=== PATIENT | female | born 1930 | race Hispanic/Latino ===

== ENCOUNTER 2017-05-11 10:45 | Inpatient (IN) | payer MEDICARE ==
[2017-05-11] MEDS ORDERED: Sodium Chloride 0.9% 1,000 ML IV STA (11:43)
--- NOTE | 2017-05-11 11:49 | ED PDOC ---
Arrival/HPI - General Chief Complaint: GI Problem Time Seen by Provider: 05/11/17 11:41 Historian: Patient - History of Present Illness Narrative History of Present Illness (Text): 05/11/17 11:44 Celestina Cruz is a 87 year old female, with a history of diverticulitis, TIA , and recent aortic valve replacement on Plavix, presents to the emergency department complaining of 2 day duration of rectal bleeding. States that symptoms are similar to her previous episode of diverticulitis. Reports she noticed bright red blood while wiping. Denies any abdominal pain, straining, and constipation. Patient was advised by to stop taking Plavix. She also complains of lightheadedness, generalized weakness and decreased appetite since the onset of symptoms. Denies any fever, chills ,chest pain, shortness of breath, nausea, vomiting, diarrhea, urinary symptoms or any other complaints at this time. PMD: . Time/Duration: Other (2 days ) Symptom Onset: Sudden Severity Level: Mild Activities at Onset: Light Past Medical History - Provider Review Nursing Documentation Reviewed: Yes - Infectious Disease Hx of Infectious Diseases: None - Tetanus Immunization Tetanus Immunization: Unknown - Reproductive Menopause: Yes - Cardiac Hx Cardiac Disorders: Yes (aortic sclerosis, MR) Hx Hypertension: Yes - Pulmonary Hx Chronic Obstructive Pulmonary Disease (COPD): No - Neurological HX Cerebrovascular Accident: No - HEENT Hx HEENT Disorder: No Hx Blind: No Hx Cataracts: No Hx Deafness: No Hx Difficulty Chewing: No Hx Epistaxis: No Hx Glaucoma: No Hx Macular Degeneration: No - Renal Hx Renal Failure: No - Endocrine/Metabolic Hx Diabetes Mellitus Type 1: No Hx Diabetes Mellitus Type 2: No Hx Hypothyroidism: No - Hematological/Oncological Hx Blood Transfusions: Yes (2 units before transfer ) Hx Blood Transfusion Reaction: No - Integumentary Hx Dermatological Disorder: No Hx Basal Cell Carcinoma: No Hx Eczema: No Hx Melanoma: No Hx Psoriasis: No Hx Squamous Cell Carcinoma: No - Musculoskeletal/Rheumatological Hx Arthritis: No - Gastrointestinal Hx Gastrointestinal Disorders: No Hx Colostomy: No Hx Crohn's Disease: No Hx Diverticulitis: No Hx Gall Bladder Disease: No Hx Gastroesophageal Reflux: Yes (history of Gi bleed) Hx Ileostomy: No Hx Liver Failure: No Hx Pancreatitis: No HX Swallowing Problems: No - Genitourinary/Gynecological Hx Genitourinary Disorders: No Hx Hematuria: No Hx Incontinence: No Hx Sexually Transmitted Diseases: No Hx Urinary Tract Infection: No - Psychiatric Hx Psychophysiologic Disorder: No Hx Anxiety: No Hx Bipolar Disorder: No Hx Depression: No Hx Emotional Abuse: No Hx Hallucinations: No Hx Panic Disorder: No Hx Post Traumatic Stress Disorder: No Hx Psychosis: No Hx Physical Abuse: No Hx Schizophrenia: No Hx Sexual Abuse: No Hx Substance Use: No - Past Surgical History Past Surgical History: No Previous - Surgical History Hx Tonsillectomy: Yes Hx Valve Replacement: Yes (03/2017) Other/Comment: hip surgery implant left - Anesthesia Hx Anesthesia: Yes Hx Anesthesia Reactions: No Hx Malignant Hyperthermia: No - Suicidal Assessment Feels Threatened In Home Enviroment: No Family/Social History - Physician Review Nursing Documentation Reviewed: Yes Family/Social History: No Known Family HX Smoking Status: Former Smoker Hx Alcohol Use: No Hx Substance Use: No Hx Substance Use Treatment: No Allergies/Home Meds Allergies/Adverse Reactions: Allergies No Known Allergies Allergy (Verified 05/11/17 11:21) Home Medications: Home Meds Medication Instructions Recorded Confirmed Aspirin [Aspirin Chewable] 81 mg PO DAILY 05/11/17 05/11/17 Atorvastatin [Lipitor] 40 mg PO HS 05/11/17 05/11/17 Clopidogrel [Plavix] 1 tab PO DAILY 05/11/17 05/11/17 Review of Systems - Physician Review All systems were reviewed & negative as marked: Yes - Review of Systems Constitutional: Fatigue. absent: Weight Change, Fevers Respiratory: Normal. absent: SOB, Cough, Sputum Cardiovascular: Normal. absent: Chest Pain, Palpitations Gastrointestinal: Appetite Changes, Hematochezia, Other (rectal bleeding ). absent: Abdominal Pain, Diarrhea, Nausea, Vomiting, Hematemesis Genitourinary Female: Normal. absent: Dysuria, Frequency Musculoskeletal: Normal Neurological: Other (lightheadedness ). absent: Headache, Focal Weakness Physical Exam Vital Signs Reviewed: Yes Vital Signs Temp Pulse Resp BP Pulse Ox 05/11/17 14:47 109 H 18 139/67 100 05/11/17 12:17 100 H 18 147/73 97 05/11/17 11:11 98.4 F 118 H 19 137/79 96 Temperature: Afebrile Blood Pressure: Normal Pulse: Tachycardic Respiratory Rate: Normal Appearance: Positive for: Well-Appearing, Non-Toxic, Comfortable Pain Distress: None Mental Status: Positive for: Alert and Oriented X 3 - Systems Exam Head: Present: Atraumatic, Normocephalic Pupils: Present: PERRL Conjunctiva: Present: Normal Respiratory/Chest: Present: Clear to Auscultation, Good Air Exchange. No: Respiratory Distress, Accessory Muscle Use Cardiovascular: Present: Regular Rate and Rhythm, Normal S1, S2. No: Murmurs Abdomen: Present: Normal Bowel Sounds. No: Tenderness, Distention, Peritoneal Signs, Rebound, Guarding Rectal: Present: Melena, Other (Chaperoned by EMTDorinda. guaiac positive. + ve black stool. ). No: Rectal Tenderness, Hemorrhoids, Fissures Upper Extremity: Present: Normal Inspection. No: Cyanosis, Edema Lower Extremity: Present: Normal Inspection. No: Edema Neurological: Present: GCS=15, CN II-XII Intact, Speech Normal, Motor Func Grossly Intact, Normal Sensory Function Skin: Present: Warm, Dry, Normal Color. No: Rashes Psychiatric: Present: Alert, Oriented x 3, Normal Insight, Normal Concentration Medical Decision Making ED Course and Treatment: 05/11/17 11:52 Impression: A 87 year old female who presents to the emergency department complaining of rectal bleeding for past 2 days. Differential Diagnosis included but are not limited to: GI bleed r/o diverticulitis Plan: -- EKG -- CT Abd/Pel -- Labs, cardiac enzymes -- Chest X-ray -- Protonix -- IVF -- Urinalysis -- Reassess and disposition Progress Notes: 05/11/17 11:54 EKG interpreted by me: Sinus Tachycardia @ 105 bpm. Normal [place]. Normal interval. 05/11/17 14:46 Chest X-ray read by radiologist IMPRESSION: No acute cardiopulmonary disease. 05/11/17 15:03 PROCEDURE: CT Abdomen and Pelvis with contrast FINDINGS: IMPRESSION: 1. No bowel or urinary tract obstruction, mesenteric edema, ascites or free intraperitoneal gas. 2. Distended but thin walled urinary bladder. 3. Cholelithiasis within a contracted gallbladder. 4. Extensive diffuse colonic diverticular disease mostly concentrated at the sigmoid segment without acute findings. 05/11/17 15:[address] free[address] reviewed. Patient's PMD is Dr. Florian who is being covered by the Hospitalist. I discussed the case with Dr. Owusu who will place under his service. - Critical Care Critical Care Minutes: 30 minutes - Lab Interpretations Lab Results: 05/11/17 12:00 05/11/17 12:00 Lab Results 05/11/17 12:20: Urine Color Yellow, Urine Appearance Clear, Urine pH 6.0, Ur Specific [place] 1.020, Urine Protein Negative, Urine Glucose (UA) Negative, Urine Ketones Negative, Urine Blood Large H, Urine Nitrate Positive H, Urine Bilirubin Negative, Urine Urobilinogen 0.2, Ur Leukocyte Esterase Small H, Urine RBC 0 - 2, Urine WBC 1 - 3, Ur Epithelial Cells 1 - 3, Urine Bacteria Large 05/11/17 12:00: Blood Type A POSITIVE, Antibody Screen Negative, BBK History Checked Patient has bt 05/11/17 12:00: Sodium 139, Potassium 4.0, Chloride 104, Carbon Dioxide 26, Anion Gap 13, BUN 27 H, Creatinine 1.0, Est GFR ( Amer) > 60, Est GFR ( Non-Af Amer) 52, Random Glucose 116 H, Calcium 9.6, Total Bilirubin 0.8, AST 32 , ALT 32, Alkaline Phosphatase 68, Lactate Dehydrogenase 706 H, Total Creatine Kinase 53, Troponin I < 0.01, Total Protein 6.9, Albumin 4.1, Globulin 2.8, Albumin/Globulin Ratio 1.5, Lipase 79 05/11/17 12:00: PT 11.1, INR 1.03, APTT 25.0 05/11/17 12:00: WBC 7.3 D, RBC 3.14 L, Hgb 9.6 L, Hct 29.1 L, MCV 92.7, MCH 30.6, MCHC 33.0, RDW 13.8, Plt Count 252, MPV 9.7, Gran % 77.6 H, Lymph % (Auto ) 15.6 L, [place] % (Auto) 6.3 H, Eos % (Auto) 0.4 L, Baso % (Auto) 0.1, Gran # 5.62, Lymph # 1.1 L, [place] # 0.5, Eos # 0.0, Baso # 0.01 I have reviewed the lab results: Yes Interpretation: Abnormal lab values (hgb 9 compared to 12 on last admission) - RAD Interpretation Radiology Orders: 05/11/17 11:42 CHEST PORTABLE [RAD] Stat 05/11/17 11:43 ABD & PELVIS IV CONTRAST ONLY [CT] Stat Forging Machine Hand: Radiologist - Medication Orders Current Medication Orders: Discontinued Medications Sodium Chloride (Sodium Chloride 0.9%) 1,000 mls @ 999 mls/hr IV .Q1H1M STA Stop: 05/11/17 12:43 Last Admin: 05/11/17 12:04 Dose: 999 mls/hr Iohexol (Omnipaque 350 100 Ml) Confirm Administered Dose 350 mg .ROUTE .STK-MED ONE Stop: 05/11/17 13:53 Pantoprazole Sodium (Protonix Inj) 80 mg IVP STAT STA Stop: 05/11/17 11:43 Last Admin: 05/11/17 12:05 Dose: 80 mg - Scribe Statement The provider has reviewed the documentation as recorded by the Rachealibpaula Nuñez Provider Attestation: Provider Scribe Attestation: All medical record entries made by the Rachealibpaula were at my direction and personally dictated by me. I have reviewed the chart and agree that the record accurately reflects my personal performance of the history, physical exam, medical decision making, and the department course for this patient. I have also personally directed, reviewed, and agree with the discharge instructions and disposition. Disposition/Present on Arrival - Present on Arrival Any Indicators Present on Arrival: No History of DVT/PE: No History of Uncontrolled Diabetes: No Urinary Catheter: No History of Decub. Ulcer: No History Surgical Site Infection Following: None - Disposition Have Diagnosis and Disposition been Completed?: Yes Diagnosis: Gastrointestinal bleed Disposition: HOSPITALIZED Disposition Time: 15:30 Patient Plan: Admission Condition: FAIR Referrals: Philip Florian MD [Primary Care Provider] - Follow up with primary Forms: [employer] ([place]orean)
[2017-05-11 12:10] LABS: ADD MANUAL DIFF? NO
[2017-05-11 12:13] LABS: BASO # 0.01 K/mm3 (0.0-2.0); BASO % 0.1 % (0.0-3.0); EOS % 0.4 % (1.5-5.0); GRAN # 5.62 (1.4-6.5); GRAN % 77.6 % (50.0-68.0); HEMATOCRIT 29.1 % (36.0-48.0); LYMPH # 1.1 (1.2-3.4); LYMPH % 15.6 % (22.0-35.0); MEAN CELL VOLUME 92.7 fL (80.0-105.0); MEAN CORPUSCULAR HEMOGLOBIN 30.6 pg (25.0-35.0); MEAN PLATELET VOLUME 9.7 fl (7.0-11.0); MONO # 0.5 (0.1-0.6); MONO % 6.3 % (1.0-6.0); PLATELET COUNT 252 10^3/uL (120.0-450.0); RED CELL DISTRIBUTION WIDTH 13.8 % (11.5-14.5); WHITE BLOOD COUNT 7.3 10^3/ul (4.5-11.0)
[2017-05-11 12:24] LABS: INR 1.03 (0.93-1.08)
[2017-05-11 12:25] LABS: ALB/GLOB RATIO 1.5 (1.1-1.8); ALKALINE PHOSPHATASE 68 U/L (38-133); ALT/SGPT 32 U/L (7-56); AST/SGOT 32 U/L (15-39); BILIRUBIN,TOTAL 0.8 mg/dL (0.2-1.3); BLOOD UREA NITROGEN 27 mg/dL (7-21); CALCIUM 9.6 mg/dL (8.4-10.5); CARBON DIOXIDE 26 mmol/L (21-33); CHLORIDE 104 mmol/L (98-107); GFR AFRICAN-AMERICAN > 60; GLUCOSE,RANDOM 116 mg/dL (70-110); LIPASE 79 U/L (23-300); SODIUM 139 mmol/L (132-148); TOTAL PROTEIN 6.9 g/dL (5.8-8.3)
[2017-05-11 12:26] LABS: URINE BILIRUBIN NEGATIVE (NEGATIVE); URINE BLOOD LARGE (NEGATIVE); URINE GLUCOSE (UA) NEGATIVE (NEGATIVE); URINE KETONE NEGATIVE (NEGATIVE); URINE LEUKOCYTE ESTERASE SMALL Leu/uL (NEGATIVE); URINE PROTEIN NEGATIVE mg/dL (<30 mg/dL); URINE UROBILINOGEN 0.2 E.U./dL (<1 E.U./dL)
[2017-05-11 12:27] LABS: URINE APPEARANCE CLEAR (CLEAR); URINE COLOR YELLOW (YELLOW)
[2017-05-11 12:36] LABS: TROPONIN I < 0.01 ng/mL
[2017-05-11 12:44] LABS: URINE BACTERIA LARGE (NEG); URINE RBC 0 - 2 /hpf (0-2)
[2017-05-11] MEDS ORDERED: Iohexol 350 MG/100 ML VIAL ONE (13:52)
--- NOTE | 2017-05-11 14:25 | RAD ---
HISTORY: gi bleed COMPARISON: Prior portable chest radiograph 02/03/2015. FINDINGS: LUNGS: No active pulmonary disease. PLEURA: No significant pleural effusion identified, no pneumothorax apparent. CARDIOVASCULAR: Normal. Prominent epicardial fat again appreciated at the right heart border. OSSEOUS STRUCTURES: No significant abnormalities. VISUALIZED UPPER ABDOMEN: Normal. OTHER FINDINGS: None. IMPRESSION: No acute cardiopulmonary disease.
--- NOTE | 2017-05-11 14:54 | CT ---
PROCEDURE: CT Abdomen and Pelvis with contrast HISTORY: gi bleed r/o diverticulitis` COMPARISON: None. TECHNIQUE: Contrast dose: Omnipaque 350, 100 cc Radiation dose: Total exam DLP = 469 mGy-cm. This CT exam was performed using one or more of the following dose reduction techniques: Automated exposure control, adjustment of the mA and/or kV according to patient size, and/or use of iterative reconstruction technique. FINDINGS: LOWER THORAX: Limited bilateral basilar dependent atelectasis. An aortic valve stent is identified placed. LIVER: A tiny lucency is identified in the central liver with remainder unremarkable. It is too small to characterize. No definite intrahepatic biliary dilatation. GALLBLADDER AND BILE DUCTS: Limited cholelithiasis within a contracted gallbladder. PANCREAS: Unremarkable. No gross lesion or ductal dilatation. SPLEEN: Unremarkable. ADRENALS: Unremarkable. No mass. KIDNEYS AND URETERS: Unremarkable. No hydronephrosis. No solid mass. VASCULATURE: Unremarkable. No aortic aneurysm. BOWEL: Extensive colonic diverticulosis diffusely noted but is most prominent at the sigmoid segment without acute findings. No bowel obstruction or mesenteric edema. No ascites or free intraperitoneal gas. APPENDIX: Normal appendix. PERITONEUM: Unremarkable. No free fluid. No free air. LYMPH NODES: Unremarkable. No enlarged lymph nodes. BLADDER: Rather distended but otherwise unremarkable appearing. . REPRODUCTIVE: No suspicious findings. BONES: A dextroscoliotic lumbar spinal deformity identified with advanced multilevel degenerative disc disease. 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 OTHER FINDINGS: None. IMPRESSION: 1. No bowel or urinary tract obstruction, mesenteric edema, ascites or free intraperitoneal gas. 2. Distended but thin walled urinary bladder. 3. Cholelithiasis within a contracted gallbladder. 4. Extensive diffuse colonic diverticular disease mostly concentrated at the sigmoid segment without acute findings.
--- NOTE | 2017-05-11 16:51 | CP.PCM.HP ---
"<AURELIO KATZ - Last Filed: 05/11/17 17:35> History of Present Illness - History of Present Illness History of Present Illness: Ms. Cruz is an 87yo F PMHX of GI bleeding 2/2 diverticular dz s/p 6u transfusions in 2014, AVR, TIA and L ORIF who presents with c/o blood streaks when wiping x2 days (3-4 BM). Pt states that she notices the end of the stools are also bloody, and that the stool is a bit dark. Denies being constipated and states that she hasn't been having too many BM due to not eating very well. The patient states that she had a similar episode in 2014 that was more severe because the stool was darker and there was more apparent blood. The patient recently had an AV replacement in [place] by Dr. Wilks. Pt denies cp, sob, palpitations, fevers, n/v/d, constipation and states that she eats very healthy. PMHx: diverticulosis, past GI bleeds s/p transfusion in 2014, TIA, AV replacement 1 month ago PSHx: L Hip ORIF Meds: Atorvastatin 40mg, PTX 40mg, Verapamil 180mg, Zetia 10mg, ASA 81, Plavix 75mg, B12, MV Allergies: NKDA SHx: lives alone, has family support and children; denies ETOH, tobacco and illicit drug use PMD: Dr. Florian Pipe Fittings Molder: Dr. Ratliff and Dr. Jeffrey Mcmahan ( | Office # ) Present on Admission - Present on Admission Any Indicators Present on Admission: No Review of Systems - Constitutional Constitutional: As Per HPI. absent: Chills, Fatigue, Fever, Headache, Lethargy , Weakness - EENT Eyes: As Per HPI. absent: Blurred Vision, Change in Vision Ears: Decreased Hearing. absent: Ear Pain, Tinnitus, Disequilibrium, Dizziness Nose/Mouth/Throat: As Per HPI, Dry Mouth. absent: Epistaxis, Dysphagia, Halitosis, Hoarsness - Cardiovascular Cardiovascular: As Per HPI. absent: Chest Pain, Chest Pain with Activity, Dyspnea, Dyspnea on Exertion, Edema, Irregular Heart Rhythm, Leg Edema, Lightheadedness, Palpitations, Pedal Edema, Syncope - Respiratory Respiratory: As Per HPI. absent: Cough, Dyspnea, Hemoptysis, Wheezing, Snoring , Stridor, Chest Congestion - Gastrointestinal Gastrointestinal: As Per HPI, Change in Bowel Habits, Hematochezia. absent: Abdominal Pain, Bloating, Constipation, Diarrhea, Fecal Incontinence, Hematemesis, Loose Stools, Melena - Genitourinary Genitourinary: absent: Dysuria, Flank Pain, Urinary Incontinence, Urinary Frequency - Musculoskeletal Musculoskeletal: As Per HPI - Integumentary Integumentary: Unusual Bruising - Neurological Neurological: As Per HPI, Abnormal Hearing (difficult of hearing). absent: Dizziness, Frequent Falls, Headaches, Lack of Coordination, Memory Loss, Syncope , Tremor Past Patient History - Infectious Disease Hx of Infectious Diseases: None - Tetanus Immunizations Tetanus Immunization: Unknown - Past Medical History & Family History Past Medical History?: Yes - Past Social History Smoking Status: Former Smoker Alcohol: None Drugs: Denies Home Situation {Lives}: Alone - CARDIAC Hx Cardiac Disorders: Yes (MR, aortic sclerosis s/p AVR (prosthetic hugo)) Hx Hypertension: Yes - PULMONARY Hx Respiratory Disorders: No Hx Chronic Obstructive Pulmonary Disease (COPD): No - NEUROLOGICAL Hx Neurological Disorder: Yes HX Cerebrovascular Accident: No Hx Transient Ischemic Attacks (TIA): Yes - HEENT Hx HEENT Problems: No Hx Blind: No Hx Cataracts: No Hx Deafness: No Hx Difficulty Chewing: No Hx Epistaxis: No Hx Glaucoma: No Hx Macular Degeneration: No - RENAL Hx Renal Failure: No - ENDOCRINE/METABOLIC Hx Diabetes Mellitus Type 1: No Hx Diabetes Mellitus Type 2: No Hx Hypothyroidism: No - HEMATOLOGICAL/ONCOLOGICAL Hx Blood Transfusions: Yes (6u in 2014) Hx Blood Transfusion Reaction: No - INTEGUMENTARY Hx Dermatological Problems: No Hx Basil Cell: No Hx Eczema: No Hx Melanoma: No Hx Psoriasis: No Hx Squamous Cell: No - MUSCULOSKELETAL/RHEUMATOLOGICAL Hx Arthritis: No - GASTROINTESTINAL Hx Gastrointestinal Disorders: Yes Hx Colostomy: No Hx Crohn's Disease: No Hx Diverticulitis: Yes Hx Gall Bladder Disease: No Hx Gastroesophageal Reflux: Yes (history of Gi bleed) Hx Ileostomy: No Hx Liver Failure: No Hx Pancreatitis: No HX Swallowing Problems: No - GENITOURINARY/GYNECOLOGICAL Hx Genitourinary Disorders: No Hx Hematuria: No Hx Incontinence: No Hx Sexually Transmitted Disorders: No Hx Urinary Tract Infection: No - PSYCHIATRIC Hx Psychophysiologic Disorder: No Hx Anxiety: No Hx Bipolar Disorder: No Hx Depression: No Hx Emotional Abuse: No Hx Hallucinations: No Hx Panic Symptoms: No Hx Post Traumatic Stress Disorder: No Hx Psychosis: No Hx Physical Abuse: No Hx Schizophrenia: No Hx Sexual Abuse: No Hx Substance Use: No - SURGICAL HISTORY Hx Surgeries: Yes (L Hip ORIF and AV replacement w/ prosthetic valve) Hx Joint Replacement: Yes Hx Orthopedic Surgery: Yes Hx Tonsillectomy: Yes Hx Valve Replacement: Yes (Aortic valve 03/2017) Other/Comment: hip surgery implant left - ANESTHESIA Hx Anesthesia: Yes Hx Anesthesia Reactions: No Hx Malignant Hyperthermia: No Meds Allergies/Adverse Reactions: Allergies Allergy/AdvReac Type Severity Reaction Status Date / Time No Known Allergies Allergy Verified 05/11/17 11:21 Physical Exam - Constitutional Appears: Well, Non-toxic, No Acute Distress - Head Exam Head Exam: ATRAUMATIC, NORMAL INSPECTION, NORMOCEPHALIC - Eye Exam Eye Exam: EOMI, Normal appearance, PERRL. absent: Scleral icterus Pupil Exam: NORMAL ACCOMODATION Additional comments: eyelid pallor - ENT Exam ENT Exam: Mucous Membranes Dry, Normal Exam - Neck Exam Neck exam: Positive for: Full Rom, Normal Inspection - Respiratory Exam Respiratory Exam: Clear to Auscultation Bilateral, NORMAL BREATHING PATTERN. absent: Rales, Rhonchi, Wheezes, Respiratory Distress, Stridor - Cardiovascular Exam Cardiovascular Exam: Tachycardia, REGULAR RHYTHM, +S1, +S2. absent: Gallop, JVD , Rubs, Systolic Murmur - GI/Abdominal Exam GI & Abdominal Exam: Normal Bowel Sounds, Soft. absent: Distended, Firm, Guarding, Organomegaly, Tenderness - Expanded Rectal Exam Expanded Expanded Rectal Exam: Heme(-)Stool (no blood on glove), NORMAL RECTAL TONE. absent: Bloody Stool, Hemorrhoids, Laceration, Mass, Tenderness - Neurological Exam Neurological exam: Alert, Normal Gait, Oriented x3 - Psychiatric Exam Psychiatric exam: Normal Affect, Normal Mood - Skin Skin Exam: Normal Color, Warm Additional comments: multiple locations of ecchymosis on skin Results - Vital Signs Recent Vital Signs: Last Vital Signs Temp 98.4 F 05/11/17 11:11 Pulse 100 H 05/11/17 16:10 Resp 18 05/11/17 16:10 BP 140/71 05/11/17 16:10 Pulse Ox 98 05/11/17 16:10 - Labs Result Diagrams: 05/11/17 12:00 05/11/17 12:00 Assessment & Plan - Assessment and Plan (Free Text) Assessment: 87 yo F PMHx diverticulosis, past GI bleeds s/p transfusion in 2015, TIA, AVR that was on Plavix and ASA who presents with acute lower GI bleed x2 days. Plan: 1. GI bleed likely 2/2 diverticulosis - hold ASA and Plavix - clear liquid diet - NS - GI consulted, recs appreciated 2. Anemia - H/H stable currently - monitor 3. hx of AV replacement w/ bio-prosthetic valve - Cardio consult - transfer pt to remote tele - Contacted Dr. Mcmahan, per pt's request, and he agreed with plan to hold ASA and Plavix 4. UTI (asymptomatic) - UA+ (pt aware of UTI as she was told before her AVR surgery that she had one) - Cipro 5. Hx of TIA - continue statin and zetia PPX: PTX/SCDs Diet: CLD Patient was seen, discussed and reviewed with attending, Dr. Bong Katz PGY1 - Date & Time Date: 05/11/17 Time: 16:00 <Frieda Woody - Last Filed: 05/12/17 13:47> Results - Vital Signs Recent Vital Signs: Last Vital Signs Temp 98.4 F 05/11/17 11:11 Pulse 100 H 05/11/17 16:10 Resp 18 05/11/17 16:10 BP 140/71 05/11/17 16:10 Pulse Ox 98 05/11/17 16:10 - Labs Result Diagrams: 05/12/17 07:00 05/12/17 07:00 Attending/Attestation - Attestation I have personally seen and examined this patient.: Yes I have fully participated in the care of the patient.: Yes I have reviewed all pertinent clinical information: Yes Notes (Text): 05/11/17 17:45 O/E conjunctiva is pale. As per information from her senior net web developer at [place],she had a prosthetic Aortic valve. 05/11/17 17:46"
[2017-05-11] MEDS: Sodium Chloride 0.9% 1,000 ML IV SCH (17:55)
[2017-05-11 18:08] VITALS: BMI 26.4
[2017-05-11] MEDS ORDERED: Ciprofloxacin 200mg/100ml D5W 100 ML IVPB SCH (22:00)
--- NOTE | 2017-05-11 22:35 | CARD ---
APPROVED REPORT EKG Measurement Heart [id number] [place] [id number] <Conclusion> Sinus tachycardia Otherwise normal ECG
[2017-05-12] MEDS: Sodium Chloride 0.9% 1,000 ML IV SCH ×3 (06:03→22:26)
[2017-05-12 07:37] LABS: ADD MANUAL DIFF? NO
[2017-05-12 07:43] LABS: BASO # 0.01 K/mm3 (0.0-2.0); BASO % 0.2 % (0.0-3.0); EOS # 0.1 (0.0-0.7); EOS % 3.2 % (1.5-5.0); GRAN % 58.5 % (50.0-68.0); HEMATOCRIT 24.8 % (36.0-48.0); LYMPH # 1.3 (1.2-3.4); LYMPH % 30.5 % (22.0-35.0); MEAN CELL VOLUME 92.2 fL (80.0-105.0); MEAN CORPUSCULAR HEMOGLOBIN 30.1 pg (25.0-35.0); MEAN CORPUSCULAR HGB CONC 32.7 g/dl (31.0-37.0); MEAN PLATELET VOLUME 9.9 fl (7.0-11.0); MONO # 0.3 (0.1-0.6); MONO % 7.6 % (1.0-6.0); PLATELET COUNT 216 10^3/uL (120.0-450.0); RED CELL DISTRIBUTION WIDTH 13.6 % (11.5-14.5); WHITE BLOOD COUNT 4.1 10^3/ul (4.5-11.0)
[2017-05-12 07:48] LABS: INR 1.02 (0.93-1.08)
[2017-05-12 07:58] LABS: ALB/GLOB RATIO 1.3 (1.1-1.8); ALKALINE PHOSPHATASE 56 U/L (38-133); ALT/SGPT 27 U/L (7-56); AST/SGOT 33 U/L (15-39); BILIRUBIN,TOTAL 0.5 mg/dL (0.2-1.3); BLOOD UREA NITROGEN 16 mg/dL (7-21); CALCIUM 8.6 mg/dL (8.4-10.5); CARBON DIOXIDE 26 mmol/L (21-33); CHLORIDE 106 mmol/L (98-107); GFR AFRICAN-AMERICAN > 60; GLUCOSE,RANDOM 83 mg/dL (70-110); POTASSIUM 3.6 mmol/L (3.6-5.0); SODIUM 139 mmol/L (132-148); TOTAL PROTEIN 5.8 g/dL (5.8-8.3)
[2017-05-12] MEDS: Verapamil 180 mg ER Tab PO SCH (09:10)
--- NOTE | 2017-05-12 12:49 | PN ---
DATE: SUBJECTIVE: An 87-year-old white female with history of recent TAVR procedure for aortic valve replacement, history of CVA prior to her TAVR procedure, history of recurrent GI bleed in the past, history of fractured hip replacement. The patient has long history of aortic stenosis status post TAVR. The patient was admitted to the hospital with some rectal bleeding, was found to have a hemoglobin that had dropped with some blood in the stool. CT showed extensive diverticulosis. Hemoglobin on admission was 8.1 today and MCV was 92. The patient had been on Plavix and aspirin. She does have extensive ecchymosis of the upper extremities. The rest of laboratory data remarkable except for some urinary tract infection. The patient is afebrile. Vital signs are stable. Blood pressure is 140/70, pulse is 91. The patient is afebrile. She has no further bleeding this morning. Abdomen is soft. She has no history of fever, chills or abdominal pain. She did find some blood while moving her bowels. It was dark, but not tarry. She has had some light headedness and dizziness when she came to the hospital. She is still about the same. She does have a history of recent heart operation. Her hemoglobin is 8.1. She will be typed and crossed and transfused and followed. PHYSICAL EXAMINATION VITAL SIGNS: Stable. . Case will be discussed with her outpatient interior design assistant. Possibly, putting her back on once bleeding has resolved. was unremarkable. HEENT: Conjunctivae are pale. HEART: . No murmurs. LUNGS: Clear to auscultation and percussion. ABDOMEN: Soft, bowel sounds normoactive. There is no masses palpable. There is no tenderness. EXTREMITIES: Without cyanosis, clubbing or edema. IMPRESSION: 1. Gastrointestinal bleeding most likely lower gastrointestinal bleed. 2. History of cerebrovascular accident. 3. History of aortostenosis, treated with transcatheter aortic valve replacement procedure. 4. History gastrointestinal bleed in the past. 5. Diverticulosis with bleed. 6. Anemia of bleed loss. Philip Florian MD
--- NOTE | 2017-05-12 19:55 | CON ---
GASTROENTEROLOGY CONSULTATION DATE OF CONSULTATION: 05/12/2017 REQUESTING PHYSICIAN: Dr. Smiley. REASON FOR CONSULTATION: I have been asked to see this 87-year-old female who comes to the hospital with two days of blood per rectum after wiping. The patient had a TAVR about a month ago and was started on aspirin and Plavix. The patient has had some constipation. She has a history of lower GI bleed requiring multiple blood transfusion two years ago from diverticulosis. Her last colonoscopy from four years ago revealed diverticulosis. She also had an upper endoscopy at that time which revealed a nonbleeding gastric ulcer and erosive esophagitis. She currently denies any chest pain or shortness of breath. In the hospital, her blood count has drooped about a gram from 9.6 to 8.2. She denies any nausea and vomiting, chest pain or shortness of breath. PAST MEDICAL HISTORY: Notable for aortic stenosis, status post TAVR approximately one month ago. She also has a history of TIA, lower GI bleeding, and diverticulosis. PAST SURGICAL HISTORY: Notable for left hip ORIF. SOCIAL HISTORY: She denies cigarettes smokes or alcohol use. FAMILY HISTORY: Noncontributory. REVIEW OF SYSTEMS: A 14-point review of systems is notable for passing bright red blood per rectum with wiping. PHYSICAL EXAMINATION: GENERAL: A well-developed female lying in bed, no acute distress. VITAL SIGNS: Reveal temperature of 98.4, blood pressure 156/73, and heart rate of 100. HEENT: Reveal sclerae to be white, conjunctivae pale. NECK: Supple. LUNGS: Chest reveal lungs to be clear. HEART: Exam reveals a regular rate and rhythm. ABDOMEN: Soft and nontender. EXTREMITIES: Show no edema. RECTAL: Shows present of a left posterior external hemorrhoid without any blood mass in the rectal vault. IMAGING DATA: CT scan of the abdomen and pelvis shows extensive diverticulosis throughout the colon, predominantly in the sigmoid colon. LABORATORY DATA: Her electrolytes are normal. BUN is 16, creatinine is 0.9. CBC reveals hemoglobin down to 8.1, white blood cell count 4.1, and platelet count 216, 000. IMPRESSION: This is an 87-year-old female with rectal bleeding, drop in her hemoglobin, I suspect that her rectal bleeding is from hemorrhoids. She does have a history of peptic ulcer disease. She is one month status post transcatheter aortic valve replacement, on aspirin and Plavix. She is currently receiving one unit of pack red blood cells. RECOMMENDATIONS: 1. I will advance the patient's diet. 2. Follow up serial hematocrits. She is currently receiving a unit of pack red blood cells. 3. Continue PPI. 4. We will obviously have to hold aspirin and Plavix for the time being. I will speak with her lift truck mechanic, Dr. Flavio Cabello about holding aspirin and Plavix for several more days. Samuel Ratliff MD
--- NOTE | 2017-05-13 01:14 | CON ---
CARDIOLOGY CONSULTATION REASON FOR CONSULTATION: Recent TAVR. HISTORY OF PRESENT ILLNESS: The patient is an 87-year-old female who underwent what sounded from the patient to be transcutaneous aortic valve replacement at [facility] 1 month ago. The patient stated that she had a narrow valve that required that procedure. The patient has no local security system installer in [place] and is currently following with her security system installer at [facility], his name is Dr. Wilks. The patient has history of diverticulosis and experienced severe diverticular bleed few years ago that required blood transfusion and was warned not to take any antiplatelet therapy at that time. The patient after her recent TAVR was placed on aspirin and Plavix. The patient presented because of rectal bleeding that was associated with dizziness, but no syncope. The patient is unaware of any history of coronary stenting recently or in the past. SOCIAL HISTORY: The patient is a former smoker. PMHx. Diverticulosis, , CVA CURRENT MEDICATIONS: Calan SR 180 mg once a day, Lipitor 40 mg once a day, Protonix 40 mg IV_ once a day, normal saline at 10 mL/hr, Zetia 10 mg once a day. REVIEW OF SYSTEMS: No hematemesis. No retrosternal chest pain. No shortness of breath. PHYSICAL EXAMINATION GENERAL: The patient is an elderly female who does not appear to be in any distress. VITAL SIGNS: Blood pressure 153/66, heart rate 77, temperature 98.5, respirations 16. HEENT: Pale conjunctivae. CHEST: Clear. HEART: S1 and S2 regular. ABDOMEN: Soft. EXTREMITIES: No edema or calf tenderness. LABORATORY DATA: Today SMA-7 is entirely within normal limit. One set of troponin yesterday was within normal limit, lipase is within normal limit. PT and INR are within normal limits. Hemoglobin and hematocrit today is 8.1 and 24.8, white count and platelet count of 4.1 and 216,000. Chest x-ray was unremarkable. EKG revealed sinus tachycardia at rate of 104. Abdomen and pelvis CT scan revealed no bowel or urinary tract obstruction. Distended, but thin-walled urinary bladder, cholelithiasis within a contracted gallbladder. Extensive diffuse chronic diverticular disease mostly concentrated at the sigmoid segment. Overall, acute findings. ASSESSMENT: 1. Status post transcatheter aortic valve replacement. We have no documents to substantiate the exact procedure and I will request the records from [facility]. 2. Active rectal bleeding, most likely diverticular bleeding. 3. Anemia. 4. Hypertension. CONDITIONS: Continue current verapamil at 180 mg once daily, Lipitor at 40 mg once daily, Protonix 40 mg __IV once a day. Antiplatelets are on hold. I did request an echo; however, the patient declined to take this testing and stated that she will see her security system installer within few days and will have an outpatient echo study and for that reason she does not want to undergo an echocardiography study at [facility]. I could not verify any previous echo study from the Medicaid database. Marco Sheffield MD MTDD
[2017-05-13 08:01] LABS: ADD MANUAL DIFF? NO
[2017-05-13 08:03] VITALS: RESP 20
[2017-05-13 08:05] LABS: BASO # 0.01 K/mm3 (0.0-2.0); BASO % 0.2 % (0.0-3.0); EOS # 0.1 (0.0-0.7); EOS % 1.2 % (1.5-5.0); GRAN # 4.54 (1.4-6.5); GRAN % 69.8 % (50.0-68.0); LYMPH # 1.5 (1.2-3.4); LYMPH % 22.7 % (22.0-35.0); MEAN CELL VOLUME 90.7 fL (80.0-105.0); MEAN CORPUSCULAR HEMOGLOBIN 30.8 pg (25.0-35.0); MEAN CORPUSCULAR HGB CONC 33.9 g/dl (31.0-37.0); MEAN PLATELET VOLUME 10.2 fl (7.0-11.0); MONO # 0.4 (0.1-0.6); MONO % 6.1 % (1.0-6.0); PLATELET COUNT 213 10^3/uL (120.0-450.0); RED CELL DISTRIBUTION WIDTH 13.6 % (11.5-14.5); WHITE BLOOD COUNT 6.5 10^3/ul (4.5-11.0)
[2017-05-13 08:28] LABS: ALB/GLOB RATIO 1.5 (1.1-1.8); ALKALINE PHOSPHATASE 60 U/L (38-133); ALT/SGPT 35 U/L (7-56); AST/SGOT 34 U/L (15-39); BILIRUBIN,TOTAL 0.7 mg/dL (0.2-1.3); BLOOD UREA NITROGEN 13 mg/dL (7-21); CALCIUM 8.5 mg/dL (8.4-10.5); CARBON DIOXIDE 22 mmol/L (21-33); CHLORIDE 106 mmol/L (95-110); GFR AFRICAN-AMERICAN > 60; GLUCOSE,RANDOM 87 mg/dL (70-110); POTASSIUM 3.5 mmol/L (3.6-5.0); SODIUM 139 mmol/L (132-148); TOTAL PROTEIN 5.9 g/dL (5.8-8.3)
[2017-05-13] MEDS: Sodium Chloride 0.9% 1,000 ML IV SCH ×2 (09:46→21:04)
[2017-05-13] MEDS ORDERED: POLYETHYLENE GLYCOL 3350 17 GM/Dose PACKET PO ONE (09:49)
[2017-05-13] MEDS: Verapamil 180 mg ER Tab PO SCH (10:47)
[2017-05-13] MEDS: POLYETHYLENE GLYCOL 3350 17 GM/Dose PACKET PO SCH ×2 (10:48→17:55)
--- NOTE | 2017-05-13 13:09 | PN ---
DATE OF VISIT: 05/13/2017 SUBJECTIVE: The patient is sitting up in bed. She denies any further rectal bleeding. She does admit to some constipation. She denies any abdominal pain, nausea, or vomiting. She is tolerating regular foods. Her hemoglobin is up to 11.2 from 8.1 after transfusion of 2 units of packed red blood cells. PHYSICAL EXAMINATION VITAL SIGNS: Reveal temperature of 98.4, blood pressure of 157/72, and heart rate of 94. ABDOMEN: Soft and nontender. LABORATORY DATA: Hemoglobin is 11.2 this morning and white blood cell count is 6.5. Chemistries reveal potassium of 3.5. IMPRESSION AND PLAN: An 87-year-old female with status post transcatheter aortic valve replacement for aortic stenosis, several weeks ago on aspirin and Plavix with anemia and rectal bleeding. I suspected that the anemia is of chronic anemia from aspirin and Plavix use. I suspected that the rectal bleeding is from hemorrhoids, she did have colonoscopy approximately four years ago which showed extensive diverticulosis at sigmoid and descending colon. The patient did have cerebrovascular accident without any residual deficits several months ago, hence the use of aspirin and Plavix after a transcatheter aortic valve replacement. I spoke with the patient's moisture machine tender Dr. Cabello who agrees with holding the aspirin and Plavix for several days and perhaps starting aspirin once her blood counts stabilizes. There are no plans for endoscopy or colonoscopy at this time. Samuel Ratliff MD
--- NOTE | 2017-05-13 19:03 | PN ---
DATE: 05/13/2017 SUBJECTIVE: The patient denies any dizziness. No reported rectal bleeding. She received 2 units of packed RBC transfusion. No shortness of breath. PHYSICAL EXAMINATION: VITAL SIGNS: Blood pressure 153/72, heart rate 94, temperature 98.4 and respiration 20. HEENT: Normocephalic. NECK: No JVD. CHEST: Clear. HEART: Sounds are regular. ABDOMEN: Soft. EXTREMITIES: No edema. LABORATORY DATA: Today, SMA-7 is within normal limits except for potassium of 3.5. Hemoglobin and hematocrit 11.2 and 33.0. White count and platelet count within normal limits. I did review Dr. Samuel Ratliff, director loss prevention's note and according to him, the anemia is suspected to be from aspirin and Plavix use and the rectal bleeding is from hemorrhoids. Dr. Ratliff spoke to the patient's core placer, Dr. Cabello who agreed withholding aspirin and Plavix for several days and perhaps starting aspirin once her blood count stabilizes. There are no plans for endoscopy or colonoscopy at this time. ASSESSMENT: 1. Status post transcatheter aortic valve replacement. 2. Chronic anemia most likely related to aspirin and Plavix use. 3. Diverticulosis conditions. PLAN: Continue current once a day, Feosol 325 mg t.i.d., Lipitor 40 mg once a day, and Protonix 40 mg once a day. I agree with current plan of holding aspirin and Plavix and resuming aspirin after stabilization of the hemoglobin and hematocrit. Marco Sheffield MD
--- NOTE | 2017-05-13 22:06 | PN ---
DATE: 05/13/2017 SUBJECTIVE: The patient an 87-year-old white female, with recent history of CVA, recent history of TAVR procedure, history of GI bleed in the past, admitted to the hospital on Plavix and aspirin with some GI bleed. Her hemoglobin is down to low at 8.1. The patient was transfused 2 units of blood. She is at 12.3 at this point. BUN and creatinine are stable. Platelet count is elevated at 525, sodium is 131, are 235. The patient was taken off Plavix and aspirin. She was seen in consultation by Dr. Ratliff. He did rectal examination, did not find obvious blood at that point. The patient had been passing some maroon-colored stools. She has no other symptomatology except for some lightheadedness and dizziness. Vital signs are stable. The patient will start physical therapy and occupational therapy. Most likely, she will be transferred to TCU to be followed carefully because of recent GI bleed and history of CVA. PHYSICAL EXAMINATION: VITAL SIGNS: Stable. : Unremarkable. ABDOMEN: Soft. IMPRESSION: An 87-year-old white female presenting with gastrointestinal bleed, on Plavix and aspirin. History of gastrointestinal bleed in the past, history of recent transcatheter aortic valve replacement procedure, history of recent cerebrovascular accident. Still complaining of lightheadedness and dizziness. Philip Florian MD
[2017-05-14] MEDS: Sodium Chloride 0.9% 1,000 ML IV SCH (04:33)
[2017-05-14 07:15] LABS: ADD MANUAL DIFF? NO
[2017-05-14 07:21] LABS: BASO # 0.01 K/mm3 (0.0-2.0); BASO % 0.1 % (0.0-3.0); EOS # 0.2 (0.0-0.7); EOS % 2.6 % (1.5-5.0); GRAN # 4.64 (1.4-6.5); GRAN % 67.5 % (50.0-68.0); HEMATOCRIT 31.2 % (36.0-48.0); LYMPH # 1.6 (1.2-3.4); LYMPH % 23.8 % (22.0-35.0); MEAN CELL VOLUME 91.8 fL (80.0-105.0); MEAN CORPUSCULAR HEMOGLOBIN 31.2 pg (25.0-35.0); MONO # 0.4 (0.1-0.6); PLATELET COUNT 189 10^3/uL (120.0-450.0); RED CELL DISTRIBUTION WIDTH 13.6 % (11.5-14.5); WHITE BLOOD COUNT 6.9 10^3/ul (4.5-11.0)
[2017-05-14 07:31] LABS: ALB/GLOB RATIO 1.4 (1.1-1.8); ALKALINE PHOSPHATASE 53 U/L (38-133); ALT/SGPT 37 U/L (7-56); AST/SGOT 28 U/L (15-39); BILIRUBIN,TOTAL 0.5 mg/dL (0.2-1.3); BLOOD UREA NITROGEN 12 mg/dL (7-21); CALCIUM 8.3 mg/dL (8.4-10.5); CARBON DIOXIDE 23 mmol/L (21-33); CHLORIDE 107 mmol/L (95-110); GFR AFRICAN-AMERICAN > 60; GLUCOSE,RANDOM 85 mg/dL (70-110); POTASSIUM 3.5 mmol/L (3.6-5.0); SODIUM 138 mmol/L (132-148); TOTAL PROTEIN 5.6 g/dL (5.8-8.3)
[2017-05-14] MEDS: POLYETHYLENE GLYCOL 3350 17 GM/Dose PACKET PO SCH ×2 (10:07→18:14)
[2017-05-14] MEDS: Verapamil 180 mg ER Tab PO SCH (10:09)
[2017-05-14 10:15] VITALS: BP 149/79; PULSE 80
--- NOTE | 2017-05-14 10:25 | PQF GENQUE ---
This form is a permanent part of the medical record Clarification of your documentation is requested to better reflect the severity of illness and intensity of treatment of your patient. Indicators present Pt w/ hx recurrent GIB dt Diverticular bleed, presented w/ episode or BRBPR, stool + OB, H&H- dropped from 9.6/ 29.1 to 8.1/ 24.9. Received 2 UPRBC. GI noted " suspected rectal bleed is from hemorrhoids" Can you specify in your documentation if you agree that source is the hemorrhoids? [] Specify: [] Source of GIB [] Specify: [] [] Specify: [] [] Specify: [] Location in the medical record that reflects the above clinical findings: []Dr Ratliff consult Treatment Provided: []Transfusion PRBC x 2 PHYSICIAN'S RESPONSE Based on your medical judgment of the clinical indicators outlined above please clarify the following: [x] Practitioner response [] If unable to determine, please check the box, sign and date. Present On Admission (POA) Indicator: [] Present at the time of admission [] Not present at the time of admission [x] Clinically Undetermined In responding to this query, please exercise your independent professional judgment. The fact that a question is asked does not imply that any particular answer is desired or expected. Thank you for your clarification on this documentation. If you have any questions please call:[ ][phone] * Thank you, [ ]Gely Esquivel RN CDS cyber policy and strategy planner [facility]
[2017-05-14 12:22] VITALS: TEMP 98.2; O2SAT 97
--- NOTE | 2017-05-14 13:37 | PN ---
DATE OF VISIT: 05/14/2017 SUBJECTIVE: The patient is lying in bed, comfortable. She denies any further rectal bleeding, melena, or abdominal pain. She did have bowel movement yesterday with MiraLax and Colace. She denies any further lightheadedness or dizziness. PHYSICAL EXAMINATION VITAL SIGNS: Reveal temperature of 98.5, blood pressure of 156/75, and heart rate of 92. ABDOMEN: Soft and nontender. LABORATORY DATA: Revealed hemoglobin of 10.6. Potassium of 3.5. IMPRESSION: An 87-year-old female with status post transcatheter aortic valve replacement for aortic stenosis about one month ago who comes to the hospital with anemia and rectal bleeding. I suspected that the rectal bleeding is from hemorrhoids. CT scan of the abdomen and pelvis showed diverticulosis. She complains of some constipation. She did have a stroke several months ago. Given the gastrointestinal bleeding, her aspirin and Plavix has been stopped. RECOMMENDATIONS: 1. We will continue to hold aspirin and Plavix for several more days. 2. Follow serial hematocrits. 3. Continue MiraLax, Colace, and iron replacement. Samuel Ratliff MD
--- NOTE | 2017-05-14 13:49 | PN ---
HISTORY: An 87-year-old female, admitted to the hospital with a GI bleed. The patient was transfused. She is back to normal. She was taken off of Plavix and aspirin. She has recent stroke, recent TAVR procedure. The patient is tolerating the blood transfusions well. Vital signs are stable. Case will be discussed with Dr. Cabello, her outpatient top installer, who agreed to stay out of Plavix and aspirin. No further workup by Dr. Ratliff. Stools are guaiac negative. Hemoglobin is up to 10.6. The patient has been ambulating and doing some physical therapy, most likely to go to TCU to continue her therapy. She has recent history of stroke. Philip Florian MD
[2017-05-14] MEDS ORDERED: Potassium Chloride 10 mEq ER Tab PO SCH (18:45)
--- NOTE | 2017-05-14 21:05 | PN ---
SUBJECTIVE: The patient denies any dizziness or weakness. She had multiple bowel movements. She reported slightly red blood after the completion of her bowel movement which was sent for analysis. PHYSICAL EXAMINATION: VITAL SIGNS: Blood pressure 149/79, heart rate 80, temperature 98.2, respirations 20. HEENT: Normocephalic. CHEST: Clear. HEART: S1, S2 regular. ABDOMEN: Soft. EXTREMITIES: No edema. LABORATORY DATA: Today's SMA-7 is within normal limit except for potassium of 3.5. Today's hemoglobin and hematocrit are 10.6 and 31.2 with a slight drop of about 0.6 gram of hemoglobin compared to yesterday. ASSESSMENT: 1. Status post transcatheter aortic valve replacement. 2. Chronic anemia, most likely related to hemorrhoidal bleeding. 3. Chronic obstructive lung disease. RECOMMENDATIONS: I did review the wool washer's recommendation and I agree with it that to hold aspirin and Plavix for several more days and follow serial hematocrits. Continue current verapamil SR at 180 mg once a day, Lipitor at 40 mg once a day, Zetia at 10 mg once a day, IV Protonix at 40 mg once a day, and Feosol at 1 tablet t.i.d. Marco Sheffield MD
--- NOTE | 2017-06-10 07:19 | DS ---
The patient was admitted to the hospital on 05/11/2017 and discharged home on 05/14/2017. SUMMARY: The patient is an 87-year-old female with history of CAD, status post history of also GI bleed in the past. History of recent aortic valve replacement and bypass surgery, history of diverticulosis, TIA, recent aortic valve replacement and history of CVA. During her valve replacement, the patient has been on Plavix and aspirin. She was admitted to the hospital with rectal bleeding, similar to the type which she has had in the past. She had a hemoglobin down to 6. The patient was transfused back. She had no further bleeding. The patient was taken off Plavix and aspirin and her gear room keeper was consulted. The patient had abdominal and pelvic CT, which were normal. The patient was seen in consultation by Dr. Anderson. There was no further bleeding noted at that time. Eventually, the patient count remained stable. It was felt that she will be able to be discharged home in improved condition to follow stool occult blood as an outpatient and follow her H and H as an outpatient and to resume baby aspirin approximately one week after discharge. FINAL DISCHARGE DIAGNOSES: Of the patient will be: 1. Lower gastrointestinal bleed. 2. History of cerebrovascular accident. 3. History of aortic valve replacement. 4. Diverticulitis. 5. Anemia of blood loss. Philip Florian MD
== END 2017-05-14 20:08 | disposition home or self-care (01) | DRG 394 ==
LOC: ED 10:45 → ERH 15:26 → 3RNO 16:57
PROVIDERS: ADMIT Internal Medicine; ATTEND Internal Medicine
PROC: 30233N1 Transfusion of Nonautologous Red Blood Cells into Peripheral Vein, Percutaneous Approach (ICD-10-PCS; principal; 2017-05-12)
DX: K64.9 Unspecified hemorrhoids (principal); N39.0 Urinary tract infection, site not specified; D50.0 Iron deficiency anemia secondary to blood loss (chronic); J44.9 Chronic obstructive pulmonary disease, unspecified; K25.9 Gastric ulcer, unspecified as acute or chronic, without hemorrhage or perforation; K22.10 Ulcer of esophagus without bleeding; I10 Essential (primary) hypertension; K57.90 Diverticulosis of intestine, part unspecified, without perforation or abscess without bleeding; K21.9 Gastro-esophageal reflux disease without esophagitis; K59.00 Constipation, unspecified; Z86.73 Personal history of transient ischemic attack (TIA), and cerebral infarction without residual deficits; Z95.2 Presence of prosthetic heart valve; Z87.891 Personal history of nicotine dependence

== ENCOUNTER 2017-06-17 08:38 | Observation (INO) | payer MEDICARE ==
[2017-06-17 10:23] LABS: BASO # 0.01 K/mm3 (0.0-2.0); BASO % 0.1 % (0.0-3.0); EOS % 0.4 % (1.5-5.0); GRAN # 7.16 (1.4-6.5); GRAN % 78.4 % (50.0-68.0); HEMATOCRIT 39.3 % (36.0-48.0); LYMPH # 1.5 (1.2-3.4); LYMPH % 16.3 % (22.0-35.0); MEAN CORPUSCULAR HEMOGLOBIN 31.4 pg (25.0-35.0); MEAN CORPUSCULAR HGB CONC 34.1 g/dl (31.0-37.0); MEAN PLATELET VOLUME 11.1 fl (7.0-11.0); MONO # 0.4 (0.1-0.6); MONO % 4.8 % (1.0-6.0); RED CELL DISTRIBUTION WIDTH 12.7 % (11.5-14.5); WHITE BLOOD COUNT 9.1 10^3/ul (4.5-11.0)
--- NOTE | 2017-06-17 10:25 | ED PDOC ---
Arrival/HPI - General Historian: Patient EM Caveat: Acuity of Condition - History of Present Illness Time/Duration: < week Symptom Onset: Gradual Symptom Course: Improving Activities at Onset: Rest Context: Sitting <ANNA TEJEDA - Last Filed: 06/17/17 13:44> <CristianaDominik - Last Filed: 06/17/17 16:19> - General Chief Complaint: Dizziness/Lightheaded Time Seen by Provider: 06/17/17 08:43 - History of Present Illness Narrative History of Present Illness (Text): Patient is a 87 year old female with a past medical history of diverticulosis, HTN, dyslipidemia, CVA, aortic valve replacement who presents to [facility] ED 06/17/17 with complaints of an episode of dizziness and right hand numbness and tingling which lasted about one minute on 06/15/17. Patient states she was sitting at the time of the episode. She denies any dysarthria, headache, weakness, chest pain, shortness of breath currently and at time of episode. Patient states that she had a history of aortic stenosis diagnosed two years ago but could not get replacement until she became symptomatic. 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 Medications: atorvastatin 40 mg, pantoprazole 40 mg, verapamil 180 mg, aspirin 81 mg 06/17/17 10:19 (ANNA TEJEDA) Past Medical History - Provider Review Nursing Documentation Reviewed: Yes - Infectious Disease Hx of Infectious Diseases: None - Tetanus Immunization Tetanus Immunization: Unknown - Cardiac Hx Cardiac Disorders: Yes (MR, aortic sclerosis s/p AVR (prosthetic hugo)) Hx Hypertension: Yes - Pulmonary Hx Respiratory Disorders: No Hx Chronic Obstructive Pulmonary Disease (COPD): No - Neurological Hx Neurological Disorder: Yes HX Cerebrovascular Accident: Yes - HEENT Hx HEENT Disorder: No Hx Blind: No Hx Cataracts: No Hx Deafness: No Hx Difficulty Chewing: No Hx Epistaxis: No Hx Glaucoma: No Hx Macular Degeneration: No - Renal Hx Renal Disorder: No Hx Renal Failure: No - Endocrine/Metabolic Hx Diabetes Mellitus Type 1: No Hx Diabetes Mellitus Type 2: No Hx Hypothyroidism: No - Hematological/Oncological Hx Blood Disorders: Yes Hx AIDS: No Hx Anemia: Yes (blood transfusion) - Integumentary Hx Dermatological Disorder: No Hx Basal Cell Carcinoma: No Hx Eczema: No Hx Melanoma: No Hx Psoriasis: No Hx Squamous Cell Carcinoma: No - Musculoskeletal/Rheumatological Hx Musculoskeletal Disorders: No Hx Falls: No - Gastrointestinal Hx Gastrointestinal Disorders: Yes Hx Colostomy: No Hx Crohn's Disease: No Hx Diverticulitis: Yes Hx Gall Bladder Disease: No Hx Gastroesophageal Reflux: Yes (history of Gi bleed) Hx Ileostomy: No Hx Liver Failure: No Hx Pancreatitis: No HX Swallowing Problems: No - Genitourinary/Gynecological Hx Genitourinary Disorders: No Hx Hematuria: No Hx Incontinence: No Hx Sexually Transmitted Diseases: No Hx Urinary Tract Infection: No - Psychiatric Hx Psychophysiologic Disorder: No Hx Anxiety: No Hx Bipolar Disorder: No Hx Depression: No Hx Emotional Abuse: No Hx Hallucinations: No Hx Panic Disorder: No Hx Post Traumatic Stress Disorder: No Hx Psychosis: No Hx Physical Abuse: No Hx Schizophrenia: No Hx Sexual Abuse: No Hx Substance Use: No - Past Surgical History Past Surgical History: No Previous - Surgical History Hx Joint Replacement: Yes Hx Orthopedic Surgery: Yes Hx Valve Replacement: Yes (Aortic valve 03/2017) Other/Comment: hip surgery implant left - Anesthesia Hx Anesthesia: Yes Hx Anesthesia Reactions: No Hx Malignant Hyperthermia: No - Suicidal Assessment Feels Threatened In Home Enviroment: No <ANNA TEJEDA - Last Filed: 06/17/17 13:44> Family/Social History - Physician Review Nursing Documentation Reviewed: Yes Smoking Status: Former Smoker Hx Alcohol Use: No Hx Substance Use: No Hx Substance Use Treatment: No <ANNA TEJEDA - Last Filed: 06/17/17 13:44> Family/Social History: Unknown Family HX <Dominik Zendejas - Last Filed: 06/17/17 16:19> Allergies/Home Meds <ANNA TEJEDA - Last Filed: 06/17/17 13:44> <Dominik Zendejas - Last Filed: 06/17/17 16:19> Allergies/Adverse Reactions: Allergies No Known Allergies Allergy (Verified 06/17/17 08:44) Home Medications: Home Meds Medication Instructions Recorded Confirmed Atorvastatin [Lipitor] 40 mg PO DAILY 05/11/17 06/17/17 Aspirin [Aspirin Chewable] 81 mg PO DAILY 06/17/17 06/17/17 Cyanocobalamin [Vitamin B12] 250 mcg PO DAILY 06/17/17 06/17/17 Ferrous Sulfate [Feosol] 325 mg PO DAILY 06/17/17 06/17/17 Multivitamin [Multivitamins] 1 tab PO DAILY 06/17/17 06/17/17 Review of Systems - Physician Review All systems were reviewed & negative as marked: Yes - Review of Systems Systems not reviewed;Unavailable: Acuity of Condition Constitutional: absent: Fatigue, Weight Change, Fevers Eyes: absent: Vision Changes, Photophobia ENT: absent: Hearing Changes Respiratory: Normal. absent: SOB, Cough Cardiovascular: Normal. absent: Chest Pain, Palpitations Gastrointestinal: Normal. absent: Abdominal Pain, Nausea, Vomiting Skin: Normal Neurological: absent: Headache, Focal Weakness Endocrine: Normal Hemo/Lymphatic: Normal Psychiatric: Normal <ANNA TEJEDA - Last Filed: 06/17/17 13:44> Physical Exam Vital Signs Reviewed: Yes Temperature: Afebrile Blood Pressure: Hypertensive Pulse: Regular Respiratory Rate: Normal Appearance: Positive for: Well-Appearing, Non-Toxic, Comfortable Pain Distress: None Mental Status: Positive for: Alert and Oriented X 3 Finger Stick Blood Glucose: 105 - Systems Exam Head: Present: Atraumatic, Normocephalic Extroacular Muscles: Present: EOMI Conjunctiva: Present: Normal Mouth: Present: Moist Mucous Membranes Respiratory/Chest: Present: Clear to Auscultation, Good Air Exchange Cardiovascular: Present: Regular Rate and Rhythm, Normal S1, S2 Abdomen: Present: Tenderness, Normal Bowel Sounds Neurological: Present: CN II-XII Intact, Speech Normal Skin: Present: Warm, Normal Color Psychiatric: Present: Alert, Oriented x 3 <ANNA TEJEDA - Last Filed: 06/17/17 13:44> - Systems Exam Neurological: Present: GCS=15, Motor Func Grossly Intact, Normal Sensory Function, Normal Cerebellar Funct, Norm Deep Tendon Reflexes, Gait Normal, Memory Normal <Dominik Zendejas - Last Filed: 06/17/17 16:19> Vital Signs Temp Pulse Resp BP Pulse Ox 06/17/17 12:11 94 H 18 165/86 H 98 06/17/17 11:26 87 18 170/76 H 97 06/17/17 11:11 97.9 F 89 16 146/71 96 06/17/17 10:38 84 18 146/71 97 06/17/17 09:50 91 H 18 116/84 98 06/17/17 08:58 97.9 F 90 18 174/83 H 97 Medical Decision Making - Lab Interpretations I have reviewed the lab results: Yes Interpretation: No clinic. lab abnormalty - RAD Interpretation Computer Systems Security Administrator: Radiologist - EKG Interpretation Interpreted by ED Physician: Yes Type: 12 lead EKG <ANNA TEJEDA - Last Filed: 06/17/17 13:44> <Domniik Zendejas - Last Filed: 06/17/17 16:19> ED Course and Treatment: Assessment 87 year old female with dizziness and numbness and tingling in right digits for 1.5 days Plan - CT head w/o contrast; no new abnormalities, negative for intracranial hemorrhage - CXR; no current active disease - EKG - Cardiac ISO - Finger stick; 102 - Neurocheck - Discussed with Dr. Florian, is in agreement with admitting patient for further evaluation and vital monitoring 06/17/17 10:27 (ANNA TEJEDA) In agreement with resident note, which includes further HPI details. Patient was seen and evaluated with resident, came up with plan and treatment together. Patient is an 87 yo female past medical history of cva, reported brief episode of numbness and weakness to left arm 2 days ago which resolved, since then has had episodes of headaches, dizziness, and nausea. Current exam reveals no abdominal pain, NO focal neuro deficits noted. Median/radial/ulnar motor and sensory function intact. Full range of motion of knee, ankle, shoulder and hand joints. No edema or pulse deficits noted. Initial CT head unremarkable. ? tia symptoms. Not tpa candidate as symptoms resolved and currently neuro intact, sxs several days ago. Will admit for monitoring, serial exams, I discussed case with PMD Dr. Florian. Patient has taken aspirin. (Dominik Zendejas) - Lab Interpretations Lab Results: 06/17/17 09:50 06/17/17 09:50 Lab Results 06/17/17 09:50: Blood Type A POSITIVE, Antibody Screen Negative, BBK History Checked Patient has bt 06/17/17 09:50: PT 10.7, INR 0.99, APTT 24.7 06/17/17 09:50: Sodium 139, Potassium 4.0, Chloride 101, Carbon Dioxide 28, Anion Gap 14, BUN 14, Creatinine 0.8, Est GFR ( Amer) > 60, Est GFR (Non- Af Amer) > 60, Random Glucose 93, Calcium 9.6, Total Bilirubin 1.0, AST 39 H, ALT 24, Alkaline Phosphatase 91, Lactate Dehydrogenase 889 H, Total Creatine Kinase 64, Troponin I < 0.01, Total Protein 7.7, Albumin 4.6, Globulin 3.1, Albumin/Globulin Ratio 1.5, Triglycerides 154, Cholesterol 196, LDL Cholesterol Direct 108, HDL Cholesterol 53 06/17/17 09:50: WBC 9.1 D, RBC 4.27, Hgb 13.4, Hct 39.3, MCV 92.0, MCH 31.4, MCHC 34.1, RDW 12.7, Plt Count 253, MPV 11.1 H, Gran % 78.4 H, Lymph % (Auto) 16.3 L, [place] % (Auto) 4.8, Eos % (Auto) 0.4 L, Baso % (Auto) 0.1, Gran # 7.16 H , Lymph # 1.5, [place] # 0.4, Eos # 0.0, Baso # 0.01 - RAD Interpretation Radiology Orders: 06/17/17 09:15 CHEST ONE VIEW [RAD] Stat 06/17/17 09:17 HEAD W/O CONTRAST [CT] Stat - EKG Interpretation EKG Interpretation (Text): EKG at 08:52 normal sinus rhythm with fusion complexes (Dominik Zendejas) NIHSS Scale ([place]) Time Performed: 09:45 - How Severe is the Stoke Baseline Level of Consciousness: 0=Alert LOC to Questions: 0=Both comments correct LOC to commands: 0=Obeys both correctly Best Gaze: 0=Normal Visual: 0=No visual loss Facial: 0=Normal Motor Arm - Left: 0=No drift Motor Arm - Right: 0=No drift Motor Leg - Left: 0=No drift Motor Leg - Right: 0=No drift Limb Ataxia: 0=Absent Sensory: 0=Normal Best Language: 0=No aphasia Dysarthia: 0=Normal articulation Extinction & Inattention (Neglect): 0=Normal, no object Score: 0 Risk Level: No Stroke Risk <Dominik Zendejas - Last Filed: 06/17/17 16:19> <ANNA TEJEDA - Last Filed: 06/17/17 13:44> - Scribe Statement The provider has reviewed the documentation as recorded by the Scribe <Dominik Zendejas - Last Filed: 06/17/17 16:19> - Scribe Statement Tana Brooks Provider Scribe Attestation: All medical record entries made by the Scribe were at my direction and personally dictated by me. I have reviewed the chart and agree that the record accurately reflects my personal performance of the history, physical exam, medical decision making, and the department course for this patient. I have also personally directed, reviewed, and agree with the discharge instructions and disposition. (Dominik Zendejas) Disposition/Present on Arrival - Present on Arrival Any Indicators Present on Arrival: No History of DVT/PE: No History of Uncontrolled Diabetes: No Urinary Catheter: No History of Decub. Ulcer: No History Surgical Site Infection Following: None - Disposition Have Diagnosis and Disposition been Completed?: Yes Disposition Time: 14:56 Patient Plan: Admission <ANNA TEJEDA - Last Filed: 06/17/17 13:44> - Disposition Have Diagnosis and Disposition been Completed?: Yes <Dominik Zendejas - Last Filed: 06/17/17 16:19> - Disposition Diagnosis: Dizziness, TIA (transient ischemic attack) Disposition: HOSPITALIZED Patient Problems: Current Active Problems Problem Status Onset Dizziness Acute TIA (transient ischemic attack) Acute Condition: FAIR
[2017-06-17 10:27] LABS: ALB/GLOB RATIO 1.5 (1.1-1.8); ALKALINE PHOSPHATASE 91 U/L (38-126); ALT/SGPT 24 U/L (7-56); AST/SGOT 39 U/L (14-36); BLOOD UREA NITROGEN 14 mg/dL (7-21); CALCIUM 9.6 mg/dL (8.4-10.5); CARBON DIOXIDE 28 mmol/L (21-33); CHLORIDE 101 mmol/L (98-107); CHOLESTEROL 196 mg/dL (130-200); GFR AFRICAN-AMERICAN > 60; GLUCOSE,RANDOM 93 mg/dL (70-110); SODIUM 139 mmol/L (132-148); TOTAL PROTEIN 7.7 g/dL (5.8-8.3)
[2017-06-17 10:29] LABS: INR 0.99 (0.93-1.08); PARTIAL THROMBOPLASTIN TIME 24.7 Seconds (23.7-30.8)
[2017-06-17 10:39] LABS: TROPONIN I < 0.01 ng/mL
--- NOTE | 2017-06-17 10:44 | CT ---
PROCEDURE: CT HEAD WITHOUT CONTRAST. HISTORY: dizziness COMPARISON: None available. TECHNIQUE: Axial computed tomography images were obtained through the head/brain without intravenous contrast. Radiation dose: Total exam DLP = 677.45 mGy-cm. This CT exam was performed using one or more of the following dose reduction techniques: Automated exposure control, adjustment of the mA and/or kV according to patient size, and/or use of iterative reconstruction technique. FINDINGS: HEMORRHAGE: No intracranial hemorrhage. BRAIN: No mass effect or edema. Old left occipital infarct with cystic encephalomalacia. No evidence of acute infarct. Mild diffuse atrophy. Mild periventricular white matter with patchy deep white matter lucency consistent with microvascular ischemic change. VENTRICLES: Unremarkable. No hydrocephalus. CALVARIUM: Unremarkable. PARANASAL SINUSES: Unremarkable as visualized. No significant inflammatory changes. MASTOID AIR CELLS: Unremarkable as visualized. No inflammatory changes. OTHER FINDINGS: None. IMPRESSION: No intracranial mass, hemorrhage or evidence of acute infarct. Old left occipital infarct. Age-appropriate involutional change.
--- NOTE | 2017-06-17 10:56 | RAD ---
PROCEDURE: CHEST RADIOGRAPH, 1 VIEW HISTORY: dizziness, possible CVA COMPARISON: 05/11/2017 FINDINGS: LUNGS: Clear. PLEURA: No pneumothorax or pleural fluid seen. CARDIOVASCULAR: Normal. OSSEOUS STRUCTURES: No significant abnormalities. VISUALIZED UPPER ABDOMEN: Normal. OTHER FINDINGS: None. IMPRESSION: No active disease.
[2017-06-17 16:24] VITALS: BMI 27.8
[2017-06-17] MEDS ORDERED: Pneumococcal 23-Valent Vaccine IM ONE (16:24)
--- NOTE | 2017-06-17 17:37 | MRI ---
PROCEDURE: MRI BRAIN WITH AND WITHOUT CONTRAST HISTORY: TIA COMPARISON: Noncontrast head CT performed the same day TECHNIQUE: Multiplanar, multisequence MR images of the brain were obtained with and without intravenous contrast enhancement. 15 cc gadolinium was injected intravenously FINDINGS: HEMORRHAGE: None DWI: No evidence of an acute or early subacute infarction. BRAIN PARENCHYMA: There is a large old infarction in the left occipital lobe. There are mild chronic microangiopathic changes. There is no mass, mass effect or abnormal extra-axial fluid collection. The midline sagittal structures are normal. ENHANCEMENT: No abnormal intracranial enhancement. There is a developmental venous anomaly in the right occipital lobe. VENTRICLES: There is mild age-related global parenchymal volume loss and proportionate enlargement of the ventricles and cortical sulci. CRANIUM: There is normal bone marrow signal pattern. ORBITS: Grossly unremarkable. PARANASAL SINUSES/MASTOIDS: Clear VASCULAR SYSTEM: There are normal signal voids in the larger intracranial arteries. OTHER FINDINGS: None . IMPRESSION: 1. No acute intracranial abnormality. Specifically, no evidence of acute infarction. 2. Old left BREAD BAKER territory infarction involving the occipital lobe. 3. Mild chronic microangiopathic changes and mild age-related global parenchymal volume loss. 4. 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
--- NOTE | 2017-06-17 23:27 | CARD ---
APPROVED REPORT EKG Measurement Heart [id number] <Conclusion> Sinus rhythm with fusion complexes Otherwise normal ECG
--- NOTE | 2017-06-18 00:37 | CON ---
NEUROLOGY CONSULTATION DATE: 06/17/2017 CHIEF COMPLAINT: Lightheadedness. HISTORY OF PRESENT ILLNESS: This is a 87-year-old woman with past medical history of diverticulosis, hypertension, dyslipidemia, history of left occipital CVA with no residual issues, history of aortic valve replacement, who came to the hospital with episodic dizziness in terms of lightheadedness without spinning sensation of the room, she felt her right finger and middle fingers were tingling and numb, but no focal paresthesias or weakness of the extremities. No dysarthria, no change in sense of vision, taste or smell at this time. She has had slightly elevated systolic blood pressures from her baseline. Currently she is on aspirin 81 mg and Lipitor 40 mg for stroke prevention. Currently her blood pressure is 176/84. She underwent an MRI of the brain which showed no acute intracranial abnormalities, no evidence of any acute infarction, there is an old left LOG CHAIN WORKER territory infarct in occipital lobe and chronic ischemic changes. PAST MEDICAL HISTORY: History of left occipital lobe infarct, history of hypertension, aortic valve replacement, dyslipidemia. REVIEW OF SYSTEMS: A 14-point review of systems is negative except as per the HPI. MEDICATIONS: Reviewed by nurse reconciliation sheet. ALLERGIES: NO KNOWN DRUG ALLERGIES. SOCIAL HISTORY: No illicit drug use, smoking, or EtOH abuse. PHYSICAL EXAMINATION GENERAL: The patient is sitting up in bed, in no acute distress. VITAL SIGNS: Temperature is 97.7, pulse rate of 94, blood pressure 165/89, respiratory rate 20 and oxygen saturation 96% via room air. HEENT: Atraumatic and normocephalic. PERRLA. Extraocular muscles intact. NECK: Supple. No JVD. No adenopathy noted. LUNGS: Clear to auscultation. No adventitious sounds. CARDIOPULMONARY: S1 and S2, normal rate and rhythm. No murmurs, rubs, or gallops. ABDOMEN: Soft, nontender and nondistended. Bowel sounds are present. EXTREMITIES: No clubbing. No cyanosis. Peripheral pulses 2+ felt bilaterally. NEUROLOGIC: The patient is alert and oriented to person, place, month and year. Speech is fluent without any errors. Cranial nerves II through XII intact. Motor exam; moves all extremities equally. Toes downgoing bilaterally. Sensory exam; light touch, pinprick, proprioception, vibration is intact. DTRs are 2+ throughout. Co-ordination of bpxbmh-[id number]-acal intact. Gait is deferred for now. LABORATORY DATA: Sodium is 139, potassium 4.0, chloride of 101, carbon dioxide of 28, BUN of 14, creatinine 0.8 and random glucose 93. A1c of 5.5. ASSESSMENT: This is an 87-year-old woman with a history of hypertension, dyslipidemia, history of left occipital lobe infarct without residual deficits, history of aortic valve replacement, came with dizziness, and questionable right hand finger numbness and tingling. She had elevated systolic blood pressures from her baseline. MRI of the brain showed no acute intracranial abnormality just old left occipital lobe infarct. At this time her dizziness and tingling of the finger tips is likely secondary to mild hypertensive urgency, causing a bump of elevated systolic blood pressures. At this time, recommend: 1. Aspirin 81 mg and Lipitor 40 mg for stroke prevention. 2. Keep the systolic blood pressure 120-130. 3. Monitor heart for any arrhythmias. 4. Continue current present medical management. She can followup with me as an outpatient. She is neurologically stable. Julian Felix MD
[2017-06-18 08:03] VITALS: RESP 20; TEMP 98.4; O2SAT 97
[2017-06-18 08:08] VITALS: BP 135/75
[2017-06-18] MEDS ORDERED: Multivitamin Therapeutic Tab PO SCH (10:00)
[2017-06-18] MEDS ORDERED: Verapamil 180 mg ER Tab PO SCH (10:00)
[2017-06-18] MEDS ORDERED: Pantoprazole 40 mg EC Tab PO SCH (10:00)
[2017-06-18 11:39] VITALS: PULSE 108
--- NOTE | 2017-06-19 00:03 | PN ---
DATE: SUBJECTIVE: An 87-year-old white female admitted to hospital on 06/17/2017 with possible TIA versus CVA. The patient had an MRI last night of the brain, which did not show any acute disease. Head CT was negative. Chest x-ray was clear. Consultation was done with Dr. Felix, who agrees that the patient most likely does not have a TIA. PHYSICAL EXAMINATION: VITAL SIGNS: Stable. GENERAL: He is awake, alert, and oriented x3. NEUROLOGIC: Grossly intact. She does have some residual dysarthria from her previous CVA. No evidence of a new CVA. At this point, the patient will be instructed to go back on aspirin and to continue her antihypertensive and cardiac medications and will be followed up as an outpatient. Philip Florian MD
--- NOTE | 2017-06-19 02:40 | HP ---
HISTORY OF PRESENT ILLNESS: An 87-year-old white female with history of aortic valve replacement, coronary artery bypass graft, history of CVA, recently GI bleed. Currently, the patient admitted to the hospital after having some dizziness, some lightheadedness, some strange feeling in her head and also some cramping in her left hand. The patient came to the emergency room because she felt like she was having recurrent stroke. She had a CT of the head and MRI of the brain, which showed no acute changes. Chest x-ray was normal. Laboratory data was unremarkable. The patient was kept on observation for possible TIA. LABORATORY DATA: Unremarkable. Hemoglobin 13.4. Normal BUN and creatinine. Negative troponin. Slightly elevated LDH of 889. PHYSICAL EXAMINATION: VITAL SIGNS: Stable. GENERAL: The patient is a well-developed, well-nourished white female in no apparent distress. She has a mild dysarthria secondary to her stroke. CVA, which is unchanged. There is no change in strength in the upper and lower extremities. There is normal hand office services assistant bilaterally. Reflexes are 2+ brisk bilaterally. Babinski's are downgoing bilaterally. The patient is alert and oriented x3. NEUROLOGIC: Grossly intact. CHEST: Clear to auscultation and percussion. HEART: Reveals sinus rhythm. No S3 or murmurs. ABDOMEN: Benign. EXTREMITIES: Without cyanosis, clubbing, or edema. IMPRESSION: An 87-year-old white female presenting with some facial paresthesia, some cramping of the left hand and some lightheadedness and dizziness, rule out transient ischemic attack versus recurrent stroke. Philip Florian MD
== END 2017-06-18 14:20 | disposition home or self-care (01) ==
LOC: ED 08:38 → ERH 12:01 → 3RNO 14:11
PROVIDERS: ADMIT Internal Medicine; ATTEND Internal Medicine
DX: I16.0 Hypertensive urgency (principal); E78.5 Hyperlipidemia, unspecified; I69.322 Dysarthria following cerebral infarction; Z95.2 Presence of prosthetic heart valve; Z79.82 Long term (current) use of aspirin
CPT/HCPCS: 70450; 70553; 71010; 80053; 80061; 82550; 83036; 83615; 84484; 85025; 85610; 85730; 86850; 86900; 93005; 99285; G0378

== ENCOUNTER 2017-08-29 16:40 | Inpatient (IN) | payer MEDICARE ==
--- NOTE | 2017-08-29 16:52 | ED PDOC ---
Arrival/HPI - General Chief Complaint: Altered Mental Status Time Seen by Provider: 08/29/17 16:43 - History of Present Illness Narrative History of Present Illness (Text): 87 y/o F c PMHx diverticulosis, HTN, dyslipidemia, CVA, aortic valve replacement BIBEMS intubated. Patient was found at home, lying on floor, head leaned against wall/bed, unresponsive. Son called EMS. Patient was intubated for airway protection and brought to ED. No obvious trauma, blood, vomit found at home. EMS reports patient with no corneal reflex but did withdraw to pain. Intubated with rocuronium. Patient spoke with grandson on phone at 10:23am and EMS was dispatched at 4pm. Last time well 10:23am. Further HPI/ROS unobtainable due to patient clinical condition. Past Medical History - Infectious Disease Hx of Infectious Diseases: None - Tetanus Immunization Tetanus Immunization: Unknown - Cardiac Hx Cardiac Disorders: Yes (MR, aortic sclerosis s/p AVR (prosthetic hugo)) Hx Heart Murmur: Yes Hx Hypertension: Yes Other/Comment: mitral regurgitation aortic valve replacement 03/2017, rectal bleeding 1 month later off plavix just on baby asa now - Pulmonary Hx Respiratory Disorders: No - Neurological Hx Neurological Disorder: Yes HX Cerebrovascular Accident: Yes (lost periph vision 2/3 days 01/02/2017) Hx Transient Ischemic Attacks (TIA): Yes (x2 per EMS) - HEENT Hx HEENT Disorder: No - Renal Hx Renal Disorder: No - Endocrine/Metabolic Hx Endocrine Disorders: No - Hematological/Oncological Hx Blood Disorders: Yes Hx Anemia: Yes (blood transfusion) Other/Comment: had 8 units of blood due to diverticulitis 3 or 4 yrs ago as per pt - Integumentary Hx Dermatological Disorder: No - Musculoskeletal/Rheumatological Hx Falls: Yes (oct 2014) - Gastrointestinal Hx Gastrointestinal Disorders: Yes Hx Crohn's Disease: (pt denies) Hx Diverticulitis: Yes Hx Gastroesophageal Reflux: Yes (history of Gi bleed) - Genitourinary/Gynecological Hx Genitourinary Disorders: No - Psychiatric Hx Psychophysiologic Disorder: No Hx Substance Use: No - Past Surgical History Past Surgical History: No Previous - Surgical History Hx Joint Replacement: Yes (left hip post fall) Hx Orthopedic Surgery: Yes Hx Valve Replacement: Yes (Aortic valve 03/2017) - Anesthesia Hx Anesthesia: Yes Hx Anesthesia Reactions: No Hx Malignant Hyperthermia: No - Suicidal Assessment Feels Threatened In Home Enviroment: No Family/Social History Family/Social History: No Known Family HX Smoking Status: Never Smoked Hx Alcohol Use: No Hx Substance Use: No Hx Substance Use Treatment: No Allergies/Home Meds Allergies/Adverse Reactions: Allergies Unobtainable Allergy (Verified 08/29/17 16:47) Home Medications: Home Meds Medication Instructions Recorded Confirmed Unobtainable 08/29/17 08/29/17 Review of Systems - Review of Systems Systems not reviewed;Unavailable: Intubated Physical Exam - Physical Exam Narrative Physical Exam (Text): Constitutional: Intubated, unresponsive. Head: Normocephalic. Atraumatic. Eyes: Pupils not reactive. No corneal reflex. ENT: Intubated. Neck: Supple. Cardiovascular: Borderline tachycardia. Chest: No deformity. Respiratory: Equal breath sounds with BVM. GI: Soft. Back: No ulcer. Musculoskeletal: No swelling of extremities. Skin: No rash. No abrasion. No ecchymosis. Neurologic: Intubated, unresponsive. Vital Signs Temp Pulse Resp BP Pulse Ox 08/29/17 18:46 93 H 15 130/72 97 08/29/17 18:24 104 H 196/96 H 08/29/17 18:07 100 H 08/29/17 17:47 92 H 14 190/101 H 98 08/29/17 16:41 95.6 F L 109 H 15 132/90 98 Medical Decision Making ED Course and Treatment: 87 y/o F apparently in normal state of health just over 6 hours ago, now unresponsive, intubated, and with normal pulse and blood pressure. Found to be hypothermic. Son arrived in ED and states she also appeared to be laboring to breathe when he found her. Will send for CT Head. EKG NSR 97 bpm, narrow QRS, no ST elevations, normal axis. Fingerstick 200+. CXR no consolidation. ETT in satisfactory position. 08/29/17 17:27 CT HEAD WITHOUT CONTRAST Creator : Tez Sánchez FINDINGS: HEMORRHAGE: There is massive right-sided intraparenchymal hematoma. This is multifocal. There is right subarachnoid hemorrhage over the lateral convexity. There is acute on chronic right frontal convexity subdural hemorrhage measuring up to 6 mm in width. There is intraventricular hemorrhage. Blood is seen in both lateral ventricles as well as in the 3rd and 4th ventricles. . BRAIN: No intracranial mass. VENTRICLES: Marked dilatation of the atrium and temporal horn of the left lateral ventricle suggestive of entrapment. There is shift of the midline structures towards the left by approximately 17 mm. There is evidence of downward herniation with effacement of the perimesencephalic cisterns. No gross cerebellar tonsillar herniation noted, however. CALVARIUM: Unremarkable. PARANASAL SINUSES: Unremarkable as visualized. No significant inflammatory changes. MASTOID AIR CELLS: Unremarkable as visualized. No inflammatory changes. IMPRESSION: Extensive right-sided intraparenchymal hemorrhage as well as subarachnoid and subdural hemorrhage. The subdural hemorrhages acute on chronic. There is extensive midline shift towards the left. There is possible entrapment of the atrium and temporal horn of the left lateral ventricle. Intraventricular hemorrhage. Evidence of downward herniation. The findings were discussed by telephone with Dr. Jarrell at 5:34 p.m. on 08/29/2017. 08/29/17 18:48 Discussed case with Neurosurgery at [facility], will not accept patient. Not appropriate candidate for surgery, unstable, may en route. Discussed case with Neurosurgery retention manager Dr. Wright who states no intervention to be done , patient's bleed too extensive for recovery. Discussed with family, surgery will not be done, patient will worsen and eventually . Palliative care to be called. Patient accepted to hospitalist service by Dr. Keys. ICU accepts patient. - Lab Interpretations Lab Results: 08/29/17 17:00 08/29/17 17:00 Lab Results 08/29/17 17:30: Blood Type Pending, Antibody Screen Pending, BBK History Checked Patient has bt 08/29/17 17:00: Sodium 139, Potassium 2.7 L* D, Chloride 97 L, Carbon Dioxide 28 , Anion Gap 17, BUN 18, Creatinine 0.8, Est GFR ( Amer) > 60, Est GFR ( Non-Af Amer) > 60, Random Glucose 214 H, Calcium 10.0, Total Bilirubin 1.2, AST 56 H D, ALT 47, Alkaline Phosphatase 120, Total Creatine Kinase 173, Troponin I 0.09 D, Total Protein 7.9, Albumin 4.6, Globulin 3.3, Albumin/Globulin Ratio 1.4 08/29/17 17:00: PT 11.4, INR 1.04, APTT 25.1 08/29/17 17:00: WBC 23.1 H D, RBC 4.24, Hgb 13.2, Hct 38.7, MCV 91.3, MCH 31.1, MCHC 34.1, RDW 13.0, Plt Count 264, MPV 10.4, Gran % 87.9 H, Lymph % (Auto) 5.2 L, [place] % (Auto) 6.9 H, Eos % (Auto) 0.0 L, Baso % (Auto) 0.0, Gran # 20.25 H, Lymph # 1.2, [place] # 1.6 H, Eos # 0.0, Baso # 0.01 08/29/17 16:50: Urine Color Light yellow, Urine Appearance Clear, Urine pH 6.0, Ur Specific [place] 1.020, Urine Protein 100 H, Urine Glucose (UA) 100 H, Urine Ketones Negative, Urine Blood Trace-lysed H, Urine Nitrate Negative, Urine Bilirubin Negative, Urine Urobilinogen 0.2, Ur Leukocyte Esterase Negative, Urine RBC 0 - 2, Urine WBC Negative, Ur Epithelial Cells None, Urine Bacteria Many - RAD Interpretation Radiology Orders: 08/29/17 16:46 CHEST PORTABLE [RAD] Stat 08/29/17 16:47 HEAD W/O CONTRAST [CT] Stat - Medication Orders Current Medication Orders: Nicardipine HCl (Cardene Iv Premix) 20 mg in 200 mls @ 50 mls/hr IV .Q4H PRN; Protocol; 5 MG/HR PRN Reason: TITRATE PER MD ORDER Last Admin: 08/29/17 18:24 Dose: 75 mls/hr eMAR Start Stop Document 08/29/17 18:24 SRE (Rec: 08/29/17 18:25 SRE [id number]) Intravenous Solution Start Date 08/29/17 Start Time 18:10 MAR Pulse and Blood Pressure Document 08/29/17 18:24 SRE (Rec: 08/29/17 18:25 SRE [id number]) Pulse Pulse Rate (60-90) 104 Blood Pressure Blood Pressure (100/60-150/90) 196/96 Potassium Chloride (Potassium Chloride 20 Meq/100 Ml) 20 meq in 100 mls @ 50 mls/hr IVPB Q2H STACY Stop: 08/29/17 21:59 Last Admin: 08/29/17 18:10 Dose: 50 mls/hr eMAR Start Stop Document 08/29/17 18:10 SRE (Rec: 08/29/17 18:10 SRE [id number]) Intravenous Solution Start Date 08/29/17 Start Time 18:10 End Date 08/29/17 End time 20:00 Total Infusion Time 110 NIHSS Scale ([place]) Time Performed: 16:50 - How Severe is the Stoke Baseline Level of Consciousness: 3=Unresponsive LOC to Questions: 2=Neither correct LOC to commands: 2=Neither correct Best Gaze: 0=Normal Visual: 0=No visual loss Facial: 0=Normal Motor Arm - Left: 4=No movement Motor Arm - Right: 4=No movement Motor Leg - Left: 4=No movement Motor Leg - Right: 4=No movement Limb Ataxia: 0=Absent Sensory: 0=Normal Best Language: 3=Mute Dysarthia: 0=Normal articulation Extinction & Inattention (Neglect): 0=Normal, no object Score: 26 Risk Level: Severe Stroke Risk - Notes Notes: Patient completely unresponsive. Also was given rocuronium. rTPA Inclusion/Exclusion - Refusal of Treatment Patient Refused Treatment: No - Inclusion Criteria for Altepase Patient is 18 years or Older: Yes The Clinical Diagnosis of Ischemic Stroke That is Causing a Potentially Disabling Neurological Deficit: No Time of Onset is Well Established to be Less Than 270 Minute Before Treatment Would Begin: No Risk/Benefit Discussed With Patient/Family Member Present: Yes - Exclusion Criteria for Altepase History of: Intracranial hemorrhage Active Internal Bleeding: Yes Disposition/Present on Arrival - Present on Arrival Any Indicators Present on Arrival: No History of DVT/PE: No History of Uncontrolled Diabetes: No Urinary Catheter: No History of Decub. Ulcer: No History Surgical Site Infection Following: None - Disposition Have Diagnosis and Disposition been Completed?: Yes Diagnosis: Hemorrhagic stroke Disposition: HOSPITALIZED Disposition Time: 18:52 Patient Plan: Admission, ICU Condition: CRITICAL Referrals: Philip Florian MD [Primary Care Provider] - Follow up with primary Forms: [employer] (Italian)
[2017-08-29 17:23] LABS: URINE BILIRUBIN NEGATIVE (NEGATIVE); URINE BLOOD TRACE-LYSED (NEGATIVE); URINE GLUCOSE (UA) 100 mg/dL (NEGATIVE); URINE KETONE NEGATIVE (NEGATIVE); URINE LEUKOCYTE ESTERASE NEGATIVE Leu/uL (NEGATIVE); URINE PROTEIN 100 mg/dL (<30 mg/dL); URINE UROBILINOGEN 0.2 E.U./dL (<1 E.U./dL)
[2017-08-29 17:25] LABS: URINE APPEARANCE CLEAR (CLEAR); URINE COLOR LIGHT YELLOW (YELLOW)
[2017-08-29 17:26] LABS: BASO # 0.01 K/mm3 (0.0-2.0); GRAN # 20.25 (1.4-6.5); GRAN % 87.9 % (50.0-68.0); HEMATOCRIT 38.7 % (36.0-48.0); LYMPH # 1.2 (1.2-3.4); LYMPH % 5.2 % (22.0-35.0); MEAN CELL VOLUME 91.3 fl (80.0-105.0); MEAN CORPUSCULAR HEMOGLOBIN 31.1 pg (25.0-35.0); MEAN CORPUSCULAR HGB CONC 34.1 g/dl (31.0-37.0); MEAN PLATELET VOLUME 10.4 fl (7.0-11.0); MONO # 1.6 (0.1-0.6); MONO % 6.9 % (1.0-6.0); WHITE BLOOD COUNT 23.1 10^3/ul (4.5-11.0)
[2017-08-29 17:35] LABS: INR 1.04 (0.93-1.08); PARTIAL THROMBOPLASTIN TIME 25.1 Seconds (25.1-36.5)
[2017-08-29 17:37] LABS: ALB/GLOB RATIO 1.4 (1.1-1.8); ALKALINE PHOSPHATASE 120 U/L (38-126); ALT/SGPT 47 U/L (7-56); AST/SGOT 56 U/L (14-36); BILIRUBIN,TOTAL 1.2 mg/dL (0.2-1.3); BLOOD UREA NITROGEN 18 mg/dL (7-21); CARBON DIOXIDE 28 mmol/L (21-33); CHLORIDE 97 mmol/L (98-107); GFR AFRICAN-AMERICAN > 60; GLUCOSE,RANDOM 214 mg/dL (70-110); SODIUM 139 mmol/L (132-148); TOTAL PROTEIN 7.9 g/dL (5.8-8.3)
--- NOTE | 2017-08-29 17:37 | CT ---
PROCEDURE: CT HEAD WITHOUT CONTRAST. HISTORY: unresponsive COMPARISON: 06/17/2017 TECHNIQUE: Axial computed tomography images were obtained through the head/brain without intravenous contrast. Radiation dose: Total exam DLP = 843.77 mGy-cm. This CT exam was performed using one or more of the following dose reduction techniques: Automated exposure control, adjustment of the mA and/or kV according to patient size, and/or use of iterative reconstruction technique. FINDINGS: HEMORRHAGE: There is massive right-sided intraparenchymal hematoma. This is multifocal. There is right subarachnoid hemorrhage over the lateral convexity. There is acute on chronic right frontal convexity subdural hemorrhage measuring up to 6 mm in width. There is intraventricular hemorrhage. Blood is seen in both lateral ventricles as well as in the 3rd and 4th ventricles. . BRAIN: No intracranial mass. VENTRICLES: Marked dilatation of the atrium and temporal horn of the left lateral ventricle suggestive of entrapment. There is shift of the midline structures towards the left by approximately 17 mm. There is evidence of downward herniation with effacement of the perimesencephalic cisterns. No gross cerebellar tonsillar herniation noted, however. CALVARIUM: Unremarkable. PARANASAL SINUSES: Unremarkable as visualized. No significant inflammatory changes. MASTOID AIR CELLS: Unremarkable as visualized. No inflammatory changes. OTHER FINDINGS: None. IMPRESSION: Extensive right-sided intraparenchymal hemorrhage as well as subarachnoid and subdural hemorrhage. The subdural hemorrhages acute on chronic. There is extensive midline shift towards the left. There is possible entrapment of the atrium and temporal horn of the left lateral ventricle. Intraventricular hemorrhage. Evidence of downward herniation. The findings were discussed by telephone with Dr. Jarrell at 5:34 p.m. on 08/29/2017.
[2017-08-29 17:40] LABS: TROPONIN I 0.09 ng/mL
[2017-08-29 17:52] LABS: POTASSIUM 2.7 mmol/L (3.6-5.0)
--- NOTE | 2017-08-29 18:04 | RAD ---
HISTORY: unresponsive, intubated COMPARISON: Comparison is made to 06/17/2017 FINDINGS: LUNGS: Status post intubation. Bibasilar opacities are seen larger on the left may represent atelectasis. Otherwise no interval change in the lungs. PLEURA: No significant pleural effusion identified, no pneumothorax apparent. CARDIOVASCULAR: Normal. OSSEOUS STRUCTURES: No significant abnormalities. VISUALIZED UPPER ABDOMEN: Normal. OTHER FINDINGS: None. IMPRESSION: Appropriate position of the ETT. Bibasilar opacities likely atelectasis.
[2017-08-29] MEDS: Nicardipine 20 MG/200 ML 20 MG/200 ML BAG IV PRN ×2 (18:07→18:24)
[2017-08-29 18:13] LABS: URINE BACTERIA MANY (NEG); URINE RBC 0 - 2 /hpf (0-2); URINE WBC NEGATIVE /hpf (0-6)
--- NOTE | 2017-08-29 19:02 | CP.PCM.CON ---
History of Present Illness - History of Present Illness History of Present Illness: MICU Consult Note Patient is 87yo female with PMHx of HTN, HLD, AVR, presented by EMS intubated, found at home lying on floor, unresponsive, intubated in the field. Pt wound to have large intraparenchymal bleed, with shift, with downward herniation. On exam patient has NO corneal reflex, no Gag reflex, does not overbreathe the ventilator, does not respond to verbal/noxious stimuli. ER physician Dr Jarrell spoke to Neurosurgery dr Wright, no acute neurosurgical intervention. I attempted to call the healthcare proxy on file, , no answer left voice mail to call back. PMhx as above PSHx as above Allergies unknown Meds unknown Review of Systems - Review of Systems Review of Systems: cannot obtain Past Patient History - Infectious Disease Hx of Infectious Diseases: None - Tetanus Immunizations Tetanus Immunization: Unknown - Past Medical History & Family History Past Medical History?: Yes - Past Social History Smoking Status: Never Smoked - CARDIAC Hx Cardiac Disorders: Yes (MR, aortic sclerosis s/p AVR (prosthetic hugo)) Hx Heart Murmur: Yes Hx Hypertension: Yes Other/Comment: mitral regurgitation aortic valve replacement 03/2017, rectal bleeding 1 month later off plavix just on baby asa now - PULMONARY Hx Respiratory Disorders: No - NEUROLOGICAL Hx Neurological Disorder: Yes HX Cerebrovascular Accident: Yes (lost periph vision 2/3 days 01/02/2017) Hx Transient Ischemic Attacks (TIA): Yes (x2 per EMS) - HEENT Hx HEENT Problems: No - RENAL Hx Chronic Kidney Disease: No - ENDOCRINE/METABOLIC Hx Endocrine Disorders: No - HEMATOLOGICAL/ONCOLOGICAL Hx Blood Disorders: Yes Hx Anemia: Yes (blood transfusion) Other/Comment: had 8 units of blood due to diverticulitis 3 or 4 yrs ago as per pt - INTEGUMENTARY Hx Dermatological Problems: No - MUSCULOSKELETAL/RHEUMATOLOGICAL Hx Falls: Yes (oct 2014) - GASTROINTESTINAL Hx Gastrointestinal Disorders: Yes Hx Crohn's Disease: (pt denies) Hx Diverticulitis: Yes Hx Gastroesophageal Reflux: Yes (history of Gi bleed) - GENITOURINARY/GYNECOLOGICAL Hx Genitourinary Disorders: No - PSYCHIATRIC Hx Psychophysiologic Disorder: No Hx Substance Use: No - SURGICAL HISTORY Hx Joint Replacement: Yes (left hip post fall) Hx Orthopedic Surgery: Yes Hx Valve Replacement: Yes (Aortic valve 03/2017) - ANESTHESIA Hx Anesthesia: Yes Hx Anesthesia Reactions: No Hx Malignant Hyperthermia: No Meds Allergies/Adverse Reactions: Allergies Allergy/AdvReac Type Severity Reaction Status Date / Time Unobtainable Allergy Verified 08/29/17 16:47 - Medications Medications: Current Medications Nicardipine HCl (Cardene Iv Premix) 20 mg in 200 mls @ 50 mls/hr IV .Q4H PRN; Protocol; 5 MG/HR PRN Reason: TITRATE PER MD ORDER Last Admin: 08/29/17 18:24 Dose: 75 mls/hr Potassium Chloride (Potassium Chloride 20 Meq/100 Ml) 20 meq in 100 mls @ 50 mls/hr IVPB Q2H STACY Stop: 08/29/17 21:59 Last Admin: 08/29/17 18:10 Dose: 50 mls/hr Physical Exam - Constitutional Additional comments: intubated - Eye Exam Pupil Exam: Fixed - Respiratory Exam Respiratory Exam: Clear to Auscultation Bilateral, NORMAL BREATHING PATTERN - Cardiovascular Exam Cardiovascular Exam: REGULAR RHYTHM, +S1, +S2 - GI/Abdominal Exam GI & Abdominal Exam: Normal Bowel Sounds, Soft - Extremities Exam Extremities exam: Positive for: normal inspection - Neurological Exam Additional comments: intubated, sedated NO corneal reflex, no gag reflex, does not overbreathe the ventilator Results - Vital Signs Recent Vital Signs: Last Vital Signs Temp 95.6 F L 08/29/17 16:41 Pulse 93 H 08/29/17 18:46 Resp 15 08/29/17 18:46 BP 130/72 08/29/17 18:46 Pulse Ox 97 08/29/17 18:46 - Labs Result Diagrams: 08/29/17 17:00 08/29/17 17:00 Labs: Laboratory Results - last 24 hr 08/29/17 08/29/17 08/29/17 16:50 17:00 17:00 WBC 23.1 H D RBC 4.24 Hgb 13.2 Hct 38.7 MCV 91.3 MCH 31.1 MCHC 34.1 RDW 13.0 Plt Count 264 MPV 10.4 Gran % 87.9 H Lymph % (Auto) 5.2 L [place] % (Auto) 6.9 H Eos % (Auto) 0.0 L Baso % (Auto) 0.0 Gran # 20.25 H Lymph # 1.2 [place] # 1.6 H Eos # 0.0 Baso # 0.01 PT 11.4 INR 1.04 APTT 25.1 Sodium Potassium Chloride Carbon Dioxide Anion Gap BUN Creatinine Est GFR ( Amer) Est GFR (Non-Af Amer) Random Glucose Calcium Total Bilirubin AST ALT Alkaline Phosphatase Total Creatine Kinase Troponin I Total Protein Albumin Globulin Albumin/Globulin Ratio Urine Color Light yellow Urine Appearance Clear Urine pH 6.0 Ur Specific [place] 1.020 Urine Protein 100 H Urine Glucose (UA) 100 H Urine Ketones Negative Urine Blood Trace-lysed H Urine Nitrate Negative Urine Bilirubin Negative Urine Urobilinogen 0.2 Ur Leukocyte Esterase Negative Urine RBC 0 - 2 Urine WBC Negative Ur Epithelial Cells None Urine Bacteria Many BBK History Checked 08/29/17 08/29/17 17:00 17:30 WBC RBC Hgb Hct MCV MCH MCHC RDW Plt Count MPV Gran % Lymph % (Auto) [place] % (Auto) Eos % (Auto) Baso % (Auto) Gran # Lymph # [place] # Eos # Baso # PT INR APTT Sodium 139 Potassium 2.7 L* D Chloride 97 L Carbon Dioxide 28 Anion Gap 17 BUN 18 Creatinine 0.8 Est GFR ( Amer) > 60 Est GFR (Non-Af Amer) > 60 Random Glucose 214 H Calcium 10.0 Total Bilirubin 1.2 AST 56 H D ALT 47 Alkaline Phosphatase 120 Total Creatine Kinase 173 Troponin I 0.09 D Total Protein 7.9 Albumin 4.6 Globulin 3.3 Albumin/Globulin Ratio 1.4 Urine Color Urine Appearance Urine pH Ur Specific [place] Urine Protein Urine Glucose (UA) Urine Ketones Urine Blood Urine Nitrate Urine Bilirubin Urine Urobilinogen Ur Leukocyte Esterase Urine RBC Urine WBC Ur Epithelial Cells Urine Bacteria BBK History Checked Patient has bt Assessment & Plan - Assessment and Plan (Free Text) Assessment: 87yo female a/w catastrophic intracranial hemorrhage. - no corneal, gag reflex, does not withdraw to pain/verbal stimuli - no neurosurgical intervention - prognosis extremely poor,grave - Im/ER attending spoke to family member Samuel Gregory who reported he would like to make the patient comfortable ICH with Herniation SDH PLAN: - cont with ventilatory support - extremely poor prognosis, no surgical intervention at this time - will attempt to contact HCP again [phone] for goals of care, patient is extremely poor prognosis, needs palliative measures - palliative care - replete K - BP control
--- NOTE | 2017-08-29 19:39 | CP.PCM.HP ---
<Whitney Ivan - Last Filed: 08/30/17 03:10> History of Present Illness - History of Present Illness History of Present Illness: PGY-2 H&P for hospitalist service 87 yo Female with PMH of diverticulosis, HTN, dyslipidemia, CVA, aortic valve replacement found unresponsive at home, intubated in the field by EMS. Patient is unresponsive, no family at bedside history taken from ER note. Patient was found at home unresponsive, lying on floor, head leaned against wall/bed. EMS was called by son. Patient was intubated for airway protection and brought to ED. No obvious trauma, blood, vomit was found at home. EMS reports patient with no corneal reflex but did withdraw to pain. Per ED patient spoke with grandson on phone at 10:23am and EMS was dispatched at 4pm. At that time patient was reportedly well. Further HPI/ROS unobtainable due to patient clinical condition. PMH: diverticulosis, HTN, dyslipidemia, CVA, aortic valve replacement, (taken from chart) PSH: social history: unknown family history unknown meds: unknown allergy: unknown Present on Admission - Present on Admission Any Indicators Present on Admission: No Review of Systems - Review of Systems Systems not reviewed;Unavailable: Acuity of Condition, Intubated Past Patient History - Infectious Disease Hx of Infectious Diseases: None - Tetanus Immunizations Tetanus Immunization: Unknown - Past Medical History & Family History Past Medical History?: Yes - Past Social History Smoking Status: Never Smoked - CARDIAC Hx Cardiac Disorders: Yes (MR, aortic sclerosis s/p AVR (prosthetic hugo)) Hx Heart Murmur: Yes Hx Hypertension: Yes Other/Comment: mitral regurgitation aortic valve replacement 03/2017, rectal bleeding 1 month later off plavix just on baby asa now - PULMONARY Hx Respiratory Disorders: No - NEUROLOGICAL Hx Neurological Disorder: Yes HX Cerebrovascular Accident: Yes (lost periph vision 2/3 days 01/02/2017) Hx Transient Ischemic Attacks (TIA): Yes (x2 per EMS) - HEENT Hx HEENT Problems: No - RENAL Hx Chronic Kidney Disease: No - ENDOCRINE/METABOLIC Hx Endocrine Disorders: No - HEMATOLOGICAL/ONCOLOGICAL Hx Blood Disorders: Yes Hx Anemia: Yes (blood transfusion) Other/Comment: had 8 units of blood due to diverticulitis 3 or 4 yrs ago as per pt - INTEGUMENTARY Hx Dermatological Problems: No - MUSCULOSKELETAL/RHEUMATOLOGICAL Hx Falls: Yes (oct 2014) - GASTROINTESTINAL Hx Gastrointestinal Disorders: Yes Hx Crohn's Disease: (pt denies) Hx Diverticulitis: Yes Hx Gastroesophageal Reflux: Yes (history of Gi bleed) - GENITOURINARY/GYNECOLOGICAL Hx Genitourinary Disorders: No - PSYCHIATRIC Hx Psychophysiologic Disorder: No Hx Substance Use: No - SURGICAL HISTORY Hx Joint Replacement: Yes (left hip post fall) Hx Orthopedic Surgery: Yes Hx Valve Replacement: Yes (Aortic valve 03/2017) - ANESTHESIA Hx Anesthesia: Yes Hx Anesthesia Reactions: No Hx Malignant Hyperthermia: No Meds Allergies/Adverse Reactions: Allergies Allergy/AdvReac Type Severity Reaction Status Date / Time Unobtainable Allergy Verified 08/29/17 16:47 Physical Exam - Constitutional Additional comments: unresponsive - Head Exam Head Exam: ATRAUMATIC, NORMOCEPHALIC - Eye Exam Eye Exam: absent: PERRL Additional comments: pupils fixed and dilated - ENT Exam Additional comments: patient intubated - Respiratory Exam Respiratory Exam: Clear to Auscultation Bilateral. absent: Decreased Breath Sounds, Rales, Rhonchi, Wheezes, Respiratory Distress, NORMAL BREATHING PATTERN - Cardiovascular Exam Cardiovascular Exam: Tachycardia, REGULAR RHYTHM, +S1, +S2. absent: Diastolic murmur, Systolic Murmur - GI/Abdominal Exam GI & Abdominal Exam: Normal Bowel Sounds, Soft. absent: Distended, Firm, Guarding - Extremities Exam Extremities exam: Positive for: normal inspection. Negative for: pedal edema, tenderness - Expanded Neurological Exam Expanded Coma Scale Eye Opening: None Coma Scale Motor Response: None Coma Scale Verbal: None Coma Scale Total: 3 - Skin Skin Exam: Dry, Intact, Normal Color Results - Vital Signs Recent Vital Signs: Last Vital Signs Temp 95.6 F L 08/29/17 16:41 Pulse 105 H 08/29/17 19:14 Resp 15 08/29/17 19:14 BP 117/60 08/29/17 19:14 Pulse Ox 97 08/29/17 19:14 - Labs Result Diagrams: 08/29/17 17:00 08/29/17 17:00 Assessment & Plan - Assessment and Plan (Free Text) Assessment: 87 yo Female with PMH of diverticulosis, HTN, dyslipidemia, CVA, aortic valve replacement found unresponsive at home, intubated in the field by EMS. SHe was found to have extensive right-sided intraparenchymal hemorrhage as well as subarachnoid and subdural hemorrhage with extensive midline shift and evidence of downward herniation. Plan: 1. intraparenchymal hemorrhage - patient is unresponsive, no corneal or gag reflex - CT showed extensive right-sided intraparenchymal hemorrhage as well as subarachnoid and subdural hemorrhage with extensive midline shift and evidence of downward herniation - ED spoke with neurosurgery, no surgical intervention at this time - patient is intubated for airway protection, does not require sedation - abg tomorrow morning - control BP with nicardipine 2. leukocytosis - possibly reactive vs infectious - afebrile - blood, urine cultures ordered 3. hypokalemia - 2.7 in ED, replaced - EKG normal sinus rhythm - will repeat labs in AM <Arcadio Hammer - Last Filed: 08/30/17 07:40> Results - Vital Signs Recent Vital Signs: Last Vital Signs Temp 97.9 F 08/30/17 06:02 Pulse 96 H 08/30/17 06:02 Resp 14 08/29/17 20:28 BP 57/36 L 08/30/17 06:02 Pulse Ox 99 08/30/17 06:02 - Labs Result Diagrams: 08/30/17 05:15 08/30/17 05:15 Labs: Laboratory Results - last 24 hr 08/29/17 08/30/17 08/30/17 22:23 05:15 05:15 WBC 13.6 H D RBC 3.49 L Hgb 10.5 L D Hct 31.5 L MCV 90.3 MCH 30.1 MCHC 33.3 RDW 13.3 Plt Count 215 MPV 10.3 Gran % 84.7 H Lymph % (Auto) 7.5 L [place] % (Auto) 7.7 H Eos % (Auto) 0.0 L Baso % (Auto) 0.1 Gran # 11.48 H Lymph # 1.0 L [place] # 1.1 H Eos # 0.0 Baso # 0.01 Sodium 140 Chloride 108 H Carbon Dioxide 26 Anion Gap 13 BUN 25 H Creatinine 1.4 H Est GFR ( Amer) 43 Est GFR (Non-Af Amer) 35 POC Glucose (mg/dL) 131 H Random Glucose 128 H Calcium 9.1 Phosphorus 2.4 L Magnesium 2.1 Total Bilirubin 1.0 AST 47 H ALT 43 Alkaline Phosphatase 80 Total Protein 5.9 Albumin 3.4 Globulin 2.5 Albumin/Globulin Ratio 1.3 Attending/Attestation - Attestation I have personally seen and examined this patient.: Yes I have fully participated in the care of the patient.: Yes I have reviewed all pertinent clinical information: Yes Notes (Text): 08/30/17 07:36 I agree with the above mentioned note with the addition/exception of the followin y.o. female with a massive intracranial hemorrhage (subdural, intraventricular and intraparenchymal) brought to the ED. The family reportedly informed the ED that they were going to opt for comfort care given that there was no neurosurgical intervention available due to the extremity and severe nature of her bleed. I attempted to reach the family using multiple phone numbers in the chart multiple times without success. I had the [place] police dept go to the home addresses to attempt to make contact as well without success. Phone numbers were left for callbacks on the voicemails. Patient has a terminal prognosis and currently has no corneal, pupillary or gag reflexes and she is not over-breathing the ventilator. Case endorsed to the daytime hospitalist team for followup.
[2017-08-29 20:43] VITALS: RESP 14; BMI 23.4
[2017-08-29] MEDS ORDERED: Pneumococcal 23-Valent Vaccine IM ONE (20:44)
[2017-08-29] MEDS ORDERED: Influenza Vaccine 60 mcg/0.5 mL SYR (4YR UP) IM ONE (20:44)
--- NOTE | 2017-08-29 22:54 | CARD ---
APPROVED REPORT EKG Measurement Heart [id number] <Conclusion> Normal sinus rhythm Prolonged QT Abnormal ECG
[2017-08-30] MEDS ORDERED: Metoprolol 1 mg/ml Inj IVP ONE ×2 (00:09→21:31)
[2017-08-30] MEDS ORDERED: Sodium Chloride 0.9% 500 ML IV STA ×2 (03:48→03:53)
[2017-08-30 06:17] LABS: BASO # 0.01 K/mm3 (0.0-2.0); BASO % 0.1 % (0.0-3.0); GRAN # 11.48 (1.4-6.5); GRAN % 84.7 % (50.0-68.0); HEMATOCRIT 31.5 % (36.0-48.0); LYMPH % 7.5 % (22.0-35.0); MEAN CELL VOLUME 90.3 fl (80.0-105.0); MEAN CORPUSCULAR HEMOGLOBIN 30.1 pg (25.0-35.0); MEAN CORPUSCULAR HGB CONC 33.3 g/dl (31.0-37.0); MEAN PLATELET VOLUME 10.3 fl (7.0-11.0); MONO # 1.1 (0.1-0.6); MONO % 7.7 % (1.0-6.0); RED CELL DISTRIBUTION WIDTH 13.3 % (11.5-14.5); WHITE BLOOD COUNT 13.6 10^3/ul (4.5-11.0)
[2017-08-30 06:49] LABS: ALB/GLOB RATIO 1.3 (1.1-1.8); CALCIUM 9.1 mg/dL (8.4-10.5); MAGNESIUM 2.1 mg/dL (1.7-2.2); PHOSPHOROUS 2.4 mg/dL (2.5-4.5); TOTAL PROTEIN 5.9 g/dL (5.8-8.3)
[2017-08-30] MEDS ORDERED: Sodium Chloride 0.9% 1,000 ML IV STA ×2 (08:10→11:30)
[2017-08-30 08:18] LABS: POTASSIUM 5.7 mmol/L (3.6-5.0)
[2017-08-30] MEDS ORDERED: Sodium Chloride 3% 500 ML IV SCH (09:30)
[2017-08-30 10:01] LABS: CALCIUM 8.8 mg/dL (8.4-10.5); POTASSIUM 4.9 mmol/L (3.6-5.0)
[2017-08-30] MEDS: NOREPINEPHRINE BIT/0.9 % NACL 4 MG/250 ML BAG IV PRN ×3 (12:00→21:00)
[2017-08-30 12:33] LABS: CALCIUM 8.5 mg/dL (8.4-10.5); POTASSIUM 4.5 mmol/L (3.6-5.0)
--- NOTE | 2017-08-30 12:58 | CP.PCM.PN ---
<Sergei Whitten - Last Filed: 08/31/17 12:29> Subjective - Date & Time of Evaluation Date of Evaluation: 08/30/17 Time of Evaluation: 08:30 - Subjective Subjective: Patient seen and evaluated at bedside in ICU. Patient intubated and off sedation. Patient is unresponsive. Patient with non reactive pupils, absent gag reflex, absent corneal reflex. Patient family attempted to be contacted by primary care team. No answer to phone number provided. Patient continues to be monitored in ICU. Objective - Vital Signs/Intake and Output Vital Signs (last 24 hours): Temp Pulse Resp BP Pulse Ox 97.9 F 96 H 14 57/36 L 100 08/30/17 06:02 08/30/17 06:02 08/30/17 07:35 08/30/17 06:02 08/30/17 07:35 Intake and Output: 08/30/17 08/30/17 06:59 18:59 Intake Total 1000 Output Total 1050 Balance -50 - Medications Medications: Current Medications Albuterol Sulfate (Albuterol 0.083% Inhal Chichi (2.5 Mg/3 Ml) Ud) 2.5 mg INH [id number] [facility] Sodium Chloride (Hypertonic Saline 3%) 500 mls @ 30 mls/hr IV .[id number] [facility] Last Admin: 08/30/17 10:06 Dose: 30 mls/hr NOREPINEPHRINE BIT/0.9 % NACL (Levophed 4 Mg/ 250 Ml Ns Premixed) 4 mg in 250 mls @ 18.75 mls/hr IV .[id number] PRN; Protocol; 5 MCG/MIN PRN Reason: TITRATE PER MD ORDER Sodium Chloride (Sodium Chloride 0.9%) 1,000 mls @ 999 mls/hr IV .[id number] STA Stop: 08/30/17 12:30 Pantoprazole Sodium (Protonix Inj) 40 mg IVP DAILY [facility] Last Admin: 08/30/17 10:13 Dose: 40 mg - Labs Labs: 08/30/17 05:15 08/30/17 12:15 PT 11.4 SECONDS (9.4-12.5) 08/29/17 17:00 INR 1.04 (0.93-1.08) 08/29/17 17:00 APTT 25.1 Seconds (25.1-36.5) 08/29/17 17:00 - Constitutional Appears: Other (appears stated age, intubated and unresponsive) - Head Exam Head Exam: ATRAUMATIC, NORMAL INSPECTION, NORMOCEPHALIC - Eye Exam Pupil Exam: Fixed Additional comments: pupils non reactive to light, absent corneal reflex - ENT Exam ENT Exam: Mucous Membranes Dry - Respiratory Exam Respiratory Exam: Clear to Ausculation Bilateral, NORMAL BREATHING PATTERN. absent: Rhonchi, Wheezes Additional comments: intubated and ventilated, non labored breathing - Cardiovascular Exam Cardiovascular Exam: REGULAR RHYTHM, +S1, +S2. absent: Murmur - GI/Abdominal Exam GI & Abdominal Exam: Soft, Normal Bowel Sounds. absent: Distended, Firm Assessment and Plan - Assessment and Plan (Free Text) Assessment: Patient is an 87 year old female with past medical history of diverticulosis, HTN, dyslipidemia, CVA, aortic valve replacement who was brought to [facility] intubated in the field by EMS after being found unresponsive at home. Patient was evaluated with head CT in ED and found to have massive intraparenchymal hemorrhage, involving subarachnoid, subdural hemorrhage with extensive midline shift with evidence of inferior herniation. Plan: 1. Intraparenchymal hemorrhage - CT Head: Extensive right sided intraparenchymal hemorrhage(subdural, subarachnoid hemorrhage) midline shift to left, intreaventricular hemorrhage, inferior herniation evidence - Per handoff neurosurgery contacted, no surgical intervention at this time - PE w/ absent gag, corneal reflex, unresponsive - intubated and on ventilator - Not requiring sedation - Hypotension requiring pressor support at this time - Hypertonic saline - Patient DNR status at this time per ICU team - Neurology consulted 2. Respiratory failure - Intubated and ventilated on PRVC - ABG serial, monitor adjust as necessary 3. Lekocytosis - Etiology: Reactive inflammation vs. infection - Reduction from admission - Afebrile, hypotensive, Regular rate - Blood and urine cultures GI ppx: Protonix DVT ppx: SCDs, AC contraindicated in setting of hemorrhage Case and plan discussed with attending <Adrian Cardenas - Last Filed: 08/31/17 14:08> Objective - Vital Signs/Intake and Output Vital Signs (last 24 hours): Temp Pulse Resp BP Pulse Ox 97.9 F 105 H 14 91/51 L 100 08/31/17 07:40 08/31/17 07:40 08/31/17 06:15 08/31/17 07:37 08/31/17 07:40 Intake and Output: 08/31/17 08/31/17 06:59 18:59 Intake Total 1037 250 Output Total 2000 Balance -963 250 - Medications Medications: Current Medications Albuterol Sulfate (Albuterol 0.083% Inhal Chichi (2.5 Mg/3 Ml) Ud) 2.5 mg INH [id number] [facility] Last Admin: 08/31/17 07:41 Dose: 2.5 mg Chlorhexidine Gluconate (Peridex) 15 ml PO BID STACY Last Admin: 08/31/17 09:11 Dose: 15 ml NOREPINEPHRINE BIT/0.9 % NACL (Levophed 4 Mg/ 250 Ml Ns Premixed) 4 mg in 250 mls @ 18.75 mls/hr IV .[id number] PRN; Protocol; 5 MCG/MIN PRN Reason: TITRATE PER MD ORDER Last Admin: 08/31/17 09:58 Dose: 20 mcg/min, 75 mls/hr Dextrose (Dextrose 5% In Water 1000 Ml) 1,000 mls @ 200 mls/hr IV .Q5H [facility] Last Admin: 08/31/17 07:45 Dose: 200 mls/hr Pantoprazole Sodium (Protonix Inj) 40 mg IVP DAILY [facility] Last Admin: 08/31/17 09:12 Dose: 40 mg Potassium Chloride (Potassium Chloride Oral Soln) 20 meq PO ONCE ONE Stop: 08/31/17 20:01 - Labs Labs: 08/31/17 05:45 08/31/17 12:44 PT 11.4 SECONDS (9.4-12.5) 08/29/17 17:00 INR 1.04 (0.93-1.08) 08/29/17 17:00 APTT 25.1 Seconds (25.1-36.5) 08/29/17 17:00 Attending/Attestation - Attestation I have personally seen and examined this patient.: Yes I have fully participated in the care of the patient.: Yes I have reviewed all pertinent clinical information, including history, physical exam and plan: Yes Notes (Text): 08/31/17 13:57 Patient was seen and examined with phlebotomist medical lab assistant. 87 year Female with PMH HTN, , CVA, Aortic valve replacement who was brought to hospital ,intubated in the field by EMS after being found unresponsive at home. Head CT in ED showed massive intraparenchymal hemorrhage, involving subarachnoid , subdural hemorrhage with extensive midline shift with evidence of inferior herniation.Patient is not responsive, pupil are not responsive, patient became hypotensive and was stated on pressor.Patient case was discussed with ICU atending. Prognosis is guarded.
[2017-08-30] MEDS: Albuterol 0.083% Inhal Sol (2.5 mg/3 mL) UD INH SCH ×2 (13:37→19:25)
--- NOTE | 2017-08-30 15:56 | CP.PCM.CON ---
History of Present Illness - History of Present Illness History of Present Illness: Mrs. Cruz is an 87-year-old woman with a past medical history of diverticulosis, HTN, dyslipidemia, CVA, aortic valve replacement found unresponsive at home, intubated in the field by EMS. A CT scan of the head was done in the ED and showed diffuse intraparenchymal, and intraventricular hemorrhage. There was right to left herniation as well as elements of brainstem herniation. She continues to be unresponsive with a GCS of 3T and an ICH score of 5. Review of Systems - Review of Systems Systems not reviewed;Unavailable: Acuity of Condition, Altered Mental Status, Intubated All systems: reviewed and no additional remarkable complaints except Past Patient History - Infectious Disease Hx of Infectious Diseases: None - Tetanus Immunizations Tetanus Immunization: Unknown - Past Medical History & Family History Past Medical History?: Yes - Past Social History Smoking Status: Never Smoked - CARDIAC Hx Cardiac Disorders: Yes (MR, aortic sclerosis s/p AVR (prosthetic hugo)) Hx Heart Murmur: Yes Hx Hypertension: Yes Other/Comment: mitral regurgitation aortic valve replacement 03/2017, rectal bleeding 1 month later off plavix just on baby asa now - PULMONARY Hx Respiratory Disorders: No - NEUROLOGICAL Hx Neurological Disorder: Yes HX Cerebrovascular Accident: Yes (lost periph vision 2/3 days 01/02/2017) Hx Transient Ischemic Attacks (TIA): Yes (x2 per EMS) - HEENT Hx HEENT Problems: No - RENAL Hx Chronic Kidney Disease: No - ENDOCRINE/METABOLIC Hx Endocrine Disorders: No - HEMATOLOGICAL/ONCOLOGICAL Hx Blood Disorders: Yes Hx Anemia: Yes (blood transfusion) Other/Comment: had 8 units of blood due to diverticulitis 3 or 4 yrs ago as per pt - INTEGUMENTARY Hx Dermatological Problems: No - MUSCULOSKELETAL/RHEUMATOLOGICAL Hx Falls: Yes (oct 2014) - GASTROINTESTINAL Hx Gastrointestinal Disorders: Yes Hx Crohn's Disease: (pt denies) Hx Diverticulitis: Yes Hx Gastroesophageal Reflux: Yes (history of Gi bleed) - GENITOURINARY/GYNECOLOGICAL Hx Genitourinary Disorders: No - PSYCHIATRIC Hx Psychophysiologic Disorder: No Hx Substance Use: No - SURGICAL HISTORY Hx Joint Replacement: Yes (left hip post fall) Hx Orthopedic Surgery: Yes Hx Valve Replacement: Yes (Aortic valve 03/2017) - ANESTHESIA Hx Anesthesia: Yes Hx Anesthesia Reactions: No Hx Malignant Hyperthermia: No Meds Allergies/Adverse Reactions: Allergies Allergy/AdvReac Type Severity Reaction Status Date / Time Unobtainable Allergy Verified 08/29/17 16:47 - Medications Medications: Current Medications Albuterol Sulfate (Albuterol 0.083% Inhal Chichi (2.5 Mg/3 Ml) Ud) 2.5 mg INH [id number] [facility] Last Admin: 08/30/17 13:37 Dose: 2.5 mg Chlorhexidine Gluconate (Peridex) 15 ml PO BID [facility] Sodium Chloride (Hypertonic Saline 3%) 500 mls @ 30 mls/hr IV .[id number] [facility] Last Admin: 08/30/17 10:06 Dose: 30 mls/hr NOREPINEPHRINE BIT/0.9 % NACL (Levophed 4 Mg/ 250 Ml Ns Premixed) 4 mg in 250 mls @ 18.75 mls/hr IV .[id number] PRN; Protocol; 5 MCG/MIN PRN Reason: TITRATE PER MD ORDER Last Admin: 08/30/17 12:00 Dose: 5 mcg/min, 18.75 mls/hr Pantoprazole Sodium (Protonix Inj) 40 mg IVP DAILY [facility] Last Admin: 08/30/17 10:13 Dose: 40 mg Physical Exam - Eye Exam Pupil Exam: Fixed, Mydriatic - Respiratory Exam Additional comments: Intubated - Cardiovascular Exam Cardiovascular Exam: +S1, +S2 - GI/Abdominal Exam GI & Abdominal Exam: Normal Bowel Sounds, Soft - Rectal Exam Rectal Exam: Deferred - Extremities Exam Extremities exam: Positive for: normal inspection, pedal edema - Neurological Exam Additional comments: Pupils are fixed and moderate in size. No response to painful stimulus. Bilateral upgoing plantar response. Breathing over the ventilator, but no cough and no gag. No corneal response. GCS= 3T. ICH score= 5 Results - Vital Signs Recent Vital Signs: Last Vital Signs Temp 97.9 F 08/30/17 06:02 Pulse 97 H 08/30/17 14:00 Resp 14 08/30/17 07:35 BP 57/36 L 08/30/17 06:02 Pulse Ox 100 08/30/17 07:35 - Labs Result Diagrams: 08/30/17 05:15 08/30/17 12:15 Labs: Laboratory Results - last 24 hr 08/29/17 08/30/17 08/30/17 22:23 05:15 05:15 WBC 13.6 H D RBC 3.49 L Hgb 10.5 L D Hct 31.5 L MCV 90.3 MCH 30.1 MCHC 33.3 RDW 13.3 Plt Count 215 MPV 10.3 Gran % 84.7 H Lymph % (Auto) 7.5 L [place] % (Auto) 7.7 H Eos % (Auto) 0.0 L Baso % (Auto) 0.1 Gran # 11.48 H Lymph # 1.0 L [place] # 1.1 H Eos # 0.0 Baso # 0.01 Sodium 140 Potassium 5.7 H* D Chloride 108 H Carbon Dioxide 26 Anion Gap 12 BUN 25 H Creatinine 1.4 H Est GFR ( Amer) 43 Est GFR (Non-Af Amer) 35 POC Glucose (mg/dL) 131 H Random Glucose 128 H Calcium 9.1 Phosphorus 2.4 L Magnesium 2.1 Total Bilirubin 1.0 AST 47 H ALT 43 Alkaline Phosphatase 80 Total Protein 5.9 Albumin 3.4 Globulin 2.5 Albumin/Globulin Ratio 1.3 08/30/17 08/30/17 09:45 12:15 WBC RBC Hgb Hct MCV MCH MCHC RDW Plt Count MPV Gran % Lymph % (Auto) [place] % (Auto) Eos % (Auto) Baso % (Auto) Gran # Lymph # [place] # Eos # Baso # Sodium 142 147 Potassium 4.9 4.5 Chloride 113 H 118 H Carbon Dioxide 26 22 Anion Gap 8 L 11 BUN 26 H 25 H Creatinine 1.4 H 1.4 H Est GFR ( Amer) 43 43 Est GFR (Non-Af Amer) 35 35 POC Glucose (mg/dL) Random Glucose 123 H 107 Calcium 8.8 8.5 Phosphorus Magnesium Total Bilirubin AST ALT Alkaline Phosphatase Total Protein Albumin Globulin Albumin/Globulin Ratio Assessment & Plan (1) Intracerebral hemorrhage Assessment and Plan: The size of the bleed along with the patient's age and medical co-morbidities indicate a very poor prognosis. With the ICH score of 5, the patient has a nearly 100% mortality rate and is unlikely to have any meaningful life if she survives. She is now DNR based on the family's wishes. She is not a good surgical candidate. No other recommendations at this time. Thank you. Status: Acute Priority: High
[2017-08-30] MEDS: Chlorhexidine 0.12% Oral Sol 480 ml Bot PO SCH (17:44)
--- NOTE | 2017-08-30 17:56 | RAD ---
HISTORY: central line placement confirmation COMPARISON: 08/29/2017 FINDINGS: LUNGS: No active pulmonary disease. PLEURA: Small left pleural effusion. No right pleural effusion. No pneumothorax. CARDIOVASCULAR: ET tube tip at tracheal michael and should be repositioned. Right internal jugular central venous catheter noted. Cardiac valvular prosthesis noted. OSSEOUS STRUCTURES: No significant abnormalities. VISUALIZED UPPER ABDOMEN: Normal. OTHER FINDINGS: None. IMPRESSION: No pneumothorax status post right central venous catheter insertion. Endotracheal tube tip at tracheal michael and should be repositioned more proximally. Findings were discussed by telephone with Dr. Alvarado at 5:50 p.m. on 08/30/2017.
[2017-08-30 18:00] LABS: CALCIUM 9.4 mg/dL (8.4-10.5); POTASSIUM 3.8 mmol/L (3.6-5.0)
--- NOTE | 2017-08-30 19:04 | PN ---
DATE: 08/30/2017 SUBJECTIVE: This is an 87-year-old lady with a history of severe and extended intraparenchymal subdural subarachnoid bleed, who presented to ICU with inability to protect her airways and maintain her ventilatory status. She was intubated for it. The patient currently is on PRBC 450/14/5/50%. OBJECTIVE: VITAL SIGNS: Blood pressure was 80/40 without Levophed. Levophed was started at 5 mcg per minute and blood pressure went up to 160. We will maintain blood pressure within 110 to 120 systolic range. Heart rate 104, oxygen saturation 99%, and respiratory rate 14. ENT: Head and neck atraumatic. LUNGS: Clear to auscultation bilaterally. HEART: Regular rate and rhythm. S1 and S2 normal. ABDOMEN: Soft, nontender, and nondistended. MUSCULOSKELETAL: No C/C/E. NEUROLOGIC: The patient breathing with vent, however, does respond to painful stimuli, was not seen moving upper and lower extremities. SKIN: Color is moist. PSYCHIATRIC: The patient is nonresponsive. LABORATORY DATA: WBC 13.6, hemoglobin 10.5, and platelet count 215. Sodium 142, potassium 4.9, chloride 113, BUN 26, creatinine 1.4, glucose 123, AST 47, and ALT 43. INR 1.04. MEDICATIONS: Albuterol, norepinephrine, Protonix, normal saline (2 liters normal saline bolus were given, however, blood pressure did not respond), 3% sodium chloride bolus of 70 mL was given and currently, the patient is on 3% sodium chloride at rate of 20 mL/hour. ASSESSMENT AND PLAN: This is an 87-year-old lady with extended intracranial, subarachnoid, subdural and intraparenchymal hemorrhage with extension to ventricles. The patient is nonresponsive to painful stimuli, however, still overbreathing vent, not enough to maintain ventilatory and gas exchange parameters WNL. Hypotension in the setting of intracranial bleed pertains poor prognosis; however, Neurology consultation for further recommendations is pending. The patient was deemed not to be a neurosurgical candidate by Neurosurgical Service. The patient received 3% sodium chloride bolus and currently is on 3% sodium chloride IV fluids. We will continue to maintain euvolemia, euglycemia, normothermia and oxygen saturation more than 90%. We will continue with maintaining blood pressure within 110 to 120 systolic. Central venous line was just placed and position confirmed by chest x-ray. We will continue with mechanical DVT prophylaxis. We will continue with GI prophylaxis. We will continue with head of bed elevated to 135 degrees and protective lung ventilation strategy. We will touch base with the patient's family about the advance directives. Addendum: spoke with family--pt is DNR. If neurology service concur--will discuss palliative/comfort care only ccm time 40 min Tino Cano MD MTDChristopher
[2017-08-30 21:24] LABS: CALCIUM 9.6 mg/dL (8.4-10.5); POTASSIUM 3.7 mmol/L (3.6-5.0)
--- NOTE | 2017-08-30 23:12 | CARD ---
APPROVED REPORT EKG Measurement Heart [id number] CO [id number] [id number] <Conclusion> Normal sinus rhythm Nonspecific ST and T wave abnormality Prolonged QT Abnormal ECG
--- NOTE | 2017-08-30 23:19 | CARD ---
APPROVED REPORT EKG Measurement Heart [id number] [place] [id number] <Conclusion> Sinus tachycardia Otherwise normal ECG
[2017-08-31] MEDS: Albuterol 0.083% Inhal Sol (2.5 mg/3 mL) UD INH SCH ×4 (01:45→19:20)
--- NOTE | 2017-08-31 01:49 | OP ---
PROCEDURE DATE: 08/30/2017 PROCEDURE: Right IJ CVL placement. INDICATION: Vasopressor support therapy. DESCRIPTION OF PROCEDURE: After obtaining an informed consent, operation area was sterilized. Maximum barrier precautions used. Right IJ was cannulated under real time ultrasound-guidance according to sterile Seldinger technique. Guidewire removed. Hemostasis achieved. Sterile dressings applied. Chest x-ray confirmed correct position of the CVL. The patient tolerated procedure well. EBL is minimal. Tino Cano MD
[2017-08-31 02:02] LABS: CALCIUM 9.9 mg/dL (8.4-10.5); POTASSIUM 3.6 mmol/L (3.6-5.0)
[2017-08-31 05:50] LABS: ARTERIAL BLOOD GAS HCO3 21.5 mmol/L (21-28); ARTERIAL BLOOD GAS PH 7.35 (7.35-7.45)
[2017-08-31 05:54] LABS: BASO # 0.02 K/mm3 (0.0-2.0); BASO % 0.1 % (0.0-3.0); EOS % 0.3 % (1.5-5.0); GRAN # 13.27 (1.4-6.5); GRAN % 85.1 % (50.0-68.0); HEMATOCRIT 34.9 % (36.0-48.0); LYMPH # 1.6 (1.2-3.4); LYMPH % 10.4 % (22.0-35.0); MEAN CELL VOLUME 96.4 fl (80.0-105.0); MEAN CORPUSCULAR HEMOGLOBIN 30.4 pg (25.0-35.0); MEAN CORPUSCULAR HGB CONC 31.5 g/dl (31.0-37.0); MEAN PLATELET VOLUME 10.3 fl (7.0-11.0); MONO # 0.6 (0.1-0.6); MONO % 4.1 % (1.0-6.0); RED CELL DISTRIBUTION WIDTH 14.4 % (11.5-14.5); WHITE BLOOD COUNT 15.6 10^3/ul (4.5-11.0)
[2017-08-31 06:30] LABS: ALB/GLOB RATIO 1.1 (1.1-1.8); BILIRUBIN,TOTAL 0.8 mg/dL (0.2-1.3); POTASSIUM 3.5 mmol/L (3.6-5.0); TOTAL PROTEIN 6.2 g/dL (5.8-8.3)
[2017-08-31] MEDS: NOREPINEPHRINE BIT/0.9 % NACL 4 MG/250 ML BAG IV PRN ×4 (06:30→21:16)
--- NOTE | 2017-08-31 08:59 | RAD ---
HISTORY: NGT placement COMPARISON: 08/31/2017 FINDINGS: LUNGS: Platelike atelectasis at left lung base. No infiltrate elsewhere. PLEURA: No significant pleural effusion identified, no pneumothorax apparent. CARDIOVASCULAR: Normal heart size. ET tube, NG tube and right IJ central venous catheter are unchanged. OSSEOUS STRUCTURES: No significant abnormalities. VISUALIZED UPPER ABDOMEN: Normal. OTHER FINDINGS: None. IMPRESSION: Platelike atelectasis at left base. Lines and tubes unchanged.
[2017-08-31] MEDS: Chlorhexidine 0.12% Oral Sol 480 ml Bot PO SCH ×2 (09:11→18:28)
--- NOTE | 2017-08-31 09:22 | RAD ---
HISTORY: intubated COMPARISON: 08/30/2017 FINDINGS: LUNGS: Patchy opacity at left base may represent subsegmental atelectasis. Not evident on prior examination. Followup. No other abnormal opacity. PLEURA: Minimal blunting of left costophrenic angle may reflect chronic pleural thickening or pleural effusion. No right pleural effusion. No pneumothorax. CARDIOVASCULAR: Endotracheal tube tip positioned 2.6 cm above the tracheal michael. Right internal jugular triple-lumen central venous catheter unchanged in position. OSSEOUS STRUCTURES: No significant abnormalities. VISUALIZED UPPER ABDOMEN: Normal. OTHER FINDINGS: None. IMPRESSION: Opacity at left base. Infiltrate versus subsegmental atelectasis. Followup advised. The endotracheal tube has been repositioned more proximally compared to the prior examination.
[2017-08-31 09:42] LABS: CALCIUM 9.9 mg/dL (8.4-10.5); POTASSIUM 3.3 mmol/L (3.6-5.0)
--- NOTE | 2017-08-31 12:42 | CP.PCM.PN ---
<Sergei Whitten - Last Filed: 08/31/17 12:30> Subjective - Date & Time of Evaluation Date of Evaluation: 08/31/17 Time of Evaluation: 08:45 - Subjective Subjective: Patient seen and examined in this AM. Patient ventilated and unresponsive, not on sedation. Patient noted to not be unresponsive to verbal and physical stimuli, GCS of 3. Overnight patient noted to be hypertensive and pressor support titrated down. Patient remains hypertensive at this time as well as hypernatremic. Patient being given free water flushes and D5W. Objective - Vital Signs/Intake and Output Vital Signs (last 24 hours): Temp Pulse Resp BP Pulse Ox 97.9 F 105 H 14 91/51 L 100 08/31/17 07:40 08/31/17 07:40 08/31/17 06:15 08/31/17 07:37 08/31/17 07:40 Intake and Output: 08/31/17 08/31/17 06:59 18:59 Intake Total 1037 250 Output Total 2000 Balance -963 250 - Medications Medications: Current Medications Albuterol Sulfate (Albuterol 0.083% Inhal [place]ichi (2.5 Mg/3 Ml) Ud) 2.5 mg INH [id number] [facility] Last Admin: 08/31/17 07:41 Dose: 2.5 mg Chlorhexidine Gluconate (Peridex) 15 ml PO BID [facility] Last Admin: 08/31/17 09:11 Dose: 15 ml NOREPINEPHRINE BIT/0.9 % NACL (Levophed 4 Mg/ 250 Ml Ns Premixed) 4 mg in 250 mls @ 18.75 mls/hr IV .[id number] PRN; Protocol; 5 MCG/MIN PRN Reason: TITRATE PER MD ORDER Last Admin: 08/31/17 09:58 Dose: 20 mcg/min, 75 mls/hr Dextrose (Dextrose 5% In Water 1000 Ml) 1,000 mls @ 200 mls/hr IV .Q5H [facility] Last Admin: 08/31/17 07:45 Dose: 200 mls/hr Pantoprazole Sodium (Protonix Inj) 40 mg IVP DAILY [facility] Last Admin: 08/31/17 09:12 Dose: 40 mg - Labs Labs: 08/31/17 05:45 08/31/17 09:00 PT 11.4 SECONDS (9.4-12.5) 08/29/17 17:00 INR 1.04 (0.93-1.08) 08/29/17 17:00 APTT 25.1 Seconds (25.1-36.5) 08/29/17 17:00 - Constitutional Appears: Other (intubated and unresponsive) - Head Exam Head Exam: ATRAUMATIC, NORMAL INSPECTION, NORMOCEPHALIC - Eye Exam Eye Exam: absent: PERRL Pupil Exam: Fixed. absent: Miosis, Mydriatic, Unequal - ENT Exam ENT Exam: Mucous Membranes Moist - Respiratory Exam Respiratory Exam: Clear to Ausculation Bilateral, NORMAL BREATHING PATTERN - Cardiovascular Exam Cardiovascular Exam: REGULAR RHYTHM, +S1, +S2 - GI/Abdominal Exam GI & Abdominal Exam: Soft, Normal Bowel Sounds - Extremities Exam Extremities Exam: Normal Capillary Refill. absent: Pedal Edema - Neurological Exam Additional comments: Unresponsive to verbal, painful stimuli. Absent cough, gag and corneal reflex, GCS 3, ICH score 5 - Skin Skin Exam: Dry, Intact, Warm Assessment and Plan - Assessment and Plan (Free Text) Assessment: Patient is an 87 year old female with past medical history of diverticulosis, HTN, dyslipidemia, CVA, aortic valve replacement who was brought to [facility] intubated in the field by EMS after being found unresponsive at home. Patient was evaluated with head CT in ED and found to have massive intraparenchymal hemorrhage, involving subarachnoid, subdural hemorrhage with extensive midline shift with evidence of inferior herniation. Plan: 1. Intraparenchymal hemorrhage - CT Head: Extensive right sided intraparenchymal hemorrhage(subdural, subarachnoid hemorrhage) midline shift to left, intreaventricular hemorrhage, inferior herniation evidence - Per handoff neurosurgery contacted, no surgical intervention at this time - PE w/ absent gag, corneal reflex, unresponsive - intubated and on ventilator, not overbreathing ventilator - Pressor support held at this time secondary to elevated BP - Hypertonic saline stopped - Neurology consulted - Very poor prognosis, ICH score of 5 - Not a good surgical candidate 2. Hypernatremia - Combination of Hypertoninc saline and likely lack of ADH production from intracranial bleed - Patient given DDAVP, free water and D5W - Monitor with BMP 3. Respiratory failure - Intubated and ventilated on PRVC - ABG serial, monitor adjust as necessary 4. Leukocytosis - Etiology: Reactive inflammation vs. infection - Reduction from admission - Afebrile, hypotensive, Regular rate - Blood culture negative to date - Urine culture G positive cocci, possibly contaminate GI ppx: Protonix DVT ppx: SCDs, AC contraindicated in setting of hemorrhage Code Status: DNR Case and plan discussed with attending <Adrian Cardenas - Last Filed: 08/31/17 14:13> Objective - Vital Signs/Intake and Output Vital Signs (last 24 hours): Temp Pulse Resp BP Pulse Ox 97.9 F 105 H 14 91/51 L 100 08/31/17 07:40 08/31/17 07:40 08/31/17 06:15 08/31/17 07:37 08/31/17 07:40 Intake and Output: 08/31/17 08/31/17 06:59 18:59 Intake Total 1037 250 Output Total 2000 Balance -963 250 - Medications Medications: Current Medications Albuterol Sulfate (Albuterol 0.083% Inhal Chichi (2.5 Mg/3 Ml) Ud) 2.5 mg INH [id number] [facility] Last Admin: 08/31/17 14:02 Dose: 2.5 mg Chlorhexidine Gluconate (Peridex) 15 ml PO BID [facility] Last Admin: 08/31/17 09:11 Dose: 15 ml NOREPINEPHRINE BIT/0.9 % NACL (Levophed 4 Mg/ 250 Ml Ns Premixed) 4 mg in 250 mls @ 18.75 mls/hr IV .[id number] PRN; Protocol; 5 MCG/MIN PRN Reason: TITRATE PER MD ORDER Last Admin: 08/31/17 09:58 Dose: 20 mcg/min, 75 mls/hr Dextrose (Dextrose 5% In Water 1000 Ml) 1,000 mls @ 200 mls/hr IV .Q5H [facility] Last Admin: 08/31/17 07:45 Dose: 200 mls/hr Pantoprazole Sodium (Protonix Inj) 40 mg IVP DAILY [facility] Last Admin: 08/31/17 09:12 Dose: 40 mg Potassium Chloride (Potassium Chloride Oral Soln) 20 meq PO ONCE ONE Stop: 08/31/17 20:01 - Labs Labs: 08/31/17 05:45 08/31/17 12:44 PT 11.4 SECONDS (9.4-12.5) 08/29/17 17:00 INR 1.04 (0.93-1.08) 08/29/17 17:00 APTT 25.1 Seconds (25.1-36.5) 08/29/17 17:00 Attending/Attestation - Attestation I have personally seen and examined this patient.: Yes I have fully participated in the care of the patient.: Yes I have reviewed all pertinent clinical information, including history, physical exam and plan: Yes Notes (Text): 08/31/17 14:08 Patient was seen and examined with medical scientific officer. 87 year Female with PMH HTN, , CVA, Aortic valve replacement who was brought to hospital ,intubated in the field by EMS after being found unresponsive at home. Head CT in ED showed massive intraparenchymal hemorrhage, involving subarachnoid , subdural hemorrhage with extensive midline shift with evidence of inferior herniation.Patient is not responsive, pupil are not responsive,there is no respiration..Patient is off pressor. Patient is hypernatremic today, has 4 L of urine in 24 hour, likely due to Central DI, wew ill check urine electrolyte and urine specific gravity.Patient is onD W and free water. Patient is DNR .Prognosis is guarded. 08/31/17 14:10
--- NOTE | 2017-08-31 12:55 | CP.CCUPN ---
<Kevin Quinones - Last Filed: 08/31/17 12:47> CCU Subjective - Physician Review Subjective (Free Text): 08/31/17 12:47 Kevin Quinones D.O. PGY-2, Critical Care Progress Note 87 year old female with a PMH of diverticulosis, HTN, dyslipidemia, previous CVA , and aortic valve replacement who presented to [facility] [place] after she was found unresponsive at home and was intubated in the field, found to have a extensive intracranial hemorrhage with evidence of downward herniation. Patient was seen and examined at bedside. Patient is intubated and comatose so no information can be gathered. No acute overnight events per nursing staff. CCU Objective - Vital Signs / Intake & Output Intake and Output (Last 8hrs): Intake & Output 08/30/17 08/31/17 08/31/17 22:59 06:59 14:59 Intake Total 3013 504 250 Output Total 1999 1999 Balance 1013 -1496 250 Weight 64.682 kg 61.643 kg Intake: IV 3013 504 250 Left Hand 0 Right Forearm 0 Right Hand 0 Right Internal Jugular 2480 287 Oral 0 0 Tube Feeding 0 TPN/PPN 0 Blood Product 0 Lipid 0 Albumin 0 Other 0 Output: Urine 1999 1999 2-way Urethral 1999 1999 Stool 0 Urine/Stool Mix 0 Emesis 0 Oral Regurgitation 0 Other 0 Other: # Bowel Movements 0 0 - Physical Exam Head: Positive for: Atraumatic, Normocephalic Pupils: Positive for: Other (fixed ~2mm) Ears: Positive for: Normal Mouth: Positive for: Moist Mucous Membranes, Other (intubated) Pharnyx: Positive for: Normal Nose (External): Positive for: Atraumatic Neck: Positive for: Trachea Midline Respiratory/Chest: Positive for: Clear to Auscultation. Negative for: Respiratory Distress, Accessory Muscle Use, Wheezes, Rales, Rhonchi Cardiovascular: Positive for: Regular Rate and Rhythm, Normal S1, S2. Negative for: Murmurs, Rub, Gallop Abdomen: Positive for: Normal Bowel Sounds. Negative for: Tenderness, Distention, Peritoneal Signs Upper Extremity: Negative for: Swelling Lower Extremity: Negative for: Edema Neurological: Positive for: Other (intubated, off sedation not awake, no cough reflex, no corneal reflex). Negative for: GCS=15 (GCS 3) Skin: Positive for: Warm, Dry - Medications Active Medications: Active Medications Generic Name Dose Route Start Last Admin Trade Name Chapoq PRN Reason Stop Dose Admin Albuterol Sulfate 2.5 mg 08/30/17 14:00 08/31/17 07:41 Albuterol 0.083% Inhal Chichi (2.5 Mg/3 Ml) Ud INH 2.5 mg [id number] STACY Administration Chlorhexidine Gluconate 15 ml 08/30/17 18:00 08/31/17 09:11 Peridex PO 15 ml BID STACY Administration NOREPINEPHRINE BIT/0.9 % NACL 4 mg in 250 mls @ 18.75 mls/hr 08/30/17 11:58 08/31/17 09:58 Levophed 4 Mg/ 250 Ml Ns Premixed IV 20 mcg/min .[id number] PRN 75 mls/hr TITRATE PER MD ORDER Administration Protocol 5 MCG/MIN Dextrose 1,000 mls @ 200 mls/hr 08/31/17 07:30 08/31/17 07:45 Dextrose 5% In Water 1000 Ml IV 200 mls/hr .Q5H STACY Administration Pantoprazole Sodium 40 mg 08/30/17 10:00 08/31/17 09:12 Protonix Inj IVP 40 mg DAILY STACY Administration - Patient Studies Lab Studies: Microbiology Studies 08/29/17 20:00 MRSA Culture (Admit) - Final Nose MRSA NOT DETECTED 08/29/17 19:06 Urine Culture - Preliminary Urine,Clean Catch Gram Positive Cocci Lab Studies 08/31/17 08/31/17 08/31/17 Range/Units 09:00 05:58 05:45 WBC (4.5-11.0) 10^3/ul RBC (3.5-6.1) 10^6/uL Hgb (12.0-16.0) g/dL Hct (36.0-48.0) % MCV (80.0-105.0) fl MCH (25.0-35.0) pg MCHC (31.0-37.0) g/dl RDW (11.5-14.5) % Plt Count (120.0-450.0) 10^3/uL MPV (7.0-11.0) fl Gran % (50.0-68.0) % Lymph % (Auto) (22.0-35.0) % [place] % (Auto) (1.0-6.0) % Eos % (Auto) (1.5-5.0) % Baso % (Auto) (0.0-3.0) % Gran # (1.4-6.5) Lymph # (1.2-3.4) [place] # (0.1-0.6) Eos # (0.0-0.7) Baso # (0.0-2.0) K/mm3 pCO2 (35-45) mm/Hg pO2 (80-100) mm/Hg HCO3 (21-28) mmol/L ABG pH (7.35-7.45) ABG Total CO2 (22-28) mmol.L ABG O2 Saturation (95-98) % ABG Base Excess (-2.0-3.0) mmol/L ABG Potassium (3.6-5.2) mmol/L Glucose (65-105) mg/dl Lactate (0.7-2.1) mmol/L FiO2 % Sodium 168 H* 171 H* (132-148) mmol/L Potassium 3.3 L 3.5 L (3.6-5.0) mmol/L Chloride 137 H 138 H (98-107) mmol/L Carbon Dioxide 22 24 (21-33) mmol/L Anion Gap 12 12 (10-20) BUN 25 H 24 H (7-21) mg/dL Creatinine 1.6 H 1.5 H (0.7-1.2) mg/dl Est GFR ( Amer) 37 40 Est GFR (Non-Af Amer) 30 33 POC Glucose (mg/dL) 126 H (65-110) mg/dL Random Glucose 158 H 120 H (70-110) mg/dL Calcium 9.9 10.0 (8.4-10.5) mg/dL Total Bilirubin 0.8 (0.2-1.3) mg/dL AST 45 H (14-36) U/L ALT 32 (7-56) U/L Alkaline Phosphatase 95 (38-126) U/L Total Protein 6.2 (5.8-8.3) g/dL Albumin 3.2 (3.0-4.8) g/dL Globulin 3.0 gm/dL Albumin/Globulin Ratio 1.1 (1.1-1.8) Arterial Blood Potassium (3.6-5.2) mmol/L 08/31/17 08/31/17 08/31/17 Range/Units 05:45 05:30 01:10 WBC 15.6 H (4.5-11.0) 10^3/ul RBC 3.62 (3.5-6.1) 10^6/uL Hgb 11.0 L (12.0-16.0) g/dL Hct 34.9 L (36.0-48.0) % MCV 96.4 D (80.0-105.0) fl MCH 30.4 (25.0-35.0) pg MCHC 31.5 (31.0-37.0) g/dl RDW 14.4 (11.5-14.5) % Plt Count 201 (120.0-450.0) 10^3/uL MPV 10.3 (7.0-11.0) fl Gran % 85.1 H (50.0-68.0) % Lymph % (Auto) 10.4 L (22.0-35.0) % [place] % (Auto) 4.1 (1.0-6.0) % Eos % (Auto) 0.3 L (1.5-5.0) % Baso % (Auto) 0.1 (0.0-3.0) % Gran # 13.27 H (1.4-6.5) Lymph # 1.6 (1.2-3.4) [place] # 0.6 (0.1-0.6) Eos # 0.0 (0.0-0.7) Baso # 0.02 (0.0-2.0) K/mm3 pCO2 39 (35-45) mm/Hg pO2 131.0 H (80-100) mm/Hg HCO3 21.5 (21-28) mmol/L ABG pH 7.35 (7.35-7.45) ABG Total CO2 22.7 (22-28) mmol.L ABG O2 Saturation 97.7 (95-98) % ABG Base Excess -3.8 L (-2.0-3.0) mmol/L ABG Potassium 3.3 L (3.6-5.2) mmol/L Glucose 119 H (65-105) mg/dl Lactate 1.2 (0.7-2.1) mmol/L FiO2 50.0 % Sodium 169.0 H* 166 H* (132-148) mmol/L Potassium 3.6 (3.6-5.0) mmol/L Chloride TEST NOT PERFORMED 133 H (98-107) mmol/L Carbon Dioxide 26 (21-33) mmol/L Anion Gap 11 (10-20) BUN 24 H (7-21) mg/dL Creatinine 1.4 H (0.7-1.2) mg/dl Est GFR ( Amer) 43 Est GFR (Non-Af Amer) 35 POC Glucose (mg/dL) (65-110) mg/dL Random Glucose 117 H (70-110) mg/dL Calcium 9.9 (8.4-10.5) mg/dL Total Bilirubin (0.2-1.3) mg/dL AST (14-36) U/L ALT (7-56) U/L Alkaline Phosphatase (38-126) U/L Total Protein (5.8-8.3) g/dL Albumin (3.0-4.8) g/dL Globulin gm/dL Albumin/Globulin Ratio (1.1-1.8) Arterial Blood Potassium 3.3 L (3.6-5.2) mmol/L 08/30/17 08/30/17 08/30/17 Range/Units 23:50 16:45 16:22 WBC (4.5-11.0) 10^3/ul RBC (3.5-6.1) 10^6/uL Hgb (12.0-16.0) g/dL Hct (36.0-48.0) % MCV (80.0-105.0) fl MCH (25.0-35.0) pg MCHC (31.0-37.0) g/dl RDW (11.5-14.5) % Plt Count (120.0-450.0) 10^3/uL MPV (7.0-11.0) fl Gran % (50.0-68.0) % Lymph % (Auto) (22.0-35.0) % [place] % (Auto) (1.0-6.0) % Eos % (Auto) (1.5-5.0) % Baso % (Auto) (0.0-3.0) % Gran # (1.4-6.5) Lymph # (1.2-3.4) [place] # (0.1-0.6) Eos # (0.0-0.7) Baso # (0.0-2.0) K/mm3 pCO2 (35-45) mm/Hg pO2 (80-100) mm/Hg HCO3 (21-28) mmol/L ABG pH (7.35-7.45) ABG Total CO2 (22-28) mmol.L ABG O2 Saturation (95-98) % ABG Base Excess (-2.0-3.0) mmol/L ABG Potassium (3.6-5.2) mmol/L Glucose (65-105) mg/dl Lactate (0.7-2.1) mmol/L FiO2 % Sodium 154 H (132-148) mmol/L Potassium 3.8 (3.6-5.0) mmol/L Chloride 125 H (98-107) mmol/L Carbon Dioxide 22 (21-33) mmol/L Anion Gap 11 (10-20) BUN 25 H (7-21) mg/dL Creatinine 1.3 H (0.7-1.2) mg/dl Est GFR ( Amer) 47 Est GFR (Non-Af Amer) 39 POC Glucose (mg/dL) 124 H 134 H (65-110) mg/dL Random Glucose 127 H (70-110) mg/dL Calcium 9.4 (8.4-10.5) mg/dL Total Bilirubin (0.2-1.3) mg/dL AST (14-36) U/L ALT (7-56) U/L Alkaline Phosphatase (38-126) U/L Total Protein (5.8-8.3) g/dL Albumin (3.0-4.8) g/dL Globulin gm/dL Albumin/Globulin Ratio (1.1-1.8) Arterial Blood Potassium (3.6-5.2) mmol/L 08/30/17 Range/Units 08:50 WBC (4.5-11.0) 10^3/ul RBC (3.5-6.1) 10^6/uL Hgb (12.0-16.0) g/dL Hct (36.0-48.0) % MCV (80.0-105.0) fl MCH (25.0-35.0) pg MCHC (31.0-37.0) g/dl RDW (11.5-14.5) % Plt Count (120.0-450.0) 10^3/uL MPV (7.0-11.0) fl Gran % (50.0-68.0) % Lymph % (Auto) (22.0-35.0) % [place] % (Auto) (1.0-6.0) % Eos % (Auto) (1.5-5.0) % Baso % (Auto) (0.0-3.0) % Gran # (1.4-6.5) Lymph # (1.2-3.4) [place] # (0.1-0.6) Eos # (0.0-0.7) Baso # (0.0-2.0) K/mm3 pCO2 (35-45) mm/Hg pO2 (80-100) mm/Hg HCO3 (21-28) mmol/L ABG pH (7.35-7.45) ABG Total CO2 (22-28) mmol.L ABG O2 Saturation (95-98) % ABG Base Excess (-2.0-3.0) mmol/L ABG Potassium (3.6-5.2) mmol/L Glucose (65-105) mg/dl Lactate (0.7-2.1) mmol/L FiO2 % Sodium 161 H* (132-148) mmol/L Potassium 3.7 (3.6-5.0) mmol/L Chloride 129 H (98-107) mmol/L Carbon Dioxide 24 (21-33) mmol/L Anion Gap 12 (10-20) BUN 23 H (7-21) mg/dL Creatinine 1.4 H (0.7-1.2) mg/dl Est GFR ( Amer) 43 Est GFR (Non-Af Amer) 35 POC Glucose (mg/dL) (65-110) mg/dL Random Glucose 111 H (70-110) mg/dL Calcium 9.6 (8.4-10.5) mg/dL Total Bilirubin (0.2-1.3) mg/dL AST (14-36) U/L ALT (7-56) U/L Alkaline Phosphatase (38-126) U/L Total Protein (5.8-8.3) g/dL Albumin (3.0-4.8) g/dL Globulin gm/dL Albumin/Globulin Ratio (1.1-1.8) Arterial Blood Potassium (3.6-5.2) mmol/L Laboratory Results - last 24 hr 08/30/17 08/30/17 08/30/17 08:50 16:22 16:45 WBC RBC Hgb Hct MCV MCH MCHC RDW Plt Count MPV Gran % Lymph % (Auto) [place] % (Auto) Eos % (Auto) Baso % (Auto) Gran # Lymph # [place] # Eos # Baso # pCO2 pO2 HCO3 ABG pH ABG Total CO2 ABG O2 Saturation ABG Base Excess ABG Potassium Glucose Lactate FiO2 Sodium 161 H* 154 H Potassium 3.7 3.8 Chloride 129 H 125 H Carbon Dioxide 24 22 Anion Gap 12 11 BUN 23 H 25 H Creatinine 1.4 H 1.3 H Est GFR ( Amer) 43 47 Est GFR (Non-Af Amer) 35 39 POC Glucose (mg/dL) 134 H Random Glucose 111 H 127 H Calcium 9.6 9.4 Total Bilirubin AST ALT Alkaline Phosphatase Total Protein Albumin Globulin Albumin/Globulin Ratio Arterial Blood Potassium 08/30/17 08/31/17 08/31/17 23:50 01:10 05:30 WBC RBC Hgb Hct MCV MCH MCHC RDW Plt Count MPV Gran % Lymph % (Auto) [place] % (Auto) Eos % (Auto) Baso % (Auto) Gran # Lymph # [place] # Eos # Baso # pCO2 39 pO2 131.0 H HCO3 21.5 ABG pH 7.35 ABG Total CO2 22.7 ABG O2 Saturation 97.7 ABG Base Excess -3.8 L ABG Potassium 3.3 L Glucose 119 H Lactate 1.2 FiO2 50.0 Sodium 166 H* 169.0 H* Potassium 3.6 Chloride 133 H TEST NOT PERFORMED Carbon Dioxide 26 Anion Gap 11 BUN 24 H Creatinine 1.4 H Est GFR ( Amer) 43 Est GFR (Non-Af Amer) 35 POC Glucose (mg/dL) 124 H Random Glucose 117 H Calcium 9.9 Total Bilirubin AST ALT Alkaline Phosphatase Total Protein Albumin Globulin Albumin/Globulin Ratio Arterial Blood Potassium 3.3 L 11/19/17 11/19/17 11/19/17 05:45 05:45 05:58 WBC 15.6 H RBC 3.62 Hgb 11.0 L Hct 34.9 L MCV 96.4 D MCH 30.4 MCHC 31.5 RDW 14.4 Plt Count 201 MPV 10.3 Gran % 85.1 H Lymph % (Auto) 10.4 L [place] % (Auto) 4.1 Eos % (Auto) 0.3 L Baso % (Auto) 0.1 Gran # 13.27 H Lymph # 1.6 [place] # 0.6 Eos # 0.0 Baso # 0.02 pCO2 pO2 HCO3 ABG pH ABG Total CO2 ABG O2 Saturation ABG Base Excess ABG Potassium Glucose Lactate FiO2 Sodium 171 H* Potassium 3.5 L Chloride 138 H Carbon Dioxide 24 Anion Gap 12 BUN 24 H Creatinine 1.5 H Est GFR ( Amer) 40 Est GFR (Non-Af Amer) 33 POC Glucose (mg/dL) 126 H Random Glucose 120 H Calcium 10.0 Total Bilirubin 0.8 AST 45 H ALT 32 Alkaline Phosphatase 95 Total Protein 6.2 Albumin 3.2 Globulin 3.0 Albumin/Globulin Ratio 1.1 Arterial Blood Potassium 08/31/17 09:00 WBC RBC Hgb Hct MCV MCH MCHC RDW Plt Count MPV Gran % Lymph % (Auto) [place] % (Auto) Eos % (Auto) Baso % (Auto) Gran # Lymph # [place] # Eos # Baso # pCO2 pO2 HCO3 ABG pH ABG Total CO2 ABG O2 Saturation ABG Base Excess ABG Potassium Glucose Lactate FiO2 Sodium 168 H* Potassium 3.3 L Chloride 137 H Carbon Dioxide 22 Anion Gap 12 BUN 25 H Creatinine 1.6 H Est GFR ( Amer) 37 Est GFR (Non-Af Amer) 30 POC Glucose (mg/dL) Random Glucose 158 H Calcium 9.9 Total Bilirubin AST ALT Alkaline Phosphatase Total Protein Albumin Globulin Albumin/Globulin Ratio Arterial Blood Potassium Fingerstick Blood Sugar Results: 126 Assessment/Plan - Assessment and Plan (Free Text) Assessment: 87 year old female with a PMH of diverticulosis, HTN, dyslipidemia, previous CVA , and aortic valve replacement who presented to [facility] [place] after she was found unresponsive at home and was intubated in the field, found to have a extensive intracranial hemorrhage with evidence of downward herniation Plan: Neurologic Head CT shows extensive intraparenchymal bleed with subdural and subarachnoid components and downward herniation Neurosx consulted, states no intervention indicated at this time Neuro following, recs appreciated Extremely poor prognosis Cardiovascular On levophed for hemodynamic support Cont IVF Maintain MAP >65 Cont to monitor Pulmnologic Intubated, PRVC 450/14/5/50% Maintain O2Sat >92% Cont nebs GI NPO Cont GI ppx w/ protonix Nephro/Electrolytes JUDY worsening, likely hypoperfusion and likely diabetes insipidus with 2L of urine made overnight causing hypovolemia Severe hypernatremia/hyperchloremia, started on D5W @ 200ml/hr and will add NGT and give free water flushes 250ml q4h Free water deficit ~6.1L Repleting K Heme On levophed to maintain hemodynamics Noted normocytic anemia No acute signs of bleeding Continue to monitor GI/DVT ppx: protonix/SCDs Dispo: very poor prognosis at this time, patient has extensive intracranial bleeding with downward herniation, family aware and will be coming to discuss case and possible withdrawal of care. Patient was seen and examined and case was discussed at length with attending physician. - Date & Time Date: 08/31/17 Time: 08:15 <Tino Cano - Last Filed: 08/31/17 14:47> CCU Objective - Vital Signs / Intake & Output Intake and Output (Last 8hrs): Intake & Output 08/30/17 08/31/17 08/31/17 22:59 06:59 14:59 Intake Total 3013 504 250 Output Total 1999 1999 Balance 1013 -1496 250 Weight 142 lb 9.6 oz 135 lb 14.4 oz Intake: IV 3013 504 250 Left Hand 0 Right Forearm 0 Right Hand 0 Right Internal Jugular 2480 287 Oral 0 0 Tube Feeding 0 TPN/PPN 0 Blood Product 0 Lipid 0 Albumin 0 Other 0 Output: Urine 1999 1999 2-way Urethral 1999 1999 Stool 0 Urine/Stool Mix 0 Emesis 0 Oral Regurgitation 0 Other 0 Other: # Bowel Movements 0 0 - Medications Active Medications: Active Medications Generic Name Dose Route Start Last Admin Trade Name Freq PRN Reason Stop Dose Admin Albuterol Sulfate 2.5 mg 08/30/17 14:00 08/31/17 14:02 Albuterol 0.083% Inhal Chichi (2.5 Mg/3 Ml) Ud INH 2.5 mg [id number] STACY Administration Chlorhexidine Gluconate 15 ml 08/30/17 18:00 08/31/17 09:11 Peridex PO 15 ml BID STACY Administration NOREPINEPHRINE BIT/0.9 % NACL 4 mg in 250 mls @ 18.75 mls/hr 08/30/17 11:58 08/31/17 09:58 Levophed 4 Mg/ 250 Ml Ns Premixed IV 20 mcg/min .[id number] PRN 75 mls/hr TITRATE PER MD ORDER Administration Protocol 5 MCG/MIN Dextrose 1,000 mls @ 200 mls/hr 08/31/17 07:30 08/31/17 07:45 Dextrose 5% In Water 1000 Ml IV 200 mls/hr .Q5H STACY Administration Pantoprazole Sodium 40 mg 08/30/17 10:00 08/31/17 09:12 Protonix Inj IVP 40 mg DAILY STACY Administration Potassium Chloride 20 meq 08/31/17 20:00 Potassium Chloride Oral Soln PO 08/31/17 20:01 ONCE ONE - Patient Studies Lab Studies: Microbiology Studies 08/29/17 20:00 MRSA Culture (Admit) - Final Nose MRSA NOT DETECTED 08/29/17 19:06 Urine Culture - Preliminary Urine,Clean Catch Gram Positive Cocci Lab Studies 08/31/17 08/31/17 08/31/17 Range/Units 12:44 09:00 05:58 WBC (4.5-11.0) 10^3/ul RBC (3.5-6.1) 10^6/uL Hgb (12.0-16.0) g/dL Hct (36.0-48.0) % MCV (80.0-105.0) fl MCH (25.0-35.0) pg MCHC (31.0-37.0) g/dl RDW (11.5-14.5) % Plt Count (120.0-450.0) 10^3/uL MPV (7.0-11.0) fl Gran % (50.0-68.0) % Lymph % (Auto) (22.0-35.0) % [place] % (Auto) (1.0-6.0) % Eos % (Auto) (1.5-5.0) % Baso % (Auto) (0.0-3.0) % Gran # (1.4-6.5) Lymph # (1.2-3.4) [place] # (0.1-0.6) Eos # (0.0-0.7) Baso # (0.0-2.0) K/mm3 pCO2 (35-45) mm/Hg pO2 (80-100) mm/Hg HCO3 (21-28) mmol/L ABG pH (7.35-7.45) ABG Total CO2 (22-28) mmol.L ABG O2 Saturation (95-98) % ABG Base Excess (-2.0-3.0) mmol/L ABG Potassium (3.6-5.2) mmol/L Glucose (65-105) mg/dl Lactate (0.7-2.1) mmol/L FiO2 % Sodium 163 H* 168 H* (132-148) mmol/L Potassium 3.3 L 3.3 L (3.6-5.0) mmol/L Chloride 132 H 137 H (98-107) mmol/L Carbon Dioxide 22 22 (21-33) mmol/L Anion Gap 11 12 (10-20) BUN 26 H 25 H (7-21) mg/dL Creatinine 1.7 H 1.6 H (0.7-1.2) mg/dl Est GFR ( Amer) 34 37 Est GFR (Non-Af Amer) 28 30 POC Glucose (mg/dL) 126 H (65-110) mg/dL Random Glucose 198 H 158 H (70-110) mg/dL Calcium 9.4 9.9 (8.4-10.5) mg/dL Total Bilirubin (0.2-1.3) mg/dL AST (14-36) U/L ALT (7-56) U/L Alkaline Phosphatase (38-126) U/L Total Protein (5.8-8.3) g/dL Albumin (3.0-4.8) g/dL Globulin gm/dL Albumin/Globulin Ratio (1.1-1.8) Arterial Blood Potassium (3.6-5.2) mmol/L 08/31/17 08/31/17 08/31/17 Range/Units 05:45 05:45 05:30 WBC 15.6 H (4.5-11.0) 10^3/ul RBC 3.62 (3.5-6.1) 10^6/uL Hgb 11.0 L (12.0-16.0) g/dL Hct 34.9 L (36.0-48.0) % MCV 96.4 D (80.0-105.0) fl MCH 30.4 (25.0-35.0) pg MCHC 31.5 (31.0-37.0) g/dl RDW 14.4 (11.5-14.5) % Plt Count 201 (120.0-450.0) 10^3/uL MPV 10.3 (7.0-11.0) fl Gran % 85.1 H (50.0-68.0) % Lymph % (Auto) 10.4 L (22.0-35.0) % [place] % (Auto) 4.1 (1.0-6.0) % Eos % (Auto) 0.3 L (1.5-5.0) % Baso % (Auto) 0.1 (0.0-3.0) % Gran # 13.27 H (1.4-6.5) Lymph # 1.6 (1.2-3.4) [place] # 0.6 (0.1-0.6) Eos # 0.0 (0.0-0.7) Baso # 0.02 (0.0-2.0) K/mm3 pCO2 39 (35-45) mm/Hg pO2 131.0 H (80-100) mm/Hg HCO3 21.5 (21-28) mmol/L ABG pH 7.35 (7.35-7.45) ABG Total CO2 22.7 (22-28) mmol.L ABG O2 Saturation 97.7 (95-98) % ABG Base Excess -3.8 L (-2.0-3.0) mmol/L ABG Potassium 3.3 L (3.6-5.2) mmol/L Glucose 119 H (65-105) mg/dl Lactate 1.2 (0.7-2.1) mmol/L FiO2 50.0 % Sodium 171 H* 169.0 H* (132-148) mmol/L Potassium 3.5 L (3.6-5.0) mmol/L Chloride 138 H TEST NOT PERFORMED (98-107) mmol/L Carbon Dioxide 24 (21-33) mmol/L Anion Gap 12 (10-20) BUN 24 H (7-21) mg/dL Creatinine 1.5 H (0.7-1.2) mg/dl Est GFR ( Amer) 40 Est GFR (Non-Af Amer) 33 POC Glucose (mg/dL) (65-110) mg/dL Random Glucose 120 H (70-110) mg/dL Calcium 10.0 (8.4-10.5) mg/dL Total Bilirubin 0.8 (0.2-1.3) mg/dL AST 45 H (14-36) U/L ALT 32 (7-56) U/L Alkaline Phosphatase 95 (38-126) U/L Total Protein 6.2 (5.8-8.3) g/dL Albumin 3.2 (3.0-4.8) g/dL Globulin 3.0 gm/dL Albumin/Globulin Ratio 1.1 (1.1-1.8) Arterial Blood Potassium 3.3 L (3.6-5.2) mmol/L 08/31/17 08/30/17 08/30/17 Range/Units 01:10 23:50 16:45 WBC (4.5-11.0) 10^3/ul RBC (3.5-6.1) 10^6/uL Hgb (12.0-16.0) g/dL Hct (36.0-48.0) % MCV (80.0-105.0) fl MCH (25.0-35.0) pg MCHC (31.0-37.0) g/dl RDW (11.5-14.5) % Plt Count (120.0-450.0) 10^3/uL MPV (7.0-11.0) fl Gran % (50.0-68.0) % Lymph % (Auto) (22.0-35.0) % [place] % (Auto) (1.0-6.0) % Eos % (Auto) (1.5-5.0) % Baso % (Auto) (0.0-3.0) % Gran # (1.4-6.5) Lymph # (1.2-3.4) [place] # (0.1-0.6) Eos # (0.0-0.7) Baso # (0.0-2.0) K/mm3 pCO2 (35-45) mm/Hg pO2 (80-100) mm/Hg HCO3 (21-28) mmol/L ABG pH (7.35-7.45) ABG Total CO2 (22-28) mmol.L ABG O2 Saturation (95-98) % ABG Base Excess (-2.0-3.0) mmol/L ABG Potassium (3.6-5.2) mmol/L Glucose (65-105) mg/dl Lactate (0.7-2.1) mmol/L FiO2 % Sodium 166 H* 154 H (132-148) mmol/L Potassium 3.6 3.8 (3.6-5.0) mmol/L Chloride 133 H 125 H (98-107) mmol/L Carbon Dioxide 26 22 (21-33) mmol/L Anion Gap 11 11 (10-20) BUN 24 H 25 H (7-21) mg/dL Creatinine 1.4 H 1.3 H (0.7-1.2) mg/dl Est GFR ( Amer) 43 47 Est GFR (Non-Af Amer) 35 39 POC Glucose (mg/dL) 124 H (65-110) mg/dL Random Glucose 117 H 127 H (70-110) mg/dL Calcium 9.9 9.4 (8.4-10.5) mg/dL Total Bilirubin (0.2-1.3) mg/dL AST (14-36) U/L ALT (7-56) U/L Alkaline Phosphatase (38-126) U/L Total Protein (5.8-8.3) g/dL Albumin (3.0-4.8) g/dL Globulin gm/dL Albumin/Globulin Ratio (1.1-1.8) Arterial Blood Potassium (3.6-5.2) mmol/L 08/30/17 08/30/17 Range/Units 16:22 08:50 WBC (4.5-11.0) 10^3/ul RBC (3.5-6.1) 10^6/uL Hgb (12.0-16.0) g/dL Hct (36.0-48.0) % MCV (80.0-105.0) fl MCH (25.0-35.0) pg MCHC (31.0-37.0) g/dl RDW (11.5-14.5) % Plt Count (120.0-450.0) 10^3/uL MPV (7.0-11.0) fl Gran % (50.0-68.0) % Lymph % (Auto) (22.0-35.0) % [place] % (Auto) (1.0-6.0) % Eos % (Auto) (1.5-5.0) % Baso % (Auto) (0.0-3.0) % Gran # (1.4-6.5) Lymph # (1.2-3.4) [place] # (0.1-0.6) Eos # (0.0-0.7) Baso # (0.0-2.0) K/mm3 pCO2 (35-45) mm/Hg pO2 (80-100) mm/Hg HCO3 (21-28) mmol/L ABG pH (7.35-7.45) ABG Total CO2 (22-28) mmol.L ABG O2 Saturation (95-98) % ABG Base Excess (-2.0-3.0) mmol/L ABG Potassium (3.6-5.2) mmol/L Glucose (65-105) mg/dl Lactate (0.7-2.1) mmol/L FiO2 % Sodium 161 H* (132-148) mmol/L Potassium 3.7 (3.6-5.0) mmol/L Chloride 129 H (98-107) mmol/L Carbon Dioxide 24 (21-33) mmol/L Anion Gap 12 (10-20) BUN 23 H (7-21) mg/dL Creatinine 1.4 H (0.7-1.2) mg/dl Est GFR ( Amer) 43 Est GFR (Non-Af Amer) 35 POC Glucose (mg/dL) 134 H (65-110) mg/dL Random Glucose 111 H (70-110) mg/dL Calcium 9.6 (8.4-10.5) mg/dL Total Bilirubin (0.2-1.3) mg/dL AST (14-36) U/L ALT (7-56) U/L Alkaline Phosphatase (38-126) U/L Total Protein (5.8-8.3) g/dL Albumin (3.0-4.8) g/dL Globulin gm/dL Albumin/Globulin Ratio (1.1-1.8) Arterial Blood Potassium (3.6-5.2) mmol/L Laboratory Results - last 24 hr 08/30/17 08/30/17 08/30/17 08:50 16:22 16:45 WBC RBC Hgb Hct MCV MCH MCHC RDW Plt Count MPV Gran % Lymph % (Auto) [place] % (Auto) Eos % (Auto) Baso % (Auto) Gran # Lymph # [place] # Eos # Baso # pCO2 pO2 HCO3 ABG pH ABG Total CO2 ABG O2 Saturation ABG Base Excess ABG Potassium Glucose Lactate FiO2 Sodium 161 H* 154 H Potassium 3.7 3.8 Chloride 129 H 125 H Carbon Dioxide 24 22 Anion Gap 12 11 BUN 23 H 25 H Creatinine 1.4 H 1.3 H Est GFR ( Amer) 43 47 Est GFR (Non-Af Amer) 35 39 POC Glucose (mg/dL) 134 H Random Glucose 111 H 127 H Calcium 9.6 9.4 Total Bilirubin AST ALT Alkaline Phosphatase Total Protein Albumin Globulin Albumin/Globulin Ratio Arterial Blood Potassium 08/30/17 08/31/17 08/31/17 23:50 01:10 05:30 WBC RBC Hgb Hct MCV MCH MCHC RDW Plt Count MPV Gran % Lymph % (Auto) [place] % (Auto) Eos % (Auto) Baso % (Auto) Gran # Lymph # [place] # Eos # Baso # pCO2 39 pO2 131.0 H HCO3 21.5 ABG pH 7.35 ABG Total CO2 22.7 ABG O2 Saturation 97.7 ABG Base Excess -3.8 L ABG Potassium 3.3 L Glucose 119 H Lactate 1.2 FiO2 50.0 Sodium 166 H* 169.0 H* Potassium 3.6 Chloride 133 H TEST NOT PERFORMED Carbon Dioxide 26 Anion Gap 11 BUN 24 H Creatinine 1.4 H Est GFR ( Amer) 43 Est GFR (Non-Af Amer) 35 POC Glucose (mg/dL) 124 H Random Glucose 117 H Calcium 9.9 Total Bilirubin AST ALT Alkaline Phosphatase Total Protein Albumin Globulin Albumin/Globulin Ratio Arterial Blood Potassium 3.3 L 08/31/17 08/31/17 08/31/17 05:45 05:45 05:58 WBC 15.6 H RBC 3.62 Hgb 11.0 L Hct 34.9 L MCV 96.4 D MCH 30.4 MCHC 31.5 RDW 14.4 Plt Count 201 MPV 10.3 Gran % 85.1 H Lymph % (Auto) 10.4 L [place] % (Auto) 4.1 Eos % (Auto) 0.3 L Baso % (Auto) 0.1 Gran # 13.27 H Lymph # 1.6 [place] # 0.6 Eos # 0.0 Baso # 0.02 pCO2 pO2 HCO3 ABG pH ABG Total CO2 ABG O2 Saturation ABG Base Excess ABG Potassium Glucose Lactate FiO2 Sodium 171 H* Potassium 3.5 L Chloride 138 H Carbon Dioxide 24 Anion Gap 12 BUN 24 H Creatinine 1.5 H Est GFR ( Amer) 40 Est GFR (Non-Af Amer) 33 POC Glucose (mg/dL) 126 H Random Glucose 120 H Calcium 10.0 Total Bilirubin 0.8 AST 45 H ALT 32 Alkaline Phosphatase 95 Total Protein 6.2 Albumin 3.2 Globulin 3.0 Albumin/Globulin Ratio 1.1 Arterial Blood Potassium 08/31/17 08/31/17 09:00 12:44 WBC RBC Hgb Hct MCV MCH MCHC RDW Plt Count MPV Gran % Lymph % (Auto) [place] % (Auto) Eos % (Auto) Baso % (Auto) Gran # Lymph # [place] # Eos # Baso # pCO2 pO2 HCO3 ABG pH ABG Total CO2 ABG O2 Saturation ABG Base Excess ABG Potassium Glucose Lactate FiO2 Sodium 168 H* 163 H* Potassium 3.3 L 3.3 L Chloride 137 H 132 H Carbon Dioxide 22 22 Anion Gap 12 11 BUN 25 H 26 H Creatinine 1.6 H 1.7 H Est GFR ( Amer) 37 34 Est GFR (Non-Af Amer) 30 28 POC Glucose (mg/dL) Random Glucose 158 H 198 H Calcium 9.9 9.4 Total Bilirubin AST ALT Alkaline Phosphatase Total Protein Albumin Globulin Albumin/Globulin Ratio Arterial Blood Potassium Attending/Attestation - Attestation I have personally seen and examined this patient.: Yes I have fully participated in the care of the patient.: Yes I have reviewed all pertinent clinical information: Yes Notes (Text): 08/31/17 14:37 87 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 Neurology service concurred dismal prognosis. As per my conversation with patient's family, they requested terminal extubation/comfort care only in am once family gather together. Request will be granted. ccm time 40 min
[2017-08-31] MEDS ORDERED: Potassium Chloride 40 mEq/30 ml LIQ UD PO ONE (12:57)
[2017-08-31 13:15] LABS: CALCIUM 9.4 mg/dL (8.4-10.5); POTASSIUM 3.3 mmol/L (3.6-5.0)
[2017-08-31 17:51] LABS: CALCIUM 9.4 mg/dL (8.4-10.5)
[2017-08-31 17:53] LABS: POTASSIUM 2.9 mmol/L (3.6-5.0)
[2017-08-31] MEDS: Potassium Chloride 40 mEq/30 ml LIQ UD NG SCH ×2 (18:30→22:49)
[2017-08-31] MEDS ORDERED: Potassium Chloride 20 mEq/15 ml LIQ UD PO ONE (20:00)
[2017-08-31 22:34] LABS: CALCIUM 9.4 mg/dL (8.4-10.5); POTASSIUM 3.3 mmol/L (3.6-5.0)
[2017-08-31] MEDS: Norepinephrine 8 MG in Sodium Chloride 0.9% 242 ML IV PRN (23:35)
[2017-09-01] MEDS: Albuterol 0.083% Inhal Sol (2.5 mg/3 mL) UD INH SCH ×2 (01:29→08:11)
[2017-09-01] MEDS: Potassium Chloride 40 mEq/30 ml LIQ UD NG SCH ×2 (01:53→06:31)
[2017-09-01] MEDS: Norepinephrine 8 MG in Sodium Chloride 0.9% 242 ML IV PRN (04:26)
[2017-09-01 06:59] LABS: BASO # 0.01 K/mm3 (0.0-2.0); BASO % 0.1 % (0.0-3.0); EOS # 0.2 (0.0-0.7); EOS % 2.2 % (1.5-5.0); GRAN # 8.12 (1.4-6.5); GRAN % 75.2 % (50.0-68.0); HEMATOCRIT 29.9 % (36.0-48.0); LYMPH # 1.9 (1.2-3.4); LYMPH % 17.8 % (22.0-35.0); MEAN CELL VOLUME 100.7 fl (80.0-105.0); MEAN CORPUSCULAR HEMOGLOBIN 30.3 pg (25.0-35.0); MEAN CORPUSCULAR HGB CONC 30.1 g/dl (31.0-37.0); MEAN PLATELET VOLUME 10.1 fl (7.0-11.0); MONO # 0.5 (0.1-0.6); MONO % 4.7 % (1.0-6.0); RED CELL DISTRIBUTION WIDTH 14.5 % (11.5-14.5); WHITE BLOOD COUNT 10.8 10^3/ul (4.5-11.0)
[2017-09-01 07:52] LABS: ALB/GLOB RATIO 0.9 (1.1-1.8); BILIRUBIN,TOTAL 0.8 mg/dL (0.2-1.3); CALCIUM 8.9 mg/dL (8.4-10.5)
[2017-09-01 08:37] LABS: POTASSIUM 5.9 mmol/L (3.6-5.0)
--- NOTE | 2017-09-01 09:40 | CP.PCM.CON ---
History of Present Illness - History of Present Illness History of Present Illness: Palliative consult requested by Dr Niraj Ruano copies to Dr Columba Keys Reason: Goals of care/ End of life 87 year old female with history of CVA, HTN and aortic valve replacement who was found unresponsive at home.Intubated in the field by EMS. CT of the head showed diffuse intaparenchymal and intraventricular hemorrhage with right herniation extending to the brain stem.GSC 3T and ICH of 5. PMHx: GI bleed,anemia,CVA,HTN, HLD, left hip replacement, CAD, aortic valve replacement. Family History: Unknown. Social History: Non smoker, no alcohol drug use. Lived independently. Advance Care Planning:The patient does not have an Advanced Directive. At families request the patient is now DNR. Review of Systems: As per HPI, the patient is intubated/unresponsive. Past Patient History - Infectious Disease Hx of Infectious Diseases: None - Tetanus Immunizations Tetanus Immunization: Unknown - Past Medical History & Family History Past Medical History?: Yes - Past Social History Smoking Status: Never Smoked - CARDIAC Hx Cardiac Disorders: Yes (MR, aortic sclerosis s/p AVR (prosthetic hugo)) Hx Heart Murmur: Yes Hx Hypertension: Yes Other/Comment: mitral regurgitation aortic valve replacement 03/2017, rectal bleeding 1 month later off plavix just on baby asa now - PULMONARY Hx Respiratory Disorders: No - NEUROLOGICAL Hx Neurological Disorder: Yes HX Cerebrovascular Accident: Yes (lost periph vision 2/3 days 01/02/2017) Hx Transient Ischemic Attacks (TIA): Yes (x2 per EMS) - HEENT Hx HEENT Problems: No - RENAL Hx Chronic Kidney Disease: No - ENDOCRINE/METABOLIC Hx Endocrine Disorders: No - HEMATOLOGICAL/ONCOLOGICAL Hx Blood Disorders: Yes Hx Anemia: Yes (blood transfusion) Other/Comment: had 8 units of blood due to diverticulitis 3 or 4 yrs ago as per pt - INTEGUMENTARY Hx Dermatological Problems: No - MUSCULOSKELETAL/RHEUMATOLOGICAL Hx Falls: Yes (oct 2014) - GASTROINTESTINAL Hx Gastrointestinal Disorders: Yes Hx Crohn's Disease: (pt denies) Hx Diverticulitis: Yes Hx Gastroesophageal Reflux: Yes (history of Gi bleed) - GENITOURINARY/GYNECOLOGICAL Hx Genitourinary Disorders: No - PSYCHIATRIC Hx Psychophysiologic Disorder: No Hx Substance Use: No - SURGICAL HISTORY Hx Joint Replacement: Yes (left hip post fall) Hx Orthopedic Surgery: Yes Hx Valve Replacement: Yes (Aortic valve 03/2017) - ANESTHESIA Hx Anesthesia: Yes Hx Anesthesia Reactions: No Hx Malignant Hyperthermia: No Meds Allergies/Adverse Reactions: Allergies Allergy/AdvReac Type Severity Reaction Status Date / Time Unobtainable Allergy Verified 08/29/17 16:47 - Medications Medications: Current Medications Albuterol Sulfate (Albuterol 0.083% Inhal Chichi (2.5 Mg/3 Ml) Ud) 2.5 mg INH [id number] [facility] Last Admin: 09/01/17 08:11 Dose: 2.5 mg Chlorhexidine Gluconate (Peridex) 15 ml PO BID [facility] Last Admin: 08/31/17 18:28 Dose: 15 ml Dextrose (Dextrose 5% In Water 1000 Ml) 1,000 mls @ 200 mls/hr IV .Q5H [facility] Last Admin: 09/01/17 08:39 Dose: 200 mls/hr Norepinephrine Bitartrate 8 mg (/ Sodium Chloride) 250 mls @ 56.25 mls/hr IV .Q4H27M PRN; Protocol; 30 MCG/MIN PRN Reason: TITRATE PER MD ORDER Last Titration: 09/01/17 08:40 Dose: 40 mcg/min, 75 mls/hr Pantoprazole Sodium (Protonix Inj) 40 mg IVP DAILY [facility] Last Admin: 08/31/17 09:12 Dose: 40 mg Physical Exam - Constitutional Appears: No Acute Distress - Head Exam Head Exam: NORMOCEPHALIC - Eye Exam Pupil Exam: Fixed - ENT Exam ENT Exam: Mucous Membranes Moist - Respiratory Exam Respiratory Exam: Decreased Breath Sounds - Cardiovascular Exam Cardiovascular Exam: REGULAR RHYTHM, +S1, +S2 - GI/Abdominal Exam GI & Abdominal Exam: Diminished Bowel Sounds, Soft - Extremities Exam Extremities exam: Positive for: normal capillary refill, pedal edema - Back Exam Back exam: NORMAL INSPECTION - Neurological Exam Additional comments: unresponsive - Skin Skin Exam: Dry, Warm - Additional Findings Additional findings: Palliative performance scale rating. Results - Vital Signs Recent Vital Signs: Last Vital Signs Temp 94.8 F L 09/01/17 08:30 Pulse 103 H 09/01/17 08:30 Resp 14 09/01/17 08:10 BP 60/38 L 09/01/17 08:30 Pulse Ox 93 L 09/01/17 08:30 - Labs Result Diagrams: 09/01/17 06:40 09/01/17 06:40 Labs: Laboratory Results - last 24 hr 08/31/17 08/31/17 08/31/17 09:00 11:51 12:44 WBC RBC Hgb Hct MCV MCH MCHC RDW Plt Count MPV Gran % Lymph % (Auto) [place] % (Auto) Eos % (Auto) Baso % (Auto) Gran # Lymph # [place] # Eos # Baso # Sodium 168 H* 163 H* Potassium 3.3 L 3.3 L Chloride 137 H 132 H Carbon Dioxide 22 22 Anion Gap 12 11 BUN 25 H 26 H Creatinine 1.6 H 1.7 H Est GFR ( Amer) 37 34 Est GFR (Non-Af Amer) 30 28 POC Glucose (mg/dL) 194 H Random Glucose 158 H 198 H Calcium 9.9 9.4 Total Bilirubin AST ALT Alkaline Phosphatase Total Protein Albumin Globulin Albumin/Globulin Ratio 08/31/17 08/31/17 08/31/17 17:00 17:54 21:40 WBC RBC Hgb Hct MCV MCH MCHC RDW Plt Count MPV Gran % Lymph % (Auto) [place] % (Auto) Eos % (Auto) Baso % (Auto) Gran # Lymph # [place] # Eos # Baso # Sodium 162 H* 157 H* Potassium 2.9 L* 3.3 L Chloride 134 H 130 H Carbon Dioxide 21 20 L Anion Gap 11 10 BUN 25 H 25 H Creatinine 1.7 H 1.7 H Est GFR ( Amer) 34 34 Est GFR (Non-Af Amer) 28 28 POC Glucose (mg/dL) 222 H Random Glucose 179 H 165 H Calcium 9.4 9.4 Total Bilirubin AST ALT Alkaline Phosphatase Total Protein Albumin Globulin Albumin/Globulin Ratio 08/31/17 09/01/17 09/01/17 23:49 06:40 06:40 WBC 10.8 D RBC 2.97 L Hgb 9.0 L D Hct 29.9 L MCV 100.7 D MCH 30.3 MCHC 30.1 L RDW 14.5 Plt Count 145 MPV 10.1 Gran % 75.2 H Lymph % (Auto) 17.8 L [place] % (Auto) 4.7 Eos % (Auto) 2.2 Baso % (Auto) 0.1 Gran # 8.12 H Lymph # 1.9 [place] # 0.5 Eos # 0.2 Baso # 0.01 Sodium 151 H Potassium 5.9 H* D Chloride 126 H Carbon Dioxide 17 L Anion Gap 14 BUN 27 H Creatinine 2.2 H Est GFR ( Amer) 25 Est GFR (Non-Af Amer) 21 POC Glucose (mg/dL) 260 H Random Glucose 159 H Calcium 8.9 Total Bilirubin 0.8 AST 59 H D ALT 36 Alkaline Phosphatase 72 Total Protein 5.0 L Albumin 2.4 L Globulin 2.6 Albumin/Globulin Ratio 0.9 L Assessment & Plan - Assessment and Plan (Free Text) Assessment: 87 alex old female with history of CVA,HTN, aortic valve replacement who is admitted with a catastrophic intraparenchymal/intraventricular hemorrhage with herniation extending to brainstem. She is DNR at family's request Family aware of patients extremely poor prognosis and has discussed the possibility terminal extubation/comfort care with the medical team Palliative services consulted to affirm family's goals of care and to provide psychosocial support. Family met with medical team, who again explained patient medical condition and prognosis. Family agreed to terminal extubation. Palliative support offered. Plan: End of life counseling
--- NOTE | 2017-09-01 11:07 | PN ---
DATE: SUBJECTIVE: An 87-year-old white female, seen in bed 7 in the Critical Care Unit, ICU. The patient is intubated and sedated. The patient has had a recent intracerebral bleed with nonresponse post intracerebral bleed. The patient has been made a DNR/DNI by the family. PHYSICAL EXAMINATION: VITAL SIGNS: Poor with a blood pressure of 60/38, temperature of 94.8, and pulse of 103. GENERAL: The patient is intubated and sedated. She is nonresponsive to verbal or noxious stimuli. She has no pasturing at this point. CHEST: Clear to auscultation and percussion. HEART: Reveals sinus rhythm. Systolic ejection murmur. ASSESSMENT AND PLAN: The patient is status post transcatheter aortic valve replacement, history of cerebrovascular accident in the past, and history of gastrointestinal bleed in the past. The patient will most likely by request of the family be taken off respiratory support today, she is off pressors. Her prognosis extremely poor. Philip Florian MD
[2017-09-01] MEDS: Chlorhexidine 0.12% Oral Sol 480 ml Bot PO SCH (11:08)
[2017-09-01 11:20] VITALS: O2SAT 93
--- NOTE | 2017-09-01 11:26 | CP.PCM.PN ---
Subjective - Date & Time of Evaluation Date of Evaluation: 09/01/17 Time of Evaluation: 07:10 - Subjective Subjective: Patient seen and examined, remains intubated, off sedation. No corneal, gag reflex, does not overbreath the ventilator. Awaiting family for possible terminal extubation. Palliative care involved. Objective - Vital Signs/Intake and Output Vital Signs (last 24 hours): Temp Pulse Resp BP Pulse Ox 93.4 F L 100 H 14 76/43 L 93 L 09/01/17 11:10 09/01/17 11:10 09/01/17 08:10 09/01/17 11:00 09/01/17 11:10 Intake and Output: 09/01/17 09/01/17 06:59 18:59 Intake Total 2901 200 Output Total 400 Balance 2501 200 - Medications Medications: Current Medications Albuterol Sulfate (Albuterol 0.083% Inhal Chichi (2.5 Mg/3 Ml) Ud) 2.5 mg INH [id number] [facility] Last Admin: 09/01/17 08:11 Dose: 2.5 mg Chlorhexidine Gluconate (Peridex) 15 ml PO BID [facility] Last Admin: 09/01/17 11:08 Dose: 15 ml Dextrose (Dextrose 5% In Water 1000 Ml) 1,000 mls @ 200 mls/hr IV .Q5H [facility] Last Admin: 09/01/17 08:39 Dose: 200 mls/hr Norepinephrine Bitartrate 8 mg (/ Sodium Chloride) 250 mls @ 56.25 mls/hr IV .Q4H27M PRN; Protocol; 30 MCG/MIN PRN Reason: TITRATE PER MD ORDER Last Titration: 09/01/17 08:40 Dose: 40 mcg/min, 75 mls/hr Pantoprazole Sodium (Protonix Inj) 40 mg IVP DAILY [facility] Last Admin: 09/01/17 11:08 Dose: 40 mg - Labs Labs: 09/01/17 06:40 09/01/17 06:40 PT 11.4 SECONDS (9.4-12.5) 08/29/17 17:00 INR 1.04 (0.93-1.08) 08/29/17 17:00 APTT 25.1 Seconds (25.1-36.5) 08/29/17 17:00 - Constitutional Appears: Well, No Acute Distress - Head Exam Head Exam: ATRAUMATIC - Eye Exam Pupil Exam: Fixed - ENT Exam ENT Exam: Mucous Membranes Moist - Respiratory Exam Respiratory Exam: Clear to Ausculation Bilateral, NORMAL BREATHING PATTERN - Cardiovascular Exam Cardiovascular Exam: REGULAR RHYTHM, +S1, +S2 - GI/Abdominal Exam GI & Abdominal Exam: Soft, Normal Bowel Sounds - Neurological Exam Additional comments: intubated, off sedation NO corneal, gag reflex, does not overbreath the ventilator Assessment and Plan - Assessment and Plan (Free Text) Assessment: 87yo female a/w catastrophic intracranial hemorrhage, with downward herniation. - no corneal, gag reflex, does not withdraw to pain/verbal stimuli - no neurosurgical intervention - prognosis extremely poor,grave - awaiting family for terminal extubation ICH with Herniation SDH PLAN - extremely poor prognosis, no surgical intervention at this time, neurology following - palliative care follow up - as per familys discussion with the MICU team yesterday, plan for terminal extubation/comfort care this morning - Patient is DNR, no further aggressive measures to be taken as per the family Critical care time 35 minutes
--- NOTE | 2017-09-01 12:07 | CP.PCM.PN ---
Subjective - Date & Time of Evaluation Date of Evaluation: 09/01/17 Time of Evaluation: 12:04 - Subjective Subjective: Ms. Cruz was seen and examined at the bedside in ICU. She remain son mechanical ventilation with Levophed drip at 40 mcg/min. He is not responsive to all stimuli. Family at bedside to sign all necessary for terminal weening. Supportive care given by the staff. Objective - Vital Signs/Intake and Output Vital Signs (last 24 hours): Temp Pulse Resp BP Pulse Ox 93.4 F L 100 H 14 76/43 L 93 L 09/01/17 11:10 09/01/17 11:10 09/01/17 08:10 09/01/17 11:00 09/01/17 11:10 Intake and Output: 09/01/17 09/01/17 06:59 18:59 Intake Total 2901 200 Output Total 400 Balance 2501 200 - Medications Medications: Current Medications Albuterol Sulfate (Albuterol 0.083% Inhal Chichi (2.5 Mg/3 Ml) Ud) 2.5 mg INH [id number] [facility] Last Admin: 09/01/17 08:11 Dose: 2.5 mg Chlorhexidine Gluconate (Peridex) 15 ml PO BID [facility] Last Admin: 09/01/17 11:08 Dose: 15 ml Dextrose (Dextrose 5% In Water 1000 Ml) 1,000 mls @ 200 mls/hr IV .Q5H [facility] Last Admin: 09/01/17 08:39 Dose: 200 mls/hr Norepinephrine Bitartrate 8 mg (/ Sodium Chloride) 250 mls @ 56.25 mls/hr IV .Q4H27M PRN; Protocol; 30 MCG/MIN PRN Reason: TITRATE PER MD ORDER Last Titration: 09/01/17 08:40 Dose: 40 mcg/min, 75 mls/hr Pantoprazole Sodium (Protonix Inj) 40 mg IVP DAILY [facility] Last Admin: 09/01/17 11:08 Dose: 40 mg - Labs Labs: 09/01/17 06:40 09/01/17 06:40 PT 11.4 SECONDS (9.4-12.5) 08/29/17 17:00 INR 1.04 (0.93-1.08) 08/29/17 17:00 APTT 25.1 Seconds (25.1-36.5) 08/29/17 17:00 - Constitutional Appears: No Acute Distress - Head Exam Head Exam: ATRAUMATIC - Neurological Exam Additional comments: Pupils are fixed and moderate in size. No response to painful stimulus. Bilateral upgoing plantar response. Breathing over the ventilator, but no cough and no gag. No corneal response. GCS= 3T. ICH score= 5 Assessment and Plan (1) Intracerebral hemorrhage Assessment & Plan: Case discussed with Dr. Montalvo, continue all current medical treatment. There is no new recommendation from neurology. Status: Acute
[2017-09-01] MEDS ORDERED: Morphine 2 mg/ml ISec IVP PRN (12:17)
--- NOTE | 2017-09-01 12:27 | CP.PCM.PN ---
Subjective - Date & Time of Evaluation Date of Evaluation: 09/01/17 Time of Evaluation: 12:23 - Subjective Subjective: ICU Team discussed case and prognosis with healthcare proxy Samuel Gregory. Healthcare proxy understands the extremely poor prognosis and had questions answered. Family and healthcare proxy wishes to proceed with terminal extubation. ICU team will proceed with terminal extubation as per family's request. Objective - Vital Signs/Intake and Output Vital Signs (last 24 hours): Temp Pulse Resp BP Pulse Ox 93.4 F L 100 H 14 76/43 L 93 L 09/01/17 11:10 09/01/17 11:10 09/01/17 08:10 09/01/17 11:00 09/01/17 11:10 Intake and Output: 09/01/17 09/01/17 06:59 18:59 Intake Total 2901 200 Output Total 400 Balance 2501 200 - Medications Medications: Current Medications Albuterol Sulfate (Albuterol 0.083% Inhal Chichi (2.5 Mg/3 Ml) Ud) 2.5 mg INH [id number] [facility] Last Admin: 09/01/17 08:11 Dose: 2.5 mg Chlorhexidine Gluconate (Peridex) 15 ml PO BID [facility] Last Admin: 09/01/17 11:08 Dose: 15 ml Dextrose (Dextrose 5% In Water 1000 Ml) 1,000 mls @ 200 mls/hr IV .Q5H [facility] Last Admin: 09/01/17 08:39 Dose: 200 mls/hr Norepinephrine Bitartrate 8 mg (/ Sodium Chloride) 250 mls @ 56.25 mls/hr IV .Q4H27M PRN; Protocol; 30 MCG/MIN PRN Reason: TITRATE PER MD ORDER Last Titration: 09/01/17 08:40 Dose: 40 mcg/min, 75 mls/hr Morphine Sulfate (Morphine) 4 mg IVP ONCE PRN PRN Reason: Pain, severe (8-10) Pantoprazole Sodium (Protonix Inj) 40 mg IVP DAILY [facility] Last Admin: 09/01/17 11:08 Dose: 40 mg - Labs Labs: 09/01/17 06:40 09/01/17 06:40 PT 11.4 SECONDS (9.4-12.5) 08/29/17 17:00 INR 1.04 (0.93-1.08) 08/29/17 17:00 APTT 25.1 Seconds (25.1-36.5) 08/29/17 17:00
[2017-09-01 12:28] VITALS: BP 65/39; PULSE 95; TEMP 93
--- NOTE | 2017-09-01 13:20 | CP.PCM.PRO ---
Pronouncement of Note - Clinical Findings Physical Exam: No Response Verbal/Painful Stimuli, Absent Peripheral Pulses{ Carotid & Femoral}, Absent Heart & Breath Sounds, No Pupillary Light Reflex, No Corneal Reflex, Pupils Fixed & Dilated - Pronouncement Time Time of Pronouncement of : 12:45 Additional Comments: Pronounced at 12:45PM; Family at bedside, PMD/Attending notified; EDRS started, to be completed by primary physician - Notifications Pronouncement Notifications: Family Notified, Atending Notified Customer Service Driver Notified: Yes - Autopsy Autopsy Requested: No [place] [id number]
--- NOTE | 2017-09-02 14:09 | PQF RESP ---
09/02/17 Dr. Joey Cardenas, Respiratory failure is documented on progress notes of 08/30 and 08/31. Please indicate if this is acute, chronic, or both, and whether there was hypoxia/ hypercapnia. Thank you. Clarification of your documentation is requested to better reflect the severity of illness and intensity of treatment of your patient. Indicators present [] Use of Home Oxygen [] Respiratory rate > 28 or <8/min (Labored respirations) [] PCO2 > 50 mm Hg or (Hypercapnia) (somnolence) [] PaO2 < 60 mm Hg or Hypoxemia (confusion) [] ABG blood gas pH < 7.35 [] SpO2 < 90% sat on Room Air [] Cyanosis [] Unable to Speak in Full Sentences [] Use of Accessory Muscles / Tripoding [] Wheezing [] Other: [] Location in the medical record that reflects the above clinical findings: [] Treatment Provided: [] PHYSICIAN'S RESPONSE 87 year Female with PMH HTN, , CVA, Aortic valve replacement who was brought to hospital ,intubated in the field by EMS after being found unresponsive at home. Head CT in ED showed massive intraparenchymal hemorrhage, involving subarachnoid, subdural hemorrhage with extensive midline shift with evidence of inferior herniation.Patient was intubated for air way protection for impending respiratory failure due to intracranial bleeding. Based on your medical judgment of the clinical indicators outlined above, are you treating this patient for a known or suspected: [] Acute Respiratory Failure (hypoxia or hypercapnia) [] Chronic Respiratory Failure (hypoxia or hypercapnia) [] Acute on Chronic Respiratory Failure (hypoxia or hypercapnia) [] Hypoxemia please specify ACUTE, CHRONIC or ACUTE on CHRONIC [] Other []_ [] If unable to determine, please check the box, sign and date. Present On Admission (POA) Indicator: [] Present at the time of admission [] Not present at the time of admission [] Clinically Undetermined In responding to this query, please exercise your independent professional judgment. The fact that a question is asked does not imply that any particular answer is desired or expected. Thank you for your clarification on this documentation. If you have any questions please call:[ ] * Thank you, [ ] product manager Chronic Respiratory Failure Description: Respiratory failure is a syndrome in which the respiratory system fails in one or both of its gas exchange functions: oxygenation and carbon dioxide elimination. In theory, respiratory failure is defined as a Pa02 value of <60 mm/Hg or a PaC02 of >50 mm/Hg. However, these values may be affected by renal compensation. Respiratory failure may be acute or chronic. While acute respiratory failure is characterized by life-threatening derangement in arterial blood gases and acid-base balance, the manifestations of chronic respiratory failure are less dramatic and may not be as readily apparent. Classifications: Respiratory failure may be classified as hypoxemic (usually characterized by Pa02 of <60 mm/Hg) or hypercapnic (usually characterized by PaC02 >50 mm/Hg) and either may be acute or chronic. Chronic hypercapnic respiratory failure develops over time and allows for renal compensation and an increase in bicarbonate concentration; therefore the pH is usually only slightly decreased. The distinction between acute and chronic hypoxemic respiratory failure cannot readily be made on the basis of ABGs; the clinical markers of chronic hypoxemia, such as polythycemia or cor pulmonale suggest a long standing disorder (chronic hypoxemic respiratory failure). Clinical Indicators: dyspnea at rest or "chronic" dyspnea, concomitant conditions such as polycythemia or cor pulmonale, requirement for continuous oxygen support, forced expiratory volume in one second (FEV1) of 49 or less, pursed lip breathing, "barrel" chest, hyperinflation by CXR, muscle wasting, malnutrition/obesity, poor exercise capacity, peripheral edema, description as a "blue bloater" (usually associated with chronic, obstructive bronchitis) or "pink puffer" (usually associated with emphysema) Risks: Chronic Hypoxemic Respiratory Failure - COPD, pulmonary fibrosis, asthma , pulmonary arterial hypertension, granulomatous lung diseases, congenital heart disease, bronchiectasis, kyphoscoliosis, obesity; Chronic Hypercapnic Respiratory Failure - COPD, severe asthma, myasthenia gravis, polyneuropathy, polio, head and cervical spine injuries, obesity hypoventilation syndrome. Treatment: supplemental oxygen, bronchodilators, corticosteroids, adequate nutrition, lung transplant References: Am. J. Respir. Crit. Care Med. "Global Strategy for the Diagnosis, Management and Prevention of COPD: GOLD Exectuive Summary," Cecil Sotelo Anzueto - 2007; Proceedings of the [place] [employer] "Mechanisms and Measurements of Dyspnea in COPD," Niru - 2006; WebMD; Respiratory Failure, Tino Bermudez MD - 04/2006; Vikram's Principles of Internal Medicine, 17th edition. Acute Respiratory Failure Acute Respiratory Failure indicators include: ~Respirations >28 ~Air hunger ~Use of accessory muscles of respiration ~Inability to speak in full sentences Cyanosis ~Pulse ox <90% RA or <95% on O2 pH <7.35 or >7.45 ~pO2 < 60 mm Hg (or 10mm below COPD patient's baseline) ~pCO2 >50mm Hg (or 10mm above COPD patient's baseline) "Respiratory failure may be assigned as a principal diagnosis when it is the condition established after study to be chiefly responsible for occasioning admission to the hospital. The fact that the respiratory failure was managed without intubation and mechanical ventilation does not preclude its use." [facility], 3rd Qtr., 1988, p. 7 MTDD
== END 2017-09-01 12:46 | DRG 64 ==
LOC: ED 16:40 → ERH 18:38 → CCU 20:10
PROVIDERS: ADMIT Internal Medicine; ATTEND Internal Medicine
PROC: 5A1945Z Respiratory Ventilation, 24-96 Consecutive Hours (ICD-10-PCS; principal; 2017-08-29)
PROC: 05HM33Z Insertion of Infusion Device into Right Internal Jugular Vein, Percutaneous Approach (ICD-10-PCS; 2017-08-30)
PROC: B543ZZA Ultrasonography of Right Jugular Veins, Guidance (ICD-10-PCS; 2017-08-30)
DX: I61.5 Nontraumatic intracerebral hemorrhage, intraventricular (principal); G93.5 Compression of brain; J96.90 Respiratory failure, unspecified, unspecified whether with hypoxia or hypercapnia; E87.0 Hyperosmolality and hypernatremia; K62.5 Hemorrhage of anus and rectum; I60.9 Nontraumatic subarachnoid hemorrhage, unspecified; I62.01 Nontraumatic acute subdural hemorrhage; I62.03 Nontraumatic chronic subdural hemorrhage; I10 Essential (primary) hypertension; I25.10 Atherosclerotic heart disease of native coronary artery without angina pectoris; I34.0 Nonrheumatic mitral (valve) insufficiency; Z95.2 Presence of prosthetic heart valve; E78.5 Hyperlipidemia, unspecified; K21.9 Gastro-esophageal reflux disease without esophagitis; Z66 Do not resuscitate; Z86.73 Personal history of transient ischemic attack (TIA), and cerebral infarction without residual deficits; Z96.642 Presence of left artificial hip joint; D64.9 Anemia, unspecified; Z87.19 Personal history of other diseases of the digestive system; D72.829 Elevated white blood cell count, unspecified; R40.2434 Glasgow coma scale score 3-8, 24 hours or more after hospital admission